=== PATIENT | male | born 1940 | race Caucasian/White ===

== ENCOUNTER 2018-07-03 16:46 | Observation (INO) | payer OTHER, BC ==
--- OUTSIDE RECORDS SUMMARY | 2018-07-03 16:50 | XMS REPORT | Clinical Summary ---
:1940 Author Organization [facility] Address [address] [place] [address] Care Team Providers Name Role Phone Luis MiguelEllis Primary Care Provider Allergies Active Allergy Reactions Severity Noted Date Comments No Known Drug Allergies 05/17/2016 Medications Medication Sig Dispensed Refills Start Date End Date Status aspirin (ECOTRIN) Take 1 tablet 0 Active 81 MG enteric every day by coated tablet oral route. FLAXSEED OIL ORAL Take 1,200 mg 0 Active by mouth. coconut oil 1,000 Take by 0 Active mg capsule mouth. cholecalciferol, Take by 0 Active vitamin D3, mouth. (VITAMIN D3) 5,000 unit tablet turmeric root Take by 0 Active extract 500 mg mouth. capsule glucosamine/chondr Take by 0 Active bird A sod (OSTEO mouth. BI-FLEX ORAL) vitamin B complex Take by mouth 0 Active (B COMPLEX 1 ORAL) daily. atorvastatin TAKE 1 TABLET 90 tablet 3 05/06/2018 Active (LIPITOR) 10 MG BY MOUTH tablet EVERY DAY amIODarone TAKE 1 TABLET 90 tablet 3 05/06/2018 Active (PACERONE) 200 MG BY MOUTH tablet EVERY DAY atorvastatin Take 1 tablet 90 tablet 3 04/27/2017 05/05/2018 Discontinued (LIPITOR) 10 MG (10 mg total) tablet by mouth daily. amIODarone Take 1 tablet 90 tablet 3 04/27/2017 05/05/2018 Discontinued (PACERONE) 200 MG (200 mg tablet total) by mouth daily. Active Problems Problem Noted Date abdominal aortic dilation (<3 cm) 10/11/2017 Abnormal electrocardiography 05/17/2016 Hyperlipidemia 05/17/2016 Hypertension 05/17/2016 Paroxysmal atrial fibrillation 05/17/2016 Encounters Date Type Specialty Care Team Description 05/14/2018 Orders Only Cardiology Sita Timothy Izzy At risk for amiodarone toxicity with superintendent terminal use (Primary Dx) 05/05/2018 Refill Cardiology Francine Estrada Med Refill MD [place] 05/03/2018 Office Visit Cardiology Francine Estrada Essential hypertension (Primary Dx); MD [place] Paroxysmal atrial fibrillation (HCC); Other hyperlipidemia; Hyperglycemia; On amiodarone therapy 10/11/2017 Office Visit Cardiovascular Robb Levy abdominal aortic dilation MD Delfino (<3 cm) (Primary Dx) 10/11/2017 Documentation Cardiovascular Sherrie Young, Reminder MA 10/08/2017 Documentation Cardiovascular Rylie Herrmann RN Follow-up on New Referral (Follow-up on New Referral) 09/26/2017 Documentation Cardiovascular Rylie Herrmann, RN New Referral for Dr. Levy from Dr. Joe Quinn (New Referral for Dr. Levy from Dr. Joe Quinn) after 07/02/2017 Immunizations Name Dates Previously Given Next Due FLUZONE HIGH-DOSE PF 04/15/2018 Family History Medical History Relation Name Comments No Known Problems Brother Hypertension Father No Known Problems Sister Relation Name Status Comments Brother Alive Father Mother Sister Alive Social History Tobacco Use Types Packs/Day Years Used Date Former Smoker 1 46 Smokeless Tobacco: Former User Tobacco Cessation: Counseling Given: Yes Alcohol Use Drinks/Week oz/Week Comments No Sex Assigned at Date Recorded Not on file Job Start Date Occupation Industry Not on file Not on file Not on file Travel History Travel Start Travel End No recent travel history available. Last Filed Vital Signs Vital Sign Reading Time Taken Blood Pressure 124/60 05/03/2018 2:35 PM CDT Pulse 66 05/03/2018 2:35 PM CDT Temperature 36.8 C (98.2 F) 10/11/2017 1:21 PM CDT Respiratory Rate 16 10/11/2017 1:21 PM CDT Oxygen Saturation - - Inhaled Oxygen Concentration - - Weight 81.6 kg (180 lb) 05/03/2018 2:35 PM CDT Height 172.7 cm (5' 8") 05/03/2018 2:35 PM CDT Body Mass Index 27.37 05/03/2018 2:35 PM CDT Plan of Treatment Health Maintenance Due Date Last Done Comments SHINGLES VACCINES (1 of 2) 1990 PNEUMOCOCCAL POLYSACCHARIDE VACCINE AGE 65 AND OVER 2005 PNEUMOCOCCAL-13 2005 INFLUENZA VACCINE Completed 04/15/2018 Procedures Procedure Name Priority Date/Time Associated Diagnosis Comments LIPID PANEL Routine 05/03/2018 3:26 Other hyperlipidemia Results for PM CDT this procedure are in the results section. THYROID PANEL WITH Routine 05/03/2018 3:26 Essential hypertension Results for TSH PM CDT Paroxysmal atrial this procedure fibrillation (HCC) are in the On amiodarone therapy results section. CBC WITH PLATELET Routine 05/03/2018 3:26 Essential hypertension Results for AND DIFFERENTIAL PM CDT Paroxysmal atrial this procedure fibrillation (HCC) are in the results section. COMPREHENSIVE Routine 05/03/2018 3:26 Essential hypertension Results for METABOLIC PANEL PM CDT Paroxysmal atrial this procedure fibrillation (HCC) are in the results section. ECG 12-LEAD Routine 05/03/2018 2:41 Essential hypertension Results for PM CDT Paroxysmal atrial this procedure fibrillation (HCC) are in the results section. ECG 12-LEAD Routine 10/11/2017 HEPATIC FUNCTION Routine 10/05/2017 9:23 Hypercholesteremia Results for PANEL AM CDT this procedure are in the results section. LIPID PANEL Routine 10/05/2017 9:23 Hypercholesteremia Results for AM CDT this procedure are in the results section. after 07/02/2017 Results Thyroid Panel With TSH (05/03/2018 3:26 PM CDT) T3 uptake 33 22 - 35 % [facility] [place] T4 9.3 4.9 - 10.5 mcg/dL [facility] [place] Free T4 index 3.1 1.4 - 3.8 [facility] [place] TSH 3.24 0.40 - 4.50 mIU/L [facility] [place] Specimen Blood Narrative Performed At FASTING:NO [facility] FASTING: NO Resulting Agency Comment Performing Organization Information: Site ID: [id number] Name: [facility] Address: [address] [place] [id number] Director: Shanda Hopson Performing Organization Address City/State/Zipcode Phone Number [employer] [address] [address] CBC with platelet and differential (05/03/2018 3:26 PM CDT) WBC 9.3 3.8 - 10.8 Thousand/uL [facility] [place] RBC 5.01 4.20 - 5.80 Million/uL [facility] [place] HGB 16.4 13.2 - 17.1 g/dL [facility] [place] HCT 47.3 38.5 - 50.0 % [facility] [place] MCV 94.4 80.0 - 100.0 fL [facility] [place] MCH 32.7 27.0 - 33.0 pg [facility] [place] MCHC 34.7 32.0 - 36.0 g/dL [facility] [place] RDW 13.4 11.0 - 15.0 % [facility] [place] Platelet count 299 140 - 400 Thousand/uL [facility] [place] MPV 9.7 7.5 - 12.5 fL [facility] [place] Neutrophils, absolute 6,305 1,500 - 7,800 cells/uL [facility] [place] Lymphocytes, absolute 1,767 850 - 3,900 cells/uL [facility] [place] Monocytes, absolute 856 200 - 950 cells/uL [facility] [place] Eosinophils, absolute 251 15 - 500 cells/uL [facility] [place] Basophils, absolute 121 0 - 200 cells/uL [facility] [place] Neutrophils 67.8 % [facility] [place] Lymphocytes 19.0 % [facility] [place] Monocytes 9.2 % [facility] [place] Eosinophils 2.7 % [facility] [place] Basophils + RC 1.3 % [facility] [place] Specimen Blood Narrative Performed At FASTING:NO [facility] FASTING: NO Resulting Agency Comment Performing Organization Information: Site ID: [id number] Name: [facility] Address: [address] [place] [id number] Director: Shanda Hopson Performing Organization Address City/State/Zipcode Phone Number [facility] [place] [phone] Lipid panel (05/03/2018 3:26 PM CDT)Only the most recent of2 resultswithin the time period is included. Cholesterol, total 137 <200 mg/dL [facility] [place] HDL cholesterol 43 >40 mg/dL [facility] [place] Triglycerides 122 <150 mg/dL [facility] [place] LDL cholesterol 74 mg/dL (calc) [facility] calculated Comment: [place] Reference range: <100 Desirable range <100 mg/dL for primary prevention; <70 mg/dL for patients with CHD or diabetic patients with > or=2 CHD risk factors. LDL-C is now calculated using the Maulik-Wise calculation, which is a validated novel method providing better accuracy than the Friedewald equation in the estimation of LDL-C. Maulik SS et al. RORO. 2013;310(19): 7489-5810 (http://education.Zeel/faq/YFZ396) Cholesterol/HDL ratio 3.2 <5.0 (calc) [facility] [place] Non-HDL cholesterol 94 <130 mg/dL [facility] Comment: (calc) [place] For patients with diabetes plus 1 major ASCVD risk factor, treating to a non-HDL-C goal of <100 mg/dL (LDL-C of <70 mg/dL) is considered a therapeutic option. Specimen Blood Narrative Performed At FASTING:NO [facility] FASTING: NO Resulting Agency Comment Performing Organization Information: Site ID: [id number] Name: [facility] Address: [address] [place] [id number] Director: Shanda Hopson Performing Organization Address City/State/Zipcode Phone Number [facility] [employer] [address] [address] Comprehensive metabolic panel (05/03/2018 3:26 PM CDT) Glucose 98 65 - 139 mg/dL [facility] Comment: [place] Non-fasting reference interval BUN, whole blood 23 7 - 25 mg/dL [facility] Creatinine 1.18 0.70 - 1.18 [facility] Comment: mg/dL [place] For patients >49 years of age, the reference limit for Creatinine is approximately 13% higher for people identified as -Bhutanese. EGFR Non-Afr. Bhutanese 59 (L) > OR=60 [facility] mL/min/1.73m2 [place] EGFR 69 > OR=60 [facility] mL/min/1.73m2 [place] BUN/creatinine ratio NOT APPLICABLE 6 - 22 (calc) [facility] Sodium 141 135 - 146 mmol/L [facility] [place] Potassium 4.5 3.5 - 5.3 mmol/L [facility] [place] Chloride 107 98 - 110 mmol/L [facility] [place] CO2 26 20 - 32 mmol/L [facility] Calcium 9.5 8.6 - 10.3 mg/dL [facility] [place] Protein 6.8 6.1 - 8.1 g/dL [facility] [place] Albumin, S 4.0 3.6 - 5.1 g/dL [facility] Globulin, total 2.8 1.9 - 3.7 g/dL [facility] (calc) [facility] Albumin/globulin ratio 1.4 1.0 - 2.5 (calc) [facility] [place] Total bilirubin 0.4 0.2 - 1.2 mg/dL [facility] [place] Alkaline phosphatase 88 40 - 115 U/L [facility] [place] AST 19 10 - 35 U/L [facility] [place] ALT 16 9 - 46 U/L [facility] [place] Specimen Blood Narrative Performed At FASTING:NO [facility] FASTING: NO Resulting Agency Comment Performing Organization Information: Site ID: [id number] Name: [facility] Address: [address] [place] [id number] Director: Shanda Hopson Performing Organization Address [facility] Phone Number [employer] [address] [address] ECG 12 lead (05/03/2018 2:41 PM CDT)Only the most recent of2 resultswithin the time period is included. Ventricular rate 64 [facility] Atrial rate 64 [facility] HI interval 196 [facility] QRSD interval 90 [facility] QT interval 430 [facility] QTC interval 443 [facility] P axis 1 68 [facility] QRS axis 1 -54 [facility] T wave axis 71 [facility] EKG impression Normal sinus rhythm-Left anterior fascicular block-T wave abnormality, consider anterolateral ischemia-Abnormal ECG-In automated comparison with ECG of 27-APR-2017 14:17,-T wave inversion less evident i [facility] n Lateral leads- Performing Organization Address [facility] Phone Number [facility] [address] [place] [address] Hepatic function panel (10/05/2017 9:23 AM CDT) Protein 6.3 6.0 - 8.5 g/dL [facility] Albumin, S 4.0 3.5 - 4.8 g/dL [facility] Total bilirubin 0.4 0.0 - 1.2 mg/dL [facility] Bilirubin direct 0.13 0.00 - 0.40 mg/dL [facility] Alkaline phosphatase 90 39 - 117 IU/L [facility] AST 13 0 - 40 IU/L [facility] ALT 9 0 - 44 IU/L [facility] Fasting status Y [facility] Specimen Blood Narrative Performed At Performed at: [facility] [address], [id number] Vacuum Truck Driver: Abdulaziz Argueta MD, Phone:[phone] Performing Organization Address City/State/Zipcode Phone Number [facility] after 07/02/2017 Insurance Payer Benefit Plan / Group Subscriber ID Type Phone Address MEDICARE MEDICARE PART A AND B xxxxxxxxxxx Medicare [place] BCBS BCBS PAR/TRAD PLAN xxxxxxxxxxxx Indemnity Advance Directives Patient has advance care planning documents on file. For more information, please contact:[facility] [place] [id number]
--- NOTE | 2018-07-03 17:20 | EKG ---
Test Date: 2018-07-03 Test Time: 17:04:22 3Rd Grade Teacher: CARIE MEASUREMENT RESULTS: Intervals: Rate: 75 [place]: 180 QRSD: 86 QT: 416 QTc: 464 [place]: P: 55 [place]: 180 QRS: -45 T: 77 INTERPRETIVE STATEMENTS: Normal sinus rhythm Left axis Septal infarct, age undetermined T wave abnormality, consider lateral ischemia Abnormal ECG Compared to ECG 07/29/2014 09:12:52 Myocardial infarct finding now present Sinus bradycardia no longer present T-wave abnormality still present Electronically Signed On 07-03-18 17:20:07 CHANCELLOR by Israel Romo
[2018-07-03] MEDS ORDERED: NA CHLORIDE 0.9% 1,000 ML ONE (17:23)
[2018-07-03 17:28] LABS: Absolute Lymphocytes (CBC) 1.2 K/uL (0.7-4.9); Absolute Monocytes 1.2 K/uL (0.1-1.3); Absolute Neutrophil 12.9 K/uL (1.8-8.0); Basophils % 0.4 % (0-1.3); Eosinophils % 0.3 % (0-4.4); Hematocrit 48.6 % (39.6-49.0); MPV 7.9 fL (7.6-11.3); Monocytes % 7.6 % (3.3-12.3); RBC Red Blood Cell Count 4.93 M/uL (4.33-5.43)
[2018-07-03 17:29] LABS: Protime INR 1.02
[2018-07-03 17:45] LABS: ALT/SGPT 21 U/L (12-78); AST/SGOT 18 U/L (15-37); Albumin 3.4 g/dL (3.4-5.0); Alkaline Phosphatase 94 U/L (45-117); BUN Blood Urea Nitrogen 15 mg/dL (7-18); Bicarbonate 25 mmol/L (21-32); Bilirubin Direct 0.2 mg/dL (0-0.2); Bilirubin Total 0.8 mg/dL (0.2-1.0); Glucose Level 119 mg/dL (74-106); Lipase 76 U/L (73-393); Magnesium 2.1 mg/dL (1.8-2.4); NT PRO-BNP 1466 pg/mL (<450); Protein, Total 7.5 g/dL (6.4-8.2); Sodium Level 140 mmol/L (136-145); Troponin (Emerg Dept Use Only) < 0.02 ng/mL (0.0-0.045)
--- NOTE | 2018-07-03 17:46 | EDPHYS ---
Physician Documentation [facility] Name: Edgar Lockwood Age: 77 yrs Sex: Male : 1940 Arrival Date: 07/03/2018 Time: 16:48 Bed 24 Private MD: None, None ED Physician Fernandez Berumen HPI: 07/03 17:36 This 77 yrs old Male presents to ER via Ambulatory with complaints of Chest rober Pain, Shoulder Pain, Shortness Of Breath. 17:36 The patient or guardian reports chest pain that is located primarily in the substernal rober area, anterior chest wall, bilaterally. Onset: 1 day(s) ago. The pain radiates to left neck, right neck, Associated signs and symptoms: Pertinent positives: dizziness, lightheadedness, shortness of breath. The chest pain is described as a heaviness, a pressure. Duration: The patient or guardian reports multiple episodes, with no pattern. Modifying factors: The symptoms are alleviated by nothing. the symptoms are aggravated by nothing. Severity of pain: At its worst the pain was mild in the emergency department the pain is unchanged. The patient has not experienced similar symptoms in the past. Historical: - Allergies: 16:57 No Known Allergies; aj - Home Meds: 16:57 atorvastatin 10 mg oral tab once daily [Active]; amiodarone 400 mg Oral tab 1 tab once aj daily [Active]; - PMHx: 16:57 Atrial Fib; Hyperlipidemia; aj - Immunization history:: Adult Immunizations up to date. - Social history:: Smoking status: Patient uses tobacco products, smokes one-half pack cigarettes per day. - Ebola Screening: : Patient negative for fever greater than or equal to 101.5 degrees Fahrenheit, and additional compatible Ebola Virus Disease symptoms Patient denies exposure to infectious person Patient denies travel to an Ebola-affected area in the 21 days before illness onset No symptoms or risks identified at this time. - Family history:: not pertinent. ROS: 17:36 Constitutional: Negative for fever, chills, and weight loss, Eyes: Negative for injury, rober pain, redness, and discharge, ENT: Negative for injury, pain, and discharge, Neck: Negative for injury, pain, and swelling, Respiratory: Negative for shortness of breath, cough, wheezing, and pleuritic chest pain, Abdomen/GI: Negative for abdominal pain, nausea, vomiting, diarrhea, and constipation, Back: Negative for injury and pain, : Negative for injury, bleeding, discharge, and swelling, MS/Extremity: Negative for injury and deformity, Skin: Negative for injury, rash, and discoloration, Neuro: Negative for headache, weakness, numbness, tingling, and seizure, Psych: Negative for depression, anxiety, suicide ideation, homicidal ideation, and hallucinations, Allergy/Immunology: Negative for hives, rash, and allergies, Endocrine: Negative for neck swelling, polydipsia, polyuria, polyphagia, and marked weight changes, Hematologic/Lymphatic: Negative for swollen nodes, abnormal bleeding, and unusual bruising. 17:36 Cardiovascular: Positive for chest pain, of the chest. Exam: 17:36 Constitutional: This is a well developed, well nourished patient who is awake, alert, rober and in no acute distress. Head/Face: Normocephalic, atraumatic. Eyes: Pupils equal round and reactive to light, extra-ocular motions intact. Lids and lashes normal. Conjunctiva and sclera are non-icteric and not injected. Cornea within normal limits. Periorbital areas with no swelling, redness, or edema. ENT: Nares patent. No nasal discharge, no septal abnormalities noted. Tympanic membranes are normal and external auditory canals are clear. Oropharynx with no redness, swelling, or masses, exudates, or evidence of obstruction, uvula midline. Mucous membranes moist. Neck: Trachea midline, no thyromegaly or masses palpated, and no cervical lymphadenopathy. Supple, full range of motion without nuchal rigidity, or vertebral point tenderness. No Meningismus. Chest/axilla: Normal chest wall appearance and motion. Nontender with no deformity. No lesions are appreciated. Cardiovascular: Regular rate and rhythm with a normal S1 and S2. No gallops, murmurs, or rubs. Normal PMI, no JVD. No pulse deficits. Respiratory: Lungs have equal breath sounds bilaterally, clear to auscultation and percussion. No rales, rhonchi or wheezes noted. No increased work of breathing, no retractions or nasal flaring. Abdomen/GI: Soft, non-tender, with normal bowel sounds. No distension or tympany. No guarding or rebound. No evidence of tenderness throughout. Back: No spinal tenderness. No costovertebral tenderness. Full range of motion. Male : Normal genitalia with no discharge or lesions. Skin: Warm, dry with normal turgor. Normal color with no rashes, no lesions, and no evidence of cellulitis. MS/ Extremity: Pulses equal, no cyanosis. Neurovascular intact. Full, normal range of motion. Neuro: Awake and alert, GCS 15, oriented to person, place, time, and situation. Cranial nerves II-XII grossly intact. Motor strength 5/5 in all extremities. Sensory grossly intact. Cerebellar exam normal. Normal gait. Psych: Awake, alert, with orientation to person, place and time. Behavior, mood, and affect are within normal limits. 17:36 Musculoskeletal/extremity: DVT Exam: No signs of deep vein thrombosis. no pain, no swelling, no tenderness, negative Homans' sign noted on exam, no appreciated bluish discoloration, no erythema, no increased warmth. Vital Signs: 16:57 BP 143 / 83; Pulse 85; Resp 20; Temp 99.2; Pulse Ox 100% on R/A; Weight 81.65 kg; aj Height 5 ft. 8 in. (172.72 cm); 19:24 BP 95 / 52; Pulse 57; Resp 17; Pulse Ox 96% on R/A; kr2 20:30 BP 110 / 76; Pulse 60; Resp 17; Pulse Ox 96% on R/A; kr2 21:44 BP 133 / 100; Pulse 64; Resp 17; Pulse Ox 95% on R/A; kr2 16:57 Body Mass Index 27.37 (81.65 kg, 172.72 cm) MDM: 17:01 Patient medically screened. [facility] 17:38 Data reviewed: vital signs, nurses notes, lab test result(s), EKG, radiologic studies, [facility] CT scan, plain films. 07/03 17:04 Order name: Basic Metabolic Panel; Complete Time: 17:48 [facility] 07/03 17:04 Order name: CBC with Diff; Complete Time: 17:35 [facility] 07/03 17:04 Order name: LFT's; Complete Time: 17:48 [facility] 07/03 17:04 Order name: Magnesium; Complete Time: 17:48 [facility] 07/03 17:04 Order name: NT PRO-BNP; Complete Time: 17:48 [facility] 07/03 17:04 Order name: PT-INR; Complete Time: 17:35 [facility] 07/03 17:04 Order name: Troponin (emerg Dept Use Only); Complete Time: 17:48 [facility] 07/03 17:04 Order name: XRAY Chest (1 view); Complete Time: 17:57 [facility] 07/03 17:04 Order name: Lipase; Complete Time: 17:48 [facility] 07/03 17:35 Order name: CT Aorta for Dissection; Complete Time: 19:23 [facility] 07/03 17:36 Order name: Blood Culture Adult (2) [facility] 07/03 18:04 Order name: CT Head Brain wo Cont; Complete Time: 19:23 [facility] 07/03 17:04 Order name: EKG; Complete Time: 17:05 [facility] 07/03 17:04 Order name: Cardiac monitoring; Complete Time: 17:10 [facility] 07/03 17:04 Order name: EKG - Nurse/Tech; Complete Time: 17:10 [facility] 07/03 17:04 Order name: IV Saline Lock; Complete Time: 17:10 [facility] 07/03 17:04 Order name: Labs collected and sent; Complete Time: 17:10 [facility] 07/03 17:04 Order name: O2 Per Protocol; Complete Time: 17:11 [facility] 07/03 17:04 Order name: O2 Sat Monitoring; Complete Time: 17:11 [facility] 07/03 17:04 Order name: Urine Dipstick-Ancillary (obtain specimen); Complete Time: 23:36 [facility] Administered Medications: 17:21 Drug: NS 0.9% 1000 ml Route: IV; Rate: 125 ml/hr; Site: right antecubital; kr2 22:10 Follow up: Response: No adverse reaction; IV Status: Infusion continued upon admission kr2 17:45 Drug: Lovenox 1 mg/kg Route: Sub-Q; Site: left lower abdomen; kr2 18:45 Follow up: Response: No adverse reaction kr2 17:45 Drug: Lopressor 25 mg Route: PO; kr2 19:00 Follow up: Response: No adverse reaction kr2 17:48 Drug: Aspirin 162 mg Route: PO; kr2 19:00 Follow up: Response: No adverse reaction kr2 17:48 Drug: Pepcid 20 mg Route: IVP; Site: right antecubital; kr2 18:15 Follow up: Response: No adverse reaction; Pain is decreased kr2 18:46 Drug: morphine 2 mg Route: IVP; Site: right antecubital; kr2 19:00 Follow up: Response: No adverse reaction; Pain is decreased kr2 18:46 Drug: Zofran 4 mg Route: IVP; Site: right antecubital; kr2 19:00 Follow up: Response: No adverse reaction kr2 20:57 Drug: Zosyn 3.375 grams Route: IVPB; Infused Over: 60 mins; Site: right antecubital; mg2 21:44 Follow up: Response: No adverse reaction; IV Status: Completed infusion kr2 22:00 Follow up: Response: No adverse reaction; IV Status: Completed infusion kr2 21:43 Not Given (Patient Refused): morphine 2 mg IVP once kr2 Disposition: 07/03/18 17:46 Hospitalization ordered by Andre Santamaria for Inpatient Admission. Preliminary diagnosis are Other chest pain, Dyspnea, Elevated white blood cell count, Essential (primary) hypertension, Abdominal tenderness - moderate rlq stranding, into ruq.etiology unclear. - Bed requested for Telemetry/MedSurg (Inpatient). - Status is Inpatient Admission. kr2 - Condition is Fair. - Problem is new. - Symptoms have improved. UTI on Admission? No Signatures: Dispatcher [employer] EDMS Kaleigh Tripp RN RN mw Myers, Amanda, RN RN aj Anderson, Corey, MD MD cha Reaves, Karey, RN RN kr2 Timothy Cortez RN RN mg2 Corrections: (The following items were deleted from the chart) 17:52 17:46 Hospitalization Ordered by Andre Santamaria MD for Observation. Preliminary diagnosis rober is Other chest pain; Dyspnea. Bed requested for Telemetry/MedSurg (observation). Status is Observation. Condition is Fair. Problem is new. Symptoms have improved. UTI on Admission? No. rober 19:41 17:52 07/03/2018 17:46 Hospitalization Ordered by Andre Santamaria MD for Observation. rober Preliminary diagnosis is Other chest pain; Dyspnea; Elevated white blood cell count; Essential (primary) hypertension. Bed requested for Telemetry/MedSurg (observation). Status is Observation. Condition is Fair. Problem is new. Symptoms have improved. UTI on Admission? No. rober 20:02 19:41 07/03/2018 17:46 Hospitalization Ordered by Andre Santamaria MD for Inpatient mw Admission. Preliminary diagnosis is Other chest pain; Dyspnea; Elevated white blood cell count; Essential (primary) hypertension; Abdominal tenderness - moderate rlq stranding, into ruq.etiology unclear. Bed requested for Telemetry/MedSurg (Inpatient). Status is Inpatient Admission. Condition is Fair. Problem is new. Symptoms have improved. UTI on Admission? No. [facility] 22:21 20:02 07/03/2018 17:46 Hospitalization Ordered by Andre Santamaria MD for Inpatient kr2 Admission. Preliminary diagnosis is Other chest pain; Dyspnea; Elevated white blood cell count; Essential (primary) hypertension; Abdominal tenderness - moderate rlq stranding, into ruq.etiology unclear. Bed requested for Telemetry/MedSurg (Inpatient). Status is Inpatient Admission. Condition is Fair. Problem is new. Symptoms have improved. UTI on Admission? No. mw
--- NOTE | 2018-07-03 17:46 | ER ---
Nurse's Notes [facility] Name: dEgar Lockwood Age: 77 yrs Sex: Male : 1940 Arrival Date: 07/03/2018 Time: 16:48 Bed 24 Private MD: None, None Diagnosis: Other chest pain;Dyspnea;Elevated white blood cell count;Essential (primary) hypertension;Abdominal tenderness-moderate rlq stranding, into ruq.etiology unclear Presentation: 07/03 16:56 Presenting complaint: Patient states: Sternal chest pain and SOB that radiates to aj bilateral shoulders that started this AM. Transition of care: patient was not received from another setting of care. Onset of symptoms was July 03, 2018. Risk Assessment: Do you want to hurt yourself or someone else? Patient reports no desire to harm self or others. Initial Sepsis Screen: Does the patient meet any 2 criteria? No. Patient's initial sepsis screen is negative. Does the patient have a suspected source of infection? No. Patient's initial sepsis screen is negative. Care prior to arrival: None. 16:56 Method Of Arrival: Ambulatory 16:56 Acuity: CLINT 3 Triage Assessment: 16:57 General: Appears in no apparent distress. uncomfortable, Behavior is calm, cooperative, aj appropriate for age. Pain: Complains of pain in chest. Neuro: Level of Consciousness is awake, alert, obeys commands, Oriented to person, place, time, situation, Appropriate for age. Cardiovascular: Reports chest pain, shortness of breath, Capillary refill < 3 seconds in bilateral fingers Patient's skin is warm and dry. Respiratory: Airway is patent Trachea midline Respiratory effort is even, unlabored, Respiratory pattern is regular, symmetrical. Derm: Skin is intact, is healthy with good turgor, Skin is pink, warm \T\ dry. normal. Historical: - Allergies: 16:57 No Known Allergies; aj - Home Meds: 16:57 atorvastatin 10 mg oral tab once daily [Active]; amiodarone 400 mg Oral tab 1 tab once aj daily [Active]; - PMHx: 16:57 Atrial Fib; Hyperlipidemia; aj - Immunization history:: Adult Immunizations up to date. - Social history:: Smoking status: Patient uses tobacco products, smokes one-half pack cigarettes per day. - Ebola Screening: : Patient negative for fever greater than or equal to 101.5 degrees Fahrenheit, and additional compatible Ebola Virus Disease symptoms Patient denies exposure to infectious person Patient denies travel to an Ebola-affected area in the 21 days before illness onset No symptoms or risks identified at this time. - Family history:: not pertinent. Screenin:05 Abuse screen: Denies threats or abuse. Denies injuries from another. Nutritional kr2 screening: No deficits noted. Tuberculosis screening: No symptoms or risk factors identified. Fall Risk None identified. Assessment: 17:05 General: Appears in no apparent distress. uncomfortable, well groomed, well developed, kr2 well nourished, Behavior is calm, cooperative, appropriate for age. Pain: Complains of pain in xyphoid area, mid-sternal area, right lateral anterior chest and right lateral posterior chest Pain radiates to right scapular area Pain currently is 6 out of 10 on a pain scale. Quality of pain is described as sharp, shooting, squeezing, Pain began gradually, Is continuous. Neuro: Level of Consciousness is awake, alert, obeys commands, Oriented to person, place, time, situation, Appropriate for age. Cardiovascular: Patient's skin is warm and dry. Rhythm is regular. Respiratory: Airway is patent Respiratory effort is even, unlabored, Respiratory pattern is regular, symmetrical, Breath sounds are clear bilaterally. GI: Abdomen is flat, non-distended, Bowel sounds present X 4 quads. Abd is soft and non tender X 4 quads. Patient currently denies diarrhea, nausea, vomiting. : Denies burning with urination, inability to void. EENT: Oral mucosa is moist. Derm: Skin is intact, with poor turgor Skin is pink, warm \T\ dry. Musculoskeletal: Circulation, motion, and sensation intact. 17:45 Reassessment: Patient appears in no apparent distress at this time. Patient and/or kr2 family updated on plan of care and expected duration. Pain level reassessed. Patient is alert, oriented x 3, equal unlabored respirations, skin warm/dry/pink. Patient states feeling better. 18:15 Reassessment: Patient appears in no apparent distress at this time. Patient and/or kr2 family updated on plan of care and expected duration. Pain level reassessed. Patient is alert, oriented x 3, equal unlabored respirations, skin warm/dry/pink. Patient states feeling better. 18:45 Reassessment: Patient complaining of headache, reported to Dr. Berumen, orders for CT kr2 of head and Morphine, see MAR. 19:25 Reassessment: Patient appears in no apparent distress at this time. Patient and/or kr2 family updated on plan of care and expected duration. Pain level reassessed. Patient is alert, oriented x 3, equal unlabored respirations, skin warm/dry/pink. Patient denies pain at this time. Patient states feeling better. 20:30 Reassessment: Patient appears in no apparent distress at this time. Patient and/or kr2 family updated on plan of care and expected duration. Pain level reassessed. Patient is alert, oriented x 3, equal unlabored respirations, skin warm/dry/pink. Patient denies pain at this time. Patient states feeling better. 21:30 Reassessment: Patient appears in no apparent distress at this time. Patient and/or kr2 family updated on plan of care and expected duration. Pain level reassessed. Patient is alert, oriented x 3, equal unlabored respirations, skin warm/dry/pink. Patient denies pain at this time. Patient states feeling better. 22:10 Reassessment: Patient appears in no apparent distress at this time. Patient and/or kr2 family updated on plan of care and expected duration. Pain level reassessed. Patient is alert, oriented x 3, equal unlabored respirations, skin warm/dry/pink. Patient denies pain at this time. Patient states feeling better. Vital Signs: 16:57 BP 143 / 83; Pulse 85; Resp 20; Temp 99.2; Pulse Ox 100% on R/A; Weight 81.65 kg; aj Height 5 ft. 8 in. (172.72 cm); 19:24 BP 95 / 52; Pulse 57; Resp 17; Pulse Ox 96% on R/A; kr2 20:30 BP 110 / 76; Pulse 60; Resp 17; Pulse Ox 96% on R/A; kr2 21:44 BP 133 / 100; Pulse 64; Resp 17; Pulse Ox 95% on R/A; kr2 16:57 Body Mass Index 27.37 (81.65 kg, 172.72 cm) ED Course: 16:48 Patient arrived in ED. sb2 16:48 None, None is Private Physician. sb2 16:57 Triage completed. aj 16:57 Arm band placed on left wrist. Patient placed in an exam room. aj 17:00 Fernandez Berumen MD is Attending Physician. rober 17:05 Patient has correct armband on for positive identification. Placed in gown. Bed in low kr2 position. Call light in reach. Side rails up X 1. Adult w/ patient. monitoring engineer on. Pulse ox on. NIBP on. Door closed. Head of bed elevated. 17:05 Patient maintains SpO2 saturation greater than 95% on room air. kr2 17:10 Inserted saline lock: 22 gauge in right antecubital area, using aseptic technique. kr2 ,using aseptic technique. by DINA Everett Blood collected. 17:16 EKG done, by radio technician. reviewed by Fernandez Berumen MD. sm3 17:30 Kalyani Samuels, DAVE is Primary Nurse. kr2 17:39 Andre Santamaria MD is Hospitalizing Provider. rober 17:48 XRAY Chest (1 view) In Process Unspecified. EDMS 18:[address] nj 18:21 CT completed. Patient tolerated procedure well. Patient moved back from CT. vm2 18:21 CT Head Brain wo Cont In Process Unspecified. EDMS 18:31 CT Aorta for Dissection In Process Unspecified. EDMS 22:10 Patient admitted, IV remains in place. kr2 22:10 No provider procedures requiring assistance completed. kr2 Administered Medications: 17:21 Drug: NS 0.9% 1000 ml Route: IV; Rate: 125 ml/hr; Site: right antecubital; kr2 22:10 Follow up: Response: No adverse reaction; IV Status: Infusion continued upon admission kr2 17:45 Drug: Lovenox 1 mg/kg Route: Sub-Q; Site: left lower abdomen; kr2 18:45 Follow up: Response: No adverse reaction kr2 17:45 Drug: Lopressor 25 mg Route: PO; kr2 19:00 Follow up: Response: No adverse reaction kr2 17:48 Drug: Aspirin 162 mg Route: PO; kr2 19:00 Follow up: Response: No adverse reaction kr2 17:48 Drug: Pepcid 20 mg Route: IVP; Site: right antecubital; kr2 18:15 Follow up: Response: No adverse reaction; Pain is decreased kr2 18:46 Drug: morphine 2 mg Route: IVP; Site: right antecubital; kr2 19:00 Follow up: Response: No adverse reaction; Pain is decreased kr2 18:46 Drug: Zofran 4 mg Route: IVP; Site: right antecubital; kr2 19:00 Follow up: Response: No adverse reaction kr2 20:57 Drug: Zosyn 3.375 grams Route: IVPB; Infused Over: 60 mins; Site: right antecubital; mg2 21:44 Follow up: Response: No adverse reaction; IV Status: Completed infusion kr2 22:00 Follow up: Response: No adverse reaction; IV Status: Completed infusion kr2 21:43 Not Given (Patient Refused): morphine 2 mg IVP once kr2 Outcome: 17:46 Decision to Hospitalize by Provider. rober 22:10 Admitted to Tele accompanied by tech, via wheelchair, room 205, with chart, Report kr2 called to DAVE Frausto 22:10 Condition: stable 22:10 Instructed on the need for admit, Demonstrated understanding of instructions. 22:21 Patient left the ED. kr2 Signatures: Dispatcher [employer] EDBisi Trujillo RN RN aj Anderson, Corey, MD MD cha Jordan, Nathan nj McGuire, Victoria vm2 Kalyani Samuels RN RN kr2 Jessie Spangler2 Timothy Cortez RN RN mg2 Hannah Roy 3
[2018-07-03] MEDS ORDERED: ASPIRIN 81 MG CHEWABLE TABLET ONE (17:47)
[2018-07-03] MEDS ORDERED: METOPROLOL TAR 25 MG TAB ONE (17:47)
[2018-07-03] MEDS ORDERED: FAMOTIDINE 20 MG/2 ML VIAL IV ONE (17:48)
[2018-07-03] MEDS ORDERED: ENOXAPARIN 80 MG/0.8 ML SQ ONE (17:48)
--- NOTE | 2018-07-03 17:55 | RAD REPORT ---
EXAM DESCRIPTION: RAD - Chest Single View - 07/03/2018 5:47 pm CLINICAL HISTORY: CHEST PAIN Chest pain. COMPARISON: CHEST SINGLE VIEW dated 05/20/2013; CHEST PA AND LAT 2 VIEW dated 10/27/2011; ABDOMEN 1 V IEW KUB dated 10/21/2011; CHEST SINGLE VIEW dated 10/21/2011 FINDINGS: Portable technique limits examination quality. The lungs are grossly clear. The heart is normal in size. No displaced fractures.Cervical spine hardw are plate noted. IMPRESSION: No acute intrathoracic process suspected.
--- NOTE | 2018-07-03 18:29 | RAD REPORT ---
EXAM DESCRIPTION: CT - Head Brain Wo Cont - 07/03/2018 6:22 pm CLINICAL HISTORY: HEADACHE Drowsiness COMPARISON: HEAD BRAIN W O CONTRAST dated 12/06/2008 TECHNIQUE: All CT scans are performed using dose optimization technique as appropriate and may inclu de automated exposure control or mA/KV adjustment according to patient size. FINDINGS: No intracranial hemorrhage, hydrocephalus or extra-axial fluid collection.Mild generalized brain atrophy.No areas of brain edema or evidence of midline shift. The paranasal sinuses and mastoids are clear. The calvarium is intact. IMPRESSION: No acute intracranial abnormality.
[2018-07-03] MEDS ORDERED: MORPHINE 4 MG/ML SYR ONE (18:30)
[2018-07-03] MEDS ORDERED: ONDANSETRON 4 MG/2 ML VIAL ONE (18:30)
--- NOTE | 2018-07-03 18:49 | RAD REPORT ---
EXAM DESCRIPTION: CT - Angio Aorta For Dissection - 07/03/2018 6:30 pm CLINICAL HISTORY: Chest pain radiating to the back. COUGH COMPARISON: No comparisons TECHNIQUE: CT angiography of the aorta was performed with MIPs. All CT scans are performed using dose optimization technique as appropriate and may include automated exposure control or mA/KV adjustment according to patient size. FINDINGS: A left aortic arch is present with bovine branching pattern of the great vessels.No acute aortic finding is seen such as aneurysm, penetrating ulcer or dissection. Areas of ectasia of the tho racic and abdominal aorta is identified with areas of noncalcified plaquing. The celiac axis, SMA, IM A and renal arteries demonstrates ostial atherosclerotic plaquing. No vessel occlusion identified. No evidence of pulmonary embolism. Diffuse COPD is identified. No focal lung infiltrate. The liver contains several small cysts. No aggressive liver lesion or biliary dilatation.The spleen, pancreas, left adrenal gland appear normal.The right adrenal gland contains a 10 mm adenoma. The righ t kidney demonstrates multiple cortical cysts. The left kidney contains a 18 mm stone in the left belem al pelvis without significant hydronephrosis. Multiple left renal cysts also present. Inflammation is seen in the right lower quadrant fat extending superiorly into the right upper quadra nt.A normal appendix is not seen.Sigmoid diverticulosis coli is present without diverticulitis.Small fat containing umbilical hernia. Moderate prostatomegaly is seen projecting into the bladder base. Small bilateral fat containing ingu inal hernias. Moderate degenerative change involves the upper lumbar spine. IMPRESSION: Moderate inflammatory changes are seen in the fat within the right lower quadrant extend ing to the right upper quadrant.The etiology of this finding is uncertain, however could be related t o a chronic appendicitis. Advise clinical physical exam correlation in this region for further assess ment. 18 mm stone in the left renal pelvis without hydronephrosis. No aortic dissection or other acute aortic finding demonstrated. COPD. Moderate prostatomegaly projecting into the bladder base.
[2018-07-03] MEDS ORDERED: PIPER/TAZO/NS 3.375gm 3.375 GM/100 ML BAG ONE (21:00)
[2018-07-03] MEDS ORDERED: ACETAMINOPHEN 500 MG TAB PO PRN (21:40)
[2018-07-03 22:48] VITALS: BMI 28.2
--- NOTE | 2018-07-04 00:09 | P.HP ---
Certification for Inpatient Patient admitted to: Observation With expected LOS: <2 Midnights Practitioner: I am a practitioner with admitting privileges, knowledge of patient current condition, hospital course, and medical plan of care. Services: Services provided to patient in accordance with Admission requirements found in Title 42 Section 412.3 of the Code of Federal Regulations Patient History Date of Service: 07/03/18 Reason for admission: chest pain History of Present Illness: Mr Lockwood is a 77 years old male with history of dyslipidemia and paroxysmal a.fib, who start this morning with substernal chest pain. He describe a pressure like pain, radiated to both shoulders and neck, associated with some nausea and SOB. Intensity is 4/10, constant, not worsening with chest movements. He denied diaphoresis episodes. He has never had this pain before. Initial trop I is negative. EKG shows sinus rhythm at 75 bpm with T wave inversion on anteroseptal leads. CT dissection done in ER shows no PE or dissection but incidentally found signs of fat stranding on the right lower quadrant extended to the upper quadrant, concerning for chronic appendicitis. The patient denied abdominal pain. Allergies No Known Allergies Allergy (Verified 07/29/14 09:17) - Past Medical/Surgical History Has patient received pneumonia vaccine in the past: Yes Diabetic: No -: Hyperlipedemia -: Paroxistic A.fib -: Rotator cuff sx rt -: Lumbar 2&3 fusion -: Back Sx - Family History Father History Unknown: Yes Mother -: Cancer Notes: metastatic - Social History Smoking Status: Current every day smoker Counseled patient to stop smoking for: less than 10 minutes Alcohol use: No CD- Drugs: No Caffeine use: Yes Place of Residence: Home Review of Systems 10-point ROS is otherwise unremarkable Physical Examination - Vital Signs Temperature: 97.3 F Blood Pressure: 100/57 Pulse: 59 Respirations: 17 Pulse Ox (%): 95 - Physical Exam General: Alert, In no apparent distress HEENT: Atraumatic, PERRLA, Mucous membr. moist/pink, EOMI, Sclerae nonicteric Neck: Supple, 2+ carotid pulse no bruit, No LAD, Without JVD or thyroid abnormality Respiratory: Clear to auscultation bilaterally, Normal air movement Cardiovascular: Regular rate/rhythm, Normal S1 S2 Gastrointestinal: Normal bowel sounds, No tenderness, No rebound, No guarding Musculoskeletal: No tenderness Integumentary: No rashes Neurological: Normal gait, Normal speech, Normal strength at 5/5 x4 extr, Normal tone, Normal affect Lymphatics: No axilla or inguinal lymphadenopathy - Studies Laboratory Data (last 24 hrs) 07/03/18 17:16: PT 12.0, INR 1.02 07/03/18 17:16: WBC 15.5 H, Hgb 16.6, Hct 48.6, Plt Count 268 07/03/18 17:16: Sodium 140, Potassium 4.0, BUN 15, Creatinine 1.25, Glucose 119 H, Magnesium 2.1, Total Bilirubin 0.8, AST 18, ALT 21, Alkaline Phosphatase 94, Lipase 76 Assessment and Plan - Problems (Diagnosis) (1) Chest pain Current Visit: Yes Status: Acute Qualifiers: Chest pain type: precordial pain Qualified Code(s): R07.2 - Precordial pain (2) Dyslipidemia Current Visit: Yes Status: Acute (3) Paroxysmal A-fib Current Visit: Yes Status: Acute (4) Chronic appendicitis Current Visit: Yes Status: Acute - Plan The patient will be admitted to the hospital due to chest pain in order to R/O ACS. So far trop I is negative. EKG with T wave inversion on anteroseptal leads. Will order serial cardiac enzymes and ekg. Consult cardiology team. Order an echo. Consult Surgery due to signs of chronic appendicitis. - Advance Directives Does patient have a Living Will: No Does patient have a Durable POA for Healthcare: Yes - Code Status/Comfort Care Code Status Assessed: Yes Code Status: Full Code
[2018-07-04 06:51] LABS: Absolute Lymphocytes (CBC) 1.4 K/uL (0.7-4.9); Absolute Monocytes 1.2 K/uL (0.1-1.3); Absolute Neutrophil 5.8 K/uL (1.8-8.0); Basophils % 0.8 % (0-1.3); Eosinophils % 3.3 % (0-4.4); Hematocrit 42.4 % (39.6-49.0); Lymphocytes % 15.6 % (15.3-44.8); MPV 8.1 fL (7.6-11.3); Monocytes % 14.1 % (3.3-12.3); RBC Red Blood Cell Count 4.24 M/uL (4.33-5.43)
[2018-07-04 07:04] LABS: Albumin 2.8 g/dL (3.4-5.0); Bilirubin Total 0.9 mg/dL (0.2-1.0); Phosphorus 3.5 mg/dL (2.5-4.9); Potassium 4.4 mmol/L (3.5-5.1); Protein, Total 6.2 g/dL (6.4-8.2)
[2018-07-04] MEDS ORDERED: ASPIRIN 81 MG CHEWABLE TABLET PO SCH (09:00)
[2018-07-04] MEDS ORDERED: REGADENOSON 0.4 MG/5 ML SYR IV ONE (09:11)
[2018-07-04 09:35] VITALS: TEMP 97.3
--- NOTE | 2018-07-04 09:59 | P.HP ---
Date of Service: 07/04/18 PC: I was asked to see this 77-year-old male in regards to a possible chronic appendicitis. HPC: Yesterday patient was experiencing some pain in the upper portion of his chest. Describes almost up in his throat. Severe sharp type of the pain that felt like he was cutting is air out. He came to the emergency room for evaluation and treatment. PMH: Atrial fibrillation, hyperlipidemia SOC: No known allergy his medicines were reviewed SYS REVIEW: Otherwise healthy male, smokes about a pack a day, works as a box truck driver. Has been in otherwise good health. No change in diet, no dysphagia, no weight loss or change in bowel habit. Denies any urinary complaints O/E awake alert walking around the room today in good spirits vital signs are stable HEENT: Not jaundice Chest: Chest movement equal bilaterally ABD: Abdomen is soft, no tenderness guarding or rebound LOCO: Intact DATA: White cell count down to normal today. CT scan shows some inflammation in the retroperitoneum on the right side, patient is of pain symptoms or cause for the etiology of this IMPRESSION: Nonsurgical abdomen PLAN: Patient being worked up from a cardiac standpoint. I do not feel he has any acute abdominal issues at this time. Will follow with you.
[2018-07-04 10:18] VITALS: O2SAT 95
--- NOTE | 2018-07-04 11:46 | RAD REPORT ---
EXAM DESCRIPTION: NM - Rest Stress Cardiac Imaging - 07/04/2018 11:03 am CLINICAL HISTORY: Chest pain. COMPARISON: None. TECHNIQUE: The patient was administered approximately 10mCi of Tc 99m Sestamibi prior to resting SPE CT imaging of the heart. The patient was then administered approximately 30 mCi of Tc 99m Sestamibi f ollowing exercise or pharmacologic stress. Multiplanar SPECT images were reviewed. FINDINGS: There is uniformity of radiotracer uptake involving the entire left ventricular myocardiu m on stress and rest images. Left ventricular ejection fraction equals 64% IMPRESSION: No evidence of stress-induced ischemia
[2018-07-04 12:54] VITALS: BP 124/59
--- NOTE | 2018-07-04 18:32 | P.SSS ---
Patient History Date of Service: 07/04/18 Primary Care Provider: None Reason for admission: chest pain History of Present Illness: Mr Lockwood is a 77 years old male with history of dyslipidemia and paroxysmal a.fib, who start this morning with substernal chest pain. He describe a pressure like pain, radiated to both shoulders and neck, associated with some nausea and SOB. Intensity is 4/10, constant, not worsening with chest movements. He denied diaphoresis episodes. He has never had this pain before. Initial trop I is negative. EKG shows sinus rhythm at 75 bpm with T wave inversion on anteroseptal leads. CT dissection done in ER shows no PE or dissection but incidentally found signs of fat stranding on the right lower quadrant extended to the upper quadrant, concerning for chronic appendicitis. The patient denied abdominal pain. Allergies No Known Allergies Allergy (Verified 07/29/14 09:17) Home Medications: Amiodarone HCl [Cordarone*] 200 mg PO DAILY 07/04/18 Atorvastatin Calcium 10 mg PO BEDTIME 07/04/18 - Past Medical/Surgical History Has patient received pneumonia vaccine in the past: Yes Diabetic: No -: Hyperlipedemia -: Paroxistic A.fib -: Rotator cuff sx rt -: Lumbar 2&3 fusion -: Back Sx - Family History Father History Unknown: Yes Mother -: Cancer Notes: metastatic - Social History Smoking Status: Current every day smoker Alcohol use: No CD- Drugs: No Caffeine use: Yes Place of Residence: Home Review of Systems 10-point ROS is otherwise unremarkable Physical Examination - Vital Signs Temperature: 97.3 F Blood Pressure: 124/59 Pulse: 50 Respirations: 18 Pulse Ox (%): 95 - Physical Exam General: Alert, In no apparent distress, Oriented x3 HEENT: Atraumatic, PERRLA, Mucous membr. moist/pink, EOMI, Sclerae nonicteric Neck: Supple, 2+ carotid pulse no bruit, No LAD, Without JVD or thyroid abnormality Respiratory: Clear to auscultation bilaterally, Normal air movement Cardiovascular: Regular rate/rhythm, Normal S1 S2 Gastrointestinal: Normal bowel sounds, No tenderness Musculoskeletal: No tenderness Integumentary: No rashes Neurological: Normal gait, Normal speech, Normal strength at 5/5 x4 extr, Normal tone, Normal affect Lymphatics: No axilla or inguinal lymphadenopathy Treatment Summary: Patient was admitted in a hospital for chest pain. CT scan of chest was negative for aortic dissection, pulmonary embolism. ACS was ruled out with a negative stress test and echo normal echocardiogram. Troponins remained negative throughout the stay, EKG with nonspecific changes. Cardiology was consulted, she he was cleared for discharge by cardiology. CT scan of the abdomen did show some fat stranding on the right lower quadrant of the abdomen, suspected chronic appendicitis. General surgery was consulted, no surgical intervention planned. Patient denied any abdominal pain or symptoms throughout the stay and his abdominal exam remained unimpressive throughout the stay. Patient was discharged in a stable manner. All questions were answered and patient verbalized understanding. was at bedside as well. Did speak to his son over the phone and explained symptoms/test results, etc. - Disposition Disposition: ROUTINE DISCHARGE Condition: GOOD Consultations: Cardiology Patient Discharge Instructions: Please follow up with your primary care physician in 1 week. Diet: AHA Activity: Ad adelaida Physician Review: Patient Assessed, Agree with Above Assessment and Plan Time Spent Managing Pts Care (In Minutes): 55
[2018-07-04] MEDS ORDERED: ATORVASTATIN 10 MG TAB PO SCH (21:00)
--- NOTE | 2018-07-05 01:17 | CON ---
Date of Consultation: 07/04/[address] Santamaria's service on 07/03/2018. I saw the patient on 07/04/2018. Reason For Consultation: Chest pain. History Of Present Illness: Mr. Lockwood is a patient with history of atrial fibrillation, coronary ar lizett disease, status post stent in the past, and dyslipidemia. [facility]. He came in with initially shoulder pain on the right side. This moved to the l eft side. He also had a right-sided headache, sharp chest pain, stabbing. No nausea, vomiting, diap horesis, PND, orthopnea, pedal edema, palpitations, or syncope. He stated that when he took a deep b reath, his chest pain was worse. His troponin was negative. His BNP was 1466. Creatinine is 1.25. He had a white count of 15,000. Past Medical History: As stated above. Allergies: NONE. Review of Systems: Negative. Social History: Negative. Family History: Noncontributory. Medications At Home: Include amiodarone and Lipitor. Physical Examination: Vital Signs: Stable, afebrile. HEENT: Negative. Neck: Supple with no bruit. Chest: Clear to auscultation and percussion. Cardiac: Exam revealed a regular rhythm and rate without any murmurs, gallops, or rubs. Abdomen: Benign. Extremities: Revealed no clubbing, cyanosis, or edema. Diagnostic Data: Include a white count of 15,000, creatinine of 1.25, and negative troponin. He had an 18 mm kidney stones by CT of the abdomen as well as chronic appendicitis type of picture with enl arged prostate. Impression And Plan: 1.Atypical chest pain in a patient with history of coronary artery disease, status post PCI. He als o has dyslipidemia. An echocardiogram is pending and a Lexiscan is pending. 2.Possible chronic appendicitis, an 18 mm kidney stone. Surgical consult is pending. 3.Elevated white count. No clinical significance at this point. 4.Elevated BNP. No clinical significance. 5.COPD by CT angiogram. 6.Atrial fibrillation in sinus rhythm, on amiodarone and aspirin. 7.Dyslipidemia. I would not be surprised if his symptoms are secondary to cervical spondylosis. We will see what the above testing show prior to making final decisions. JAMI/INÉS Voice ID: [id number] Report ID: [id number]
--- NOTE | 2018-07-05 07:30 | TREADPHA ---
DX: CHEST PAIN Date of Study: 07/04/2018 Ht: 5 8 Wt: 185 lb 12.8 oz Consulting Physician: LEN MEDICATIONS: TYLENOL, CORDARONE, ASPIRIN, LIPITOR HISTORY: 77 YEAR OLD MALE WITH COMPLAINTS OF CHEST PAIN AND HYPERTENSION. HISTORY OF ATRIAL FIBRILLATION AND HYPERLIPIDEMIA. PATIENT SMOKES TWO PACKS PER WEEK, NON DRINKER. PHYSICIAL EXAMINATION: RESTING B.P.: 96/49 RESTING H.R.: 50 RESTING EKG: SINUS BRADYCARDIA, PROLONGED QT, NON-SPECIFIC T WAVE ABNORMALITY. PROTOCOL: LEXISCAN EXERCISE TIME: 3:30 B.P. AT PEAK STRESS: 111/61 IMPRESSION: LEXISCAN INJECTED, FOLLOWED BY CARDIOLITE PER PROTOCOL. SEE NUCLEAR MEDICINE REPORT. NO SUPRAVENTRICULAR TACHYCARDIA. NO VENTRICULAR TACHYCARDIA. ONE PREMATURE ATRIAL COMPLEX. NO PREMATURE VENTRICULAR COMPLEXES. PATIENT REPORTED NO CHEST PAIN OR TENDERNESS THROUGHOUT PROCEDURE.
--- NOTE | 2018-07-05 08:08 | ECHO ---
HEIGHT: 5 ft 8 in WEIGHT: 185 lb 12.8 oz DATE OF STUDY: 07/04/[address]: Kishor Alvarado MD 2-DIMENSIONAL: YES M.MODE: YES DOPPLER: YES COLOR FLOW: YES TDS: YES PORTABLE: NO DEFINITY: NO BUBBLE STUDY: NO DIAGNOSIS: CHEST PAIN CARDIAC HISTORY: CATHERIZATION: NO SURGERY: NO PROSTHETIC VALVE: NO PACEMAKER: NO MEASUREMENTS (cm) DIASTOLIC (NORMALS) SYSTOLIC (NORMALS) IVSd 1.1 (0.6-1.2) LA Diam 3.6 (1.9-4.0) LVEF 79% LVIDd 5.6 (3.5-5.7) LVIDs 2.9 (2.0-3.5) %FS 48% LVPWd 1.2 (0.6-1.2) Ao Diam 3.5 (2.0-3.7) 2 DIMENSIONAL ASSESSMENT: RIGHT ATRIUM: NORMAL LEFT ATRIUM: NORMAL RIGHT VENTRICLE: NORMAL LEFT VENTRICLE: NORMAL TRICUSPID VALVE: NORMAL MITRAL VALVE: NORMAL PULMONIC VALVE: NORMAL AORTIC VALVE: NORMAL PERICARDIAL EFFUSION: NONE AORTIC ROOT: NORMAL LEFT VENTRICULAR WALL MOTION: NORMAL DOPPLER/COLOR FLOW: NORMAL COMMENTS: NORMAL 2D ECHOCARDIOGRAM WITH DOPPLER. NO WALL MOTION ABNORMALITY. NO EFFUSION. TECHNOLOGIST: Nai KERN
[2018-07-05] MEDS ORDERED: AMIODARONE HCL 200 MG TAB PO SCH (09:00)
== END 2018-07-04 14:56 | disposition home or self-care (01) ==
LOC: ER 16:46 → ERHOLD 18:35 → 2ND 21:33
PROVIDERS: ADMIT Family Medicine; ATTEND Internal Medicine
DX: R07.9 Chest pain, unspecified (principal); E78.5 Hyperlipidemia, unspecified; I48.0 Paroxysmal atrial fibrillation; F17.210 Nicotine dependence, cigarettes, uncomplicated
CPT/HCPCS: 36415; 70450; 71045; 71275; 74175; 78452; 80048; 80053; 80076; 83690; 83735; 83880; 84100; 84484; 85025; 85610; 87040; 93005; 93017; 93306; 96361; 96365; 96372; 96375; 99285; A9500; G0378; J1650; J2405; J2543; J2785; J7030; Q9967

== ENCOUNTER 2018-08-04 01:52 | Emergency (ER) | payer OTHER, BC ==
--- OUTSIDE RECORDS SUMMARY | 2018-08-04 01:55 | XMS REPORT | Clinical Summary ---
:1940 Author Organization [facility] Address [address] [place] [address] Care Team Providers Name Role Phone Luis Miguel [facility] Primary Care Provider Allergies Active Allergy Reactions [...] Izzy At risk for amiodarone toxicity with residential use (Primary Dx) 05/05/2018 Refill Cardiology Francine [...] Dr. Levy from Dr. Joe Quinn) after 08/03/2017 Immunizations Name Dates Previously Given Next Due [...] procedure are in the results section. after 08/03/2017 Results Thyroid Panel With TSH (05/03/2018 3:26 PM CDT) T3 uptake 33 22 - 35 % [facility] [place] T4 9.3 4.9 - 10.5 mcg/dL [facility] [place] Free T4 index 3.1 1.4 - 3.8 [facility] [place] TSH 3.24 0.40 - 4.50 mIU/L [facility] [place] Specimen Blood Narrative Performed At FASTING:NO [facility] FASTING: NO Resulting Agency Comment Performing Organization Information: Site ID: [id number] Name: [facility] Address: [address] [place] [id number] Director: Shanda Hopson Performing Organization Address City/State/Zipcode Phone Number [facility] [address] [address] CBC with platelet and differential (05/03/2018 3:26 PM CDT) WBC 9.3 3.8 - 10.8 Thousand/uL [facility] [place] RBC 5.01 4.20 - 5.80 Million/uL [facility] [place] HGB 16.4 13.2 - 17.1 g/dL [facility] [place] HCT 47.3 38.5 - 50.0 % [facility] [place] MCV 94.4 80.0 - 100.0 fL [facility] [place] MCH 32.7 27.0 - 33.0 pg [facility] [place] MCHC 34.7 32.0 - 36.0 g/dL [facility] [place] RDW 13.4 11.0 - 15.0 % [facility] [place] Platelet count 299 140 - 400 Thousand/uL [facility] [place] MPV 9.7 7.5 - 12.5 fL [facility] [place] Neutrophils, absolute 6,305 1,500 - 7,800 cells/uL [facility] [place] Lymphocytes, absolute 1,767 850 - 3,900 cells/uL [facility] [place] Monocytes, absolute 856 200 - 950 cells/uL [facility] [place] Eosinophils, absolute 251 15 - 500 cells/uL [facility] [place] Basophils, absolute 121 0 - 200 cells/uL [facility] [place] Neutrophils 67.8 % [facility] [place] Lymphocytes 19.0 % [facility] [place] Monocytes 9.2 % [facility] [place] Eosinophils 2.7 % [facility] [place] Basophils + RC 1.3 % [facility] [place] Specimen Blood Narrative Performed At FASTING:NO [facility] FASTING: NO Resulting Agency Comment Performing Organization Information: Site ID: [id number] Name: [facility] Address: [address] [place] [id number] Director: Shanda Hopson Performing Organization Address City/State/Zipcode Phone Number [facility] [place] [phone] Lipid panel (05/03/2018 3:26 PM CDT)Only the most recent of2 resultswithin the time period is included. Cholesterol, total 137 <200 mg/dL [facility] [place] HDL cholesterol 43 >40 mg/dL [facility] [place] Triglycerides 122 <150 mg/dL [facility] [place] LDL cholesterol 74 mg/dL (calc) [facility] calculated Comment: [place] Reference range: <100 Desirable range <100 mg/dL for primary prevention; <70 mg/dL for patients with CHD or diabetic patients with > or=2 CHD risk factors. LDL-C is now calculated using the Maulik-Wise calculation, which is a validated novel method providing better accuracy than the Friedewald equation in the estimation of LDL-C. Maulik SS et al. RORO. 2013;310(19): 4950-6306 (http://education.Cartavi/faq/XXI720) Cholesterol/HDL ratio 3.2 <5.0 (calc) [facility] [place] Non-HDL cholesterol 94 <130 mg/dL [facility] Comment: (calc) [place] For patients with diabetes plus 1 major ASCVD risk factor, treating to a non-HDL-C goal of <100 mg/dL (LDL-C of <70 mg/dL) is considered a therapeutic option. Specimen Blood Narrative Performed At FASTING:NO [facility] FASTING: NO Resulting Agency Comment Performing Organization Information: Site ID: [id number] Name: [facility] Address: [address] [place] [phone] Director: Shanda Hopson Performing Organization Address City/State/Zipcode Phone Number [facility] [address] [address] Comprehensive metabolic panel (05/03/2018 3:26 PM CDT) Glucose 98 65 - 139 mg/dL [facility] Comment: [place] Non-fasting reference interval BUN, whole blood 23 7 - 25 mg/dL [facility] Creatinine 1.18 0.70 - 1.18 [facility] Comment: mg/dL [place] For patients >49 years of age, the reference limit for Creatinine is approximately 13% higher for people identified as -Panamanian. EGFR Non-Afr. [place]ian 59 (L) > OR=60 [facility] mL/min/1.73m2 [place] EGFR 69 > OR=60 [facility] mL/min/1.73m2 [place] BUN/creatinine ratio NOT APPLICABLE 6 - 22 (calc) [facility] Sodium 141 135 - 146 mmol/L [facility] [place] Potassium 4.5 3.5 - 5.3 mmol/L [facility] [place] Chloride 107 98 - 110 mmol/L [facility] [place] CO2 26 20 - 32 mmol/L [facility] [place] Calcium 9.5 8.6 - 10.3 mg/dL [facility] [place] Protein 6.8 6.1 - 8.1 g/dL [facility] [place] Albumin, S 4.0 3.6 - 5.1 g/dL [facility] [place] Globulin, total 2.8 1.9 - 3.7 g/dL [facility] (calc) [place] Albumin/globulin ratio 1.4 1.0 - 2.5 (calc) [facility] [place] Total bilirubin 0.4 0.2 - 1.2 mg/dL [facility] [place] Alkaline phosphatase 88 40 - 115 U/L [facility] [place] AST 19 10 - 35 U/L [facility] [place] ALT 16 9 - 46 U/L [facility] [place] Specimen Blood Narrative Performed At FASTING:NO [facility] FASTING: NO Resulting Agency Comment Performing Organization Information: Site ID: [id number] Name: [facility] Address: [address] [place] [phone] Director: Shanda Hopson Performing Organization Address [facility] Phone Number [facility] [address] [address] ECG 12 lead (05/03/2018 2:41 PM CDT)Only the most recent of2 resultswithin the time period is included. Ventricular rate 64 [facility] Atrial rate 64 [facility] DC interval 196 [facility] QRSD interval 90 [...] MUSE n Lateral leads- Performing Organization Address [facility] Phone Number [facility] [address] [place] [address] Hepatic function panel (10/05/2017 9:23 AM CDT) [...] Specimen Blood Narrative Performed At Performed at: - [facility] [address], [id number] Display Decorator: Abdulaziz Argueta MD, Phone:[phone] Performing Organization Address City/State/Zipcode Phone Number [facility] after 08/03/2017 Insurance Payer Benefit Plan / Group Subscriber ID Type Phone Address MEDICARE MEDICARE PART A AND B xxxxxxxxxxx Medicare [place], [place] BCBS BCBS PAR/TRAD PLAN xxxxxxxxxxxx Indemnity Advance Directives Patient has advance care planning documents on file. For more information, please contact:Zacarias King[address] [place] [phone]
--- NOTE | 2018-08-04 03:53 | EDPHYS ---
Physician Documentation [facility] Name: Edgar Lockwood II Age: 77 yrs Sex: Male : 1940 Arrival Date: 08/04/2018 Time: 01:53 Bed 20 Private MD: ED Physician Alfie Myers HPI: 08/04 03:30 This 77 yrs old Male presents to ER via Ambulatory with complaints of gs Shoulder Pain. 03:30 The patient or guardian complains of an injury, pain. right shoulder. Context: The gs problem was sustained at home, resulted from a fall, rung of ladder. Onset: The symptoms/episode began/occurred acutely, 2 day(s) ago. Modifying factors: The symptoms are aggravated by movement. Associated signs and symptoms: Pertinent negatives: Numbness in right arm and right shoulder. Severity of symptoms: At their worst the symptoms were moderate, in the emergency department the symptoms are unchanged. The patient has not experienced similar symptoms in the past. The patient has not recently seen a physician. Historical: - Allergies: 02:08 NKDA; bb - Home Meds: 02:08 amiodarone 400 mg Oral tab 1 tab once daily [Active]; atorvastatin 10 mg Oral tab once bb daily [Active]; aspirin 81 mg Oral chew 1 tab once daily [Active]; - PMHx: 02:08 Atrial Fib; Hyperlipidemia; bb - PSHx: 02:08 right rotator cuff; multiple spinal surgeries; hand surgery; bb - Immunization history:: Adult Immunizations up to date, Flu vaccine is up to date. - Social history:: Smoking status: Patient/guardian denies using tobacco, Patient/guardian denies using alcohol. - Ebola Screening: : Patient negative for fever greater than or equal to 101.5 degrees Fahrenheit, and additional compatible Ebola Virus Disease symptoms Patient denies exposure to infectious person Patient denies travel to an Ebola-affected area in the 21 days before illness onset. ROS: 03:30 All other systems are negative. gs Exam: 03:30 Head/Face: Normocephalic, atraumatic. Eyes: Pupils equal round and reactive to light, gs extra-ocular motions intact. Lids and lashes normal. Conjunctiva and sclera are non-icteric and not injected. Cornea within normal limits. Periorbital areas with no swelling, redness, or edema. ENT: Nares patent. No nasal discharge, no septal abnormalities noted. Tympanic membranes are normal and external auditory canals are clear. Oropharynx with no redness, swelling, or masses, exudates, or evidence of obstruction, uvula midline. Mucous membranes moist. Neck: Trachea midline, no thyromegaly or masses palpated, and no cervical lymphadenopathy. Supple, full range of motion without nuchal rigidity, or vertebral point tenderness. No Meningismus. Chest/axilla: Normal chest wall appearance and motion. Nontender with no deformity. No lesions are appreciated. Cardiovascular: Regular rate and rhythm with a normal S1 and S2. No gallops, murmurs, or rubs. Normal PMI, no JVD. No pulse deficits. Respiratory: Lungs have equal breath sounds bilaterally, clear to auscultation and percussion. No rales, rhonchi or wheezes noted. No increased work of breathing, no retractions or nasal flaring. Abdomen/GI: Soft, non-tender, with normal bowel sounds. No distension or tympany. No guarding or rebound. No evidence of tenderness throughout. Back: No spinal tenderness. No costovertebral tenderness. Full range of motion. Skin: Warm, dry with normal turgor. Normal color with no rashes, no lesions, and no evidence of cellulitis. Neuro: Awake and alert, GCS 15, oriented to person, place, time, and situation. Cranial nerves II-XII grossly intact. Motor strength 5/5 in all extremities. Sensory grossly intact. Cerebellar exam normal. Normal gait. 03:30 Constitutional: The patient appears alert, awake. 03:30 Musculoskeletal/extremity: ROM: limited active range of motion, limited passive range of motion, limited active range of motion due to pain, limited passive range of motion due to pain, Pulses: are normal with no appreciated deficits, Sensation intact. Joints: the right shoulder displays pain at rest, painful range of motion, swelling, tenderness. Vital Signs: 02:08 BP 136 / 61; Pulse 59; Resp 16 S; Temp 98.2(O); Pulse Ox 95% on R/A; Weight 81.65 kg bb (R); Height 5 ft. 8 in. (172.72 cm) (R); Pain 10/10; 03:00 BP 131 / 62; Pulse 63; Resp 17; Pulse Ox 98% ; rr5 04:00 BP 131 / 65; Pulse 60; Resp 17; Pulse Ox 99% ; rr5 02:08 Body Mass Index 27.37 (81.65 kg, 172.72 cm) bb MDM: 02:51 Patient medically screened. 03:30 Differential diagnosis: humeral head fracture, glenoid fracture, DJD, tendonitis. Data gs reviewed: vital signs, nurses notes, radiologic studies. Counseling: I had a detailed discussion with the patient and/or guardian regarding: the historical points, exam findings, and any diagnostic results supporting the discharge/admit diagnosis, radiology results, the need for outpatient follow up. Response to treatment: the patient's symptoms have mildly improved after treatment, and as a result, I will discharge patient. 08/04 02:49 Order name: Shoulder Right (2 View) XRAY Administered Medications: No medications were administered Disposition: 08/04/18 03:52 Discharged to Home. Impression: Other specific joint derangements of right shoulder, not elsewhere classified. - Condition is Stable. - Discharge Instructions: Shoulder Pain. - Prescriptions for Tylenol- Codeine #4 300-60 mg Oral Tablet - take 1 tablet by ORAL route every 6 hours As needed; 10 tablet. - Medication Reconciliation Form, Thank You Letter, Antibiotic Education, Prescription Opioid Use form. - Follow up: Private Physician; When: 2 - 3 days; Reason: Re-evaluation by your physician. Follow up: Marcos Mccallum MD; When: 2 - 3 days; Reason: Re-evaluation by your physician. Signatures: Dispatcher [employer] EDNE Chloe Meza RN RN bb Starr, Gregory, MD MD Rd Constantino RN RN rr5 Corrections: (The following items were deleted from the chart) 04:19 03:52 08/04/2018 03:52 Discharged to Home. Impression: Other specific joint rr5 derangements of right shoulder, not elsewhere classified. Condition is Stable. Forms are Medication Reconciliation Form, Thank You Letter, Antibiotic Education, Prescription Opioid Use. Follow up: Private Physician; When: 2 - 3 days; Reason: Re-evaluation by your physician. Follow up: Marcos Mccallum; When: 2 - 3 days; Reason: Re-evaluation by your physician.
--- NOTE | 2018-08-04 03:53 | ER ---
Nurse's Notes [facility] Name: Edgar Lockwood II Age: 77 yrs Sex: Male : 1940 Arrival Date: 08/04/2018 Time: 01:53 Bed 20 Private MD: Diagnosis: Other specific joint derangements of right shoulder, not elsewhere classified Presentation: 08/04 02:04 Presenting complaint: Patient states: he fell from second rung of a ladder on Sunday bb injuring his right shoulder pain has just gotten worse since then denies LOC. Transition of care: patient was not received from another setting of care. Onset of symptoms was August 03, 2018. Risk Assessment: Do you want to hurt yourself or someone else? Patient reports no desire to harm self or others. Initial Sepsis Screen: Does the patient meet any 2 criteria? No. Patient's initial sepsis screen is negative. Does the patient have a suspected source of infection? No. Patient's initial sepsis screen is negative. Care prior to arrival: None. 02:04 Method Of Arrival: Ambulatory bb 02:04 Acuity: CLINT 4 bb Historical: - Allergies: 02:08 NKDA; bb - Home Meds: 02:08 amiodarone 400 mg Oral tab 1 tab once daily [Active]; atorvastatin 10 mg Oral tab once bb daily [Active]; aspirin 81 mg Oral chew 1 tab once daily [Active]; - PMHx: 02:08 Atrial Fib; Hyperlipidemia; bb - PSHx: 02:08 right rotator cuff; multiple spinal surgeries; hand surgery; bb - Immunization history:: Adult Immunizations up to date, Flu vaccine is up to date. - Social history:: Smoking status: Patient/guardian denies using tobacco, Patient/guardian denies using alcohol. - Ebola Screening: : Patient negative for fever greater than or equal to 101.5 degrees Fahrenheit, and additional compatible Ebola Virus Disease symptoms Patient denies exposure to infectious person Patient denies travel to an Ebola-affected area in the 21 days before illness onset. Screenin:08 Abuse screen: Denies threats or abuse. Denies injuries from another. Nutritional rr5 screening: No deficits noted. Tuberculosis screening: No symptoms or risk factors identified. Fall Risk Fall in past 12 months (25 points). Total Li Fall Scale indicates Low Risk Score (25-44 pts). Fall prevention measures have been instituted. Side Rails Up X 2 Placed close to Nursing Station Frequent Obs/Assesments occuring Family Present and informed to notify staff if they need to leave bedside As available Patient and Family Educated on Fall Prevention Program and strategies. Assessment: 02:05 General: Appears in no apparent distress. uncomfortable, Behavior is calm, cooperative, rr5 appropriate for age. Pain: Complains of pain in right shoulder Pain radiates to forearm Pain currently is 10 out of 10 on a pain scale. Quality of pain is described as throbbing, Pain began suddenly, Is intermittent, Aggravated by increased activity. Neuro: Level of Consciousness is awake, alert, obeys commands, Oriented to person, place, time, situation, Appropriate for age. Cardiovascular: Capillary refill < 3 seconds Patient's skin is warm and dry. Respiratory: Airway is patent Respiratory effort is even, unlabored, Respiratory pattern is regular, symmetrical. GI: : EENT: has hearing aid. Derm: Skin is intact, Skin temperature is warm. Musculoskeletal: Capillary refill < 3 seconds, Range of motion: limited in right shoulder and right elbow. 03:30 Reassessment: Patient appears in no apparent distress at this time. No changes from rr5 previously documented assessment. Patient is alert, oriented x 3, equal unlabored respirations, skin warm/dry/pink. awaiting for report. 04:15 Reassessment: Patient appears in no apparent distress at this time. Patient is alert, rr5 oriented x 3, equal unlabored respirations, skin warm/dry/pink. arm sling applied.discharge instruction given and explained without complaints made. Patient states feeling better. Vital Signs: 02:08 BP 136 / 61; Pulse 59; Resp 16 S; Temp 98.2(O); Pulse Ox 95% on R/A; Weight 81.65 kg bb (R); Height 5 ft. 8 in. (172.72 cm) (R); Pain 10/10; 03:00 BP 131 / 62; Pulse 63; Resp 17; Pulse Ox 98% ; rr5 04:00 BP 131 / 65; Pulse 60; Resp 17; Pulse Ox 99% ; rr5 02:08 Body Mass Index 27.37 (81.65 kg, 172.72 cm) ED Course: 01:53 Patient arrived in ED. am2 02:05 Rd Constantino, RN is Primary Nurse. rr5 02:05 Triage completed. bb 02:06 Alfie Myers MD is Attending Physician. gs 02:08 Arm band placed on Patient placed in an exam room, on a stretcher. bb 02:10 Patient has correct armband on for positive identification. Placed in gown. Bed in low rr5 position. Call light in reach. Side rails up X2. Adult w/ patient. 02:10 Pulse ox on. NIBP on. Elevated right arm. rr5 03:09 X-ray completed. Portable x-ray completed in exam room. Patient tolerated procedure sg4 well. 03:10 Shoulder Right (2 View) XRAY In Process Unspecified. EDMS 03:52 Marcos Mccallum MD is Referral Physician. gs 04:10 Clavicle/Shoulder strap applied on right clavicle/shoulder. rr5 04:16 No provider procedures requiring assistance completed. Patient did not have IV access rr5 during this emergency room visit. Administered Medications: No medications were administered Outcome: 03:52 Discharge ordered by . gs 04:16 Discharged to home ambulatory, with family. rr5 04:16 Condition: stable 04:16 Discharge instructions given to patient, family, Instructed on discharge instructions, follow up and referral plans. medication usage, Demonstrated understanding of instructions, follow-up care, medications, Prescriptions given X 1. 04:19 Patient left the ED. rr5 Signatures: Dispatcher [employer] EDAL Chloe Meza RN RN bb Moreno, Amanda am2 Alfie Myers MD MD gs Garcia, Susana sg4 Rd Constantino, RN RN rr5
[2018-08-04 04:25] VITALS: TEMP 98.2
[2018-08-04 04:27] VITALS: BP 131/65; O2SAT 99
--- NOTE | 2018-08-04 11:02 | RAD REPORT ---
EXAM DESCRIPTION: RAD - Shoulder Right 2 View - 08/04/2018 3:09 am CLINICAL HISTORY: PAIN History of trauma/fall COMPARISON: Chest Single View dated 07/03/2018 FINDINGS: Glenohumeral and AC joint degenerative changes are present. Mild widening of the AC joint is seen, chronic in appearance. No acute fracture or dislocation evident. No aggressive bone lesion.
== END 2018-08-04 04:19 | disposition home or self-care (01) ==
LOC: ER 01:52
DX: M24.811 Other specific joint derangements of right shoulder, not elsewhere classified (principal); E78.5 Hyperlipidemia, unspecified; I48.91 Unspecified atrial fibrillation; Z79.82 Long term (current) use of aspirin; Z79.899 Other long term (current) drug therapy
CPT/HCPCS: 99284

== ENCOUNTER 2019-10-30 17:03 | Inpatient (IN) | payer BC, OTHER ==
--- OUTSIDE RECORDS SUMMARY | 2019-10-30 17:05 | XMS REPORT ---
:[address] [facility] t Address [address] [place] [address] Care Team Providers Name Role Phone Unavailable Unavailable Unavailable Payers Payer Name Policy Type Policy Number Effective Date Expiration D ate Problems This patient has no known problems. Allergies, Adverse Reactions, Alerts Allergy Allergy Status Severity Reaction(s) Onset Inactive Treating C omments Name Type Date Date Clinician No Known DA Active U 2017-10 Allergies 17 00:00:0 0 Medications This patient has no known medications. Results Test Description Test Time Test Comments Text Results Atomic Results Result Comments - XR FLUOROSCOPY 0-60 MIN 2019-04-11 12:24:00 Name: DONNA ZAPATA [facility] : 1940 Age/S: 78 / M [id number] Unit #: [id number] L oc: [place] [address] Phys: Joe Quinn MD Acct: [id number] Dis Date: Status: REG [facility] PHONE #: [phone] Ex am Date: 04/11/2019 0900 FAX #: Reason: LASER LITHOTRIPSY EXAMS : CPT: [id number] XR FLUOROSCOPY 0-60 MIN 42058 Fluoro Time: 29 SEC DAP (Gy m2): Air Kerma (mGy): Examination: Operative fluo roscopy Location code: S17 Comparison: None Discussion: Clinical history is remarkab le for laser lithotripsy. 29.1 seco nds fluoroscopic time is utili zed. There is retrograde injectio n of the left ureter and collecting system with subse quent placement of a ureteri c stent. Mild left hydronephro sis is present. Impression: Please r efer to the operative report. Electronically Laurel d by Sammie Winter on 04/11/2019 at 1224 Reported and signed by: Abhilash Winter M.D. CC: Carlos Zavaleta Jr, MD; Joe Quinn MD PAGE 1 Signed Report Name: DONNA RACHEL II [facility] : Age/S: 78 / M [address] Unit #: [id number] Loc: [place] [address] Phys: Joe Quinn MD Acct: [id number] Dis Da te: Status: REG [facility] PHONE #: [phone] Exam Date: 04/11/2019 0900 FAX #: [place] son: LASER LITHOTRIPSY EXAMS: CPT: [id number] XR FLUOROSCOPY 0-60 MIN [id number] Fluoro Time: 29 SEC DAP (Gy m2): Air Kerma (mGy): <Continued> Technologist: Macario Weston, RT(R) Trnscb Date/Time: 04/11/2019 (1224) [email or web address] Orig Print D/ T: S: 04/11/2019 (9464) [place] 2 Signed R eport - XR FLUOROSCOPY 0-60 MIN 2019-03-21 16:33:00 Name: DNONA ZAPATA [facility] : 1940 Age/S: 78 / M [address] Unit #: [id number] L oc: [place] [address] Phys: Joe Quinn MD Acct: [id number] Dis Date: Status: REG [facility] PHONE #: [phone] Ex am Date: 03/21/2019 1515 FAX #: Reason: CYSTOSCOPY RETRO EDUARDA LOGRAM LASER LITHOTRIPSY EXAM S: CPT: [id number] XR FLUOROSCOPY 0-60 MIN 20820 Fluoro Time: 43 SEC DAP (Gy m2): Air Kerma (mGy): Location: C3 Study: Intraoperative fluoroscopic images. Comparison: No ne FINDINGS/ IMPRESSION: Intraoperative fluoroscopic images of retrograde pyelogram was performed. Filling defects are seen within the right proxim al ureter and right belem al pelvis. Please note that I was not present for this pro cedure. Please refer to the operati ve notes for further details. Fluoroscopy time: 43.3 secon ds. Total cumulative dose: 9.89 mGy. Electronically Sign ed by Sammie Goins on 03/21/20 19 at 1633 Reported and signed by: Leon Goins M.D. CC: Carlos Zavaleta Jr, MD ; Joe Quinn MD PAGE 1 Signed Report Name: DONNA RACHEL [facility] : 1 Age/S: 78 / M [address] Unit #: [id number] Loc: [place] [address] Phys: Joe Quinn MD Acct: [id number] Dis Da te: Status: REG [facility] PHONE #: [phone] Exam Date: 03/21/2019 3772 FAX #: [place] son: CYSTOSCOPY RETRO PYELOGRAM L ASER LITHOTRIPSY EXAMS: CPT: [id number] XR FLUOROSCOPY 0-60 MIN 37803 Fluoro Time: 43 SEC DAP (Gy m2): Air Kerma (mGy): <Continued> Technologist: Macario Weston RT(R) Trnscb Date/Time: 03/21/2019 (1633) [email or web address] Orig Print D/ T: S: 03/21/2019 (6936) BELLA [place] 2 Signed R eport
--- NOTE | 2019-10-30 18:09 | RAD REPORT ---
EXAM DESCRIPTION: RAD - Hand Left 2 View - 10/30/2019 6:03 pm CLINICAL HISTORY: SWELLING COMPARISON: No comparisons FINDINGS: Diffuse osteopenia is seen. Mild degenerative changes present involving the radiocarpal ana luisa int. Moderate DIP and PIP joint arthritic changes. No acute fracture or dislocation.
--- NOTE | 2019-10-30 18:10 | RAD REPORT ---
EXAM DESCRIPTION: RAD - Chest Single View - 10/30/2019 6:03 pm CLINICAL HISTORY: ABDOMINAL DISTENTION Chest pain. COMPARISON: Chest Pa And Lat (2 Views) dated 01/09/2019; Chest Single View dated 07/03/2018; CHEST SING LE VIEW dated 05/20/2013; CHEST PA AND LAT 2 VIEW dated 10/27/2011 FINDINGS: Portable technique limits examination quality. The lungs are grossly clear. The heart is normal in size. Tortuous thoracic aorta. IMPRESSION: No acute intrathoracic process suspected.
[2019-10-30] MEDS ORDERED: TETANUS & DIPHTHERIA TOX,ADULT 0.5 ML VIAL ONE (18:27)
[2019-10-30] MEDS ORDERED: SIMETHICONE 80 MG TAB ONE (18:27)
[2019-10-30] MEDS ORDERED: GABAPENTIN 300 MG CAP ONE (18:30)
[2019-10-30 18:31] LABS: Protime INR 1.02
[2019-10-30 18:33] LABS: Absolute Lymphocytes (CBC) 0.8 K/uL (0.7-4.9); Basophils % 0.7 % (0-1.3); Hematocrit 44.1 % (39.6-49.0); Lymphocytes % 6.8 % (15.3-44.8); MPV 8.1 fL (7.6-11.3); RBC Red Blood Cell Count 4.41 M/uL (4.33-5.43)
[2019-10-30 18:51] LABS: ALT/SGPT 21 U/L (12-78); AST/SGOT 19 U/L (15-37); Albumin 3.3 g/dL (3.4-5.0); Alkaline Phosphatase 95 U/L (45-117); BUN Blood Urea Nitrogen 15 mg/dL (7-18); Bicarbonate 25 mmol/L (21-32); Bilirubin Direct 0.1 mg/dL (0-0.2); Bilirubin Total 0.5 mg/dL (0.2-1.0); Glucose Level 115 mg/dL (74-106); Magnesium 1.9 mg/dL (1.8-2.4); NT PRO-BNP 446 pg/mL (<450); Potassium 3.8 mmol/L (3.5-5.1); Protein, Total 7.3 g/dL (6.4-8.2); Sodium Level 140 mmol/L (136-145); Troponin (Emerg Dept Use Only) < 0.02 ng/mL (0.0-0.045)
--- NOTE | 2019-10-30 19:53 | RAD REPORT ---
EXAM DESCRIPTION: CT - Abdomen W Contrast CLINICAL HISTORY: ABD PAIN Abdominal pain COMPARISON: No comparisons TECHNIQUE All CT scans are performed using dose optimization technique as appropriate and may includ e automated exposure control or mA/KV adjustment according to patient size. FINDINGS: The lung bases are mildly emphysematous. The liver contains several benign cysts. No aggressive liver lesion or biliary dilatation. The spleen , pancreas, adrenal glands are normal. Kidneys demonstrate no hydronephrosis. Small benign renal cyst s are present. Punctate caliceal stones also present bilaterally. The gallbladder is distended. No free fluid, bowel obstruction or free air. Moderate stool is retained in the colon. No significant adenopathy in the abdomen. Aortic atherosclerosis. Prominent degenerative changes lower lumbar spine. IMPRESSION: Punctate bilateral nephrolithiasis without hydronephrosis. Gallbladder distension.
[2019-10-30] MEDS ORDERED: PIPER/TAZO/NS 3.375gm 3.375 GM/100 ML BAG ONE (20:20)
[2019-10-30 22:35] LABS: Blood Morphology Comment NOT SEEN (NOT SEEN); Platelet Estimate ADEQ; Urine White Blood Cell Casts OK
--- NOTE | 2019-10-30 22:38 | P.HP ---
Certification for Inpatient Patient admitted to: Observation With expected LOS: <2 Midnights Practitioner: I am a practitioner with admitting privileges, knowledge of patient current condition, hospital course, and medical plan of care. Services: Services provided to patient in accordance with Admission requirements found in Title 42 Section 412.3 of the Code of Federal Regulations Patient History Date of Service: 10/30/19 Reason for admission: Abdominal pain History of Present Illness: 78-year-old gentleman with a history of paroxysmal atrial fibrillation, history of intermittent abdominal pain present to the ED with a complaint of abdominal pain of onset 3 days ago. Patient described epigastric pain, maximum intensity 8/10, nonradiating, no known relieving or aggravating factors, associated nausea and dry heaving, no diarrhea or constipation. Patient also denied fever. Workup in the ED including CT abdomen and pelvis reported distended gallbladder. Noted patient was hospitalized in July 2018, for complaint of abdominal pain and chest pain, he gave a diagnosis of chronic appendicitis, was evaluated by Surgery and patient determined not to have acute abdomen and no need for surgery. He has mild leukocytosis. Ultrasound is not available tonight to confirm cholecystitis. Patient is placed under observation for further management. Allergies No Known Allergies Allergy (Verified 07/29/14 09:17) Home Medications: Amiodarone HCl [Cordarone*] 100 mg PO DAILY 07/04/18 - Past Medical/Surgical History Diabetic: No -: Hyperlipedemia -: Paroxistic A.fib -: Rotator cuff sx rt -: Lumbar 2&3 fusion -: Back Sx - Family History Mother -: Cancer Notes: metastatic Father Notes: none - Social History Alcohol use: No CD- Drugs: No Caffeine use: Yes Review of Systems Other: Except as documented, all other systems reviewed and negative. Physical Examination - Physical Exam General: Alert, In no apparent distress, Oriented x3 HEENT: Atraumatic, Normocephalic, PERRLA, Sclerae nonicteric Neck: Supple, JVD not distended Respiratory: Clear to auscultation bilaterally, Normal air movement Cardiovascular: No edema, Regular rate/rhythm, Normal S1 S2 Capillary refill: <2 Seconds Gastrointestinal: Normal bowel sounds, Non-distended, Tenderness (Mild epigastric tenderness) Musculoskeletal: No swelling, No erythema Integumentary: No rashes Neurological: Normal speech, Normal strength at 5/5 x4 extr, Cranial nerves 3-12 intact - Studies Laboratory Data (last 24 hrs) 10/30/19 17:54: PT 12.0, INR 1.02 10/30/19 17:54: WBC 11.8 H, Hgb 14.8, Hct 44.1, Plt Count 321 10/30/19 17:54: Sodium 140, Potassium 3.8, BUN 15, Creatinine 0.98, Glucose 115 H, Magnesium 1.9, Total Bilirubin 0.5, AST 19, ALT 21, Alkaline Phosphatase 95 Assessment and Plan - Problems (Diagnosis) (1) Abdominal pain Current Visit: Yes Status: Acute (2) Paroxysmal A-fib Current Visit: No Status: Acute - Plan Place under observation. Supportive measures with IV fluids, IV opioids for pain, antiemetics as needed. IV protonix. Right upper quadrant sonogram Consult general surgery. Continue home dose Amiodarone. No anticoagulation for now. - Advance Directives Does patient have a Living Will: No Does patient have a Durable POA for Healthcare: Yes
[2019-10-31 00:43] VITALS: BMI 24.6
--- NOTE | 2019-10-31 00:43 | ER ---
Nurse's Notes [facility] Name: Edgar Lockwood II Age: 78 yrs Sex: Male : 1940 Arrival Date: 10/30/2019 Time: 17:08 Bed 15 Private MD: Diagnosis: Cholecystitis, unspecified;Upper abdominal pain, unspecified Presentation: 10/29 17:22 Chief complaint: Patient states: Epigastric abdominal pain with N/V began at 1100 ll1 today. No fever. Coronavirus screen: Proceed with normal triage. Patient denies a cough. Patient denies shortness of breath or difficulty breathing. Patient denies measured and/or subjective temperature greater than 100.4F prior to today's visit. Patient denies travel on a cruise ship or to a country the [facility] currently lists as an affected area. Patient denies contact with known and/or suspected case of COVID-19. Ebola Screen: Patient denies travel to an Ebola-affected area in the 21 days before illness onset. Initial Sepsis Screen: Does the patient meet any 2 criteria? No. Patient's initial sepsis screen is negative. Does the patient have a suspected source of infection? No. Patient's initial sepsis screen is negative. Risk Assessment: Do you want to hurt yourself or someone else? Patient reports no desire to harm self or others. Onset of symptoms was October 30, 2019. 17:22 Method Of Arrival: Ambulatory ll1 17:22 Acuity: CLINT 3 ll1 Triage Assessment: 17:15 General: Appears in no apparent distress. uncomfortable, Behavior is calm, cooperative, vc appropriate for age. Pain: Complains of pain in epigastric area. GI: Reports nausea, vomiting. Historical: - Allergies: 17:24 NKDA; ll1 - PMHx: 17:24 Hyperlipidemia; Atrial Fib; ll1 - PSHx: 17:24 multiple spinal surgeries; hand surgery; ll1 - Immunization history:: Adult Immunizations up to date. - Social history:: Smoking status: Patient reports the use of cigarette tobacco products, denies chronic smoking, but will smoke occasionally, Patient/guardian denies using alcohol, street drugs. Screenin:30 Abuse screen: Denies threats or abuse. Nutritional screening: No deficits noted. vc Tuberculosis screening: No symptoms or risk factors identified. Fall Risk None identified. Assessment: 17:30 GI: Bowel sounds present X 4 quads. Abd is soft and non tender X 4 quads. vc 17:30 General: Appears in no apparent distress. uncomfortable, ill, Behavior is calm, vc cooperative, appropriate for age. Pain: Complains of pain in epigastric area. Neuro: Level of Consciousness is awake, alert, obeys commands, Oriented to person, place, time, situation. Cardiovascular: Capillary refill < 3 seconds Patient's skin is warm and dry. Respiratory: Airway is patent Respiratory effort is even, unlabored, Respiratory pattern is regular, symmetrical. : No deficits noted. Derm: No signs and/or symptoms reported regarding the dermatologic system. 18:30 Reassessment: Patient appears in no apparent distress at this time. Patient and/or vc family updated on plan of care and expected duration. Pain level reassessed. Patient is alert, oriented x 3, equal unlabored respirations, skin warm/dry/pink. 19:52 Reassessment: pt stated she would like an update on results, updated awaiting CT sg scan at this time, call back requested at [phone]. pt requesting a nguyễn test be performed on her spouse the pt, informed that there is specific screening done in order to test for COVID 19, pt stated understanding, requesting that the ERP call her son who is an ER physician in the [facility] with results at [phone]. 20:30 Reassessment: Patient appears in no apparent distress at this time. Patient and/or vc family updated on plan of care and expected duration. Pain level reassessed. Patient is alert, oriented x 3, equal unlabored respirations, skin warm/dry/pink. Patient states symptoms have not improved. 21:02 Reassessment: Patient appears in no apparent distress at this time. pt has called sg for an update, updated on new results, pt stated " he told me his gall bladder is distended, what does that mean.?". 21:30 Reassessment: Patient appears in no apparent distress at this time. Patient and/or vc family updated on plan of care and expected duration. Pain level reassessed. Patient is alert, oriented x 3, equal unlabored respirations, skin warm/dry/pink. Patient states symptoms have improved. 23:30 Reassessment: Patient appears in no apparent distress at this time. Patient and/or vc family updated on plan of care and expected duration. Pain level reassessed. Patient is alert, oriented x 3, equal unlabored respirations, skin warm/dry/pink. Patient states feeling better. 05 00:30 Reassessment: Patient appears in no apparent distress at this time. Patient and/or vc family updated on plan of care and expected duration. Pain level reassessed. Patient is alert, oriented x 3, equal unlabored respirations, skin warm/dry/pink. Patient states feeling better. Patient states symptoms have improved. Vital Signs: 10/29 17:22 BP 154 / 68; Pulse 60; Resp 17; Temp 98.4; Pulse Ox 96% ; Pain 8/10; ll1 18:00 BP 133 / 62; Pulse 50; Resp 17; Pulse Ox 97% on R/A; vc 19:00 BP 142 / 61; Pulse 50; Resp 14; Pulse Ox 96% on R/A; vc 20:00 BP 134 / 63; Pulse 49; Resp 14; Pulse Ox 96% on R/A; vc ED Course: 17:08 Patient arrived in ED. mr 17:13 Paloma Toney FNP-C is [facility]. snw 17:13 Fernandez Berumen MD is Attending Physician. snw 17:24 Triage completed. ll1 17:25 Arm band placed on Patient placed in an exam room, on a stretcher. ll1 17:37 Laurie Barnes, RN is Primary Nurse. vc 17:58 Placed in gown. Bed in low position. Call light in reach. Side rails up X 1. Side rails jp3 up X2. Warm blanket given. Verbal reassurance given. Pulse ox on. NIBP on. 17:58 Initial lab(s) drawn, by me, sent to lab. X-ray(s) taken. Inserted saline lock: 20 jp3 gauge in right forearm, using aseptic technique. Blood collected. Patient maintains SpO2 saturation greater than 95% on room air. 17:59 survey methodologist on. jp3 17:59 EKG done, by ED staff, reviewed by Paloma NAVAS. jp3 18:04 XRAY Chest (1 view) In Process Unspecified. EDMS 18:04 Hand Left 2 View XRAY In Process Unspecified. EDMS 19:43 CT Abdomen - IV Contrast Only In Process Unspecified. EDMS 21:02 Delfino Landeros is Hospitalizing Provider. [facility] 10/30 00:40 No provider procedures requiring assistance completed. Patient admitted, IV remains in vc place. Administered Medications: 10/29 18:30 Drug: Tetanus-Diphtheria Toxoid Adult 0.5 ml {Consulting Nurse: Pure Klimaschutz. Exp: 08/15/2021. Lot #: [id number]. } Route: IM; Site: right deltoid; 21:27 Follow up: Response: No adverse reaction vc 18:31 Drug: Simethicone 240 mg Route: PO; hb 21:27 Follow up: Response: No adverse reaction vc 18:31 Drug: Gabapentin 300 mg Route: PO; hb 21:28 Follow up: Response: No adverse reaction vc 20:40 Drug: Zosyn 3.375 grams Route: IVPB; Infused Over: 60 mins; Site: right antecubital; vc 21:39 Follow up: IV Status: Completed infusion; IV Intake: 100ml vc Intake: 21:39 IV: 100ml; Total: 100ml. vc Outcome: 21:03 Decision to Hospitalize by Provider. critical access hospital 10/30 00:40 Admitted to Med/surg accompanied by nurse, via wheelchair, room 215, with chart, Report vc called to DAVE Petersen Condition: good 00:40 Instructed on the need for admit. vc 00:41 Patient left the ED. sg Signatures: Dispatcher [employer] EDMS Marcos Bishop RN RN sg Paloma Toney, LOADING MACHINE OPERATOR-C LOADING MACHINE OPERATOR-Csnw Angie Richardson mr Kathy Hi RN RN Nicolas Garcia jp3 Laurie Barnes RN RN Victor M Osborn RN RN ll1 Corrections: (The following items were deleted from the chart) 10/29 17:25 17:22 Chief complaint: Patient states: Epigastric abdominal pain with N/V began at 1100 ll1 today. No fever. ll1
--- NOTE | 2019-10-31 00:44 | EDPHYS ---
Physician Documentation [facility] Name: Edgar Lockwood II Age: 78 yrs Sex: Male : 1940 Arrival Date: 10/30/2019 Time: 17:08 Bed 15 Private MD: ED Physician Fernandez Berumen HPI: 10/29 18:23 This 78 yrs old Male presents to ER via Ambulatory with complaints of snw Abdominal Pain, Vomiting. 18:23 The patient presents with abdominal pain in the epigastric area. Onset: The snw symptoms/episode began/occurred yesterday. The symptoms radiate to both arms. Associated signs and symptoms: none. The symptoms are described as burning. Severity of pain: At its worst the pain was moderate. The patient has experienced similar episodes in the past, usually relieved by Tums. The patient has not recently seen a physician. Takes Amiodarone. Historical: - Allergies: 17:24 NKDA; ll1 - PMHx: 17:24 Hyperlipidemia; Atrial Fib; ll1 - PSHx: 17:24 multiple spinal surgeries; hand surgery; ll1 - Immunization history:: Adult Immunizations up to date. - Social history:: Smoking status: Patient reports the use of cigarette tobacco products, denies chronic smoking, but will smoke occasionally, Patient/guardian denies using alcohol, street drugs. ROS: 18:21 Constitutional: Negative for fever, chills, and weight loss, Eyes: Negative for injury, snw pain, redness, and discharge, ENT: Negative for injury, pain, and discharge, Neck: Negative for injury, pain, and swelling, Cardiovascular: Negative for chest pain, palpitations, and edema, Respiratory: Negative for shortness of breath, cough, wheezing, and pleuritic chest pain. 18:21 Back: Negative for injury and pain, : Negative for injury, bleeding, discharge, and swelling, Skin: Negative for injury, rash, and discoloration, Neuro: Negative for headache, weakness, numbness, tingling, and seizure, Psych: Negative for depression, anxiety, suicide ideation, homicidal ideation, and hallucinations. 18:21 Abdomen/GI: Positive for abdominal pain, of the epigastric area. 18:21 MS/extremity: Positive for heavy, burning type pain bilateral arms. Pt states he stabbed his left thumb with a knife a few days ago and it has been sore and a bit swollen since that time. Exam: 18:21 Constitutional: This is a well developed, well nourished patient who is awake, alert, snw and in no acute distress. Head/Face: Normocephalic, atraumatic. Eyes: Pupils equal round and reactive to light, extra-ocular motions intact. Lids and lashes normal. Conjunctiva and sclera are non-icteric and not injected. Cornea within normal limits. Periorbital areas with no swelling, redness, or edema. ENT: Nares patent. No nasal discharge, no septal abnormalities noted. Tympanic membranes are normal and external auditory canals are clear. Oropharynx with no redness, swelling, or masses, exudates, or evidence of obstruction, uvula midline. Mucous membranes moist. Neck: Trachea midline, no thyromegaly or masses palpated, and no cervical lymphadenopathy. Supple, full range of motion without nuchal rigidity, or vertebral point tenderness. No Meningismus. Chest/axilla: Normal chest wall appearance and motion. Nontender with no deformity. No lesions are appreciated. Cardiovascular: Regular rate and rhythm with a normal S1 and S2. No gallops, murmurs, or rubs. Normal PMI, no JVD. No pulse deficits. Respiratory: Lungs have equal breath sounds bilaterally, clear to auscultation and percussion. No rales, rhonchi or wheezes noted. No increased work of breathing, no retractions or nasal flaring. Back: No spinal tenderness. No costovertebral tenderness. Full range of motion. Skin: Warm, dry with normal turgor. Normal color with no rashes, no lesions, and no evidence of cellulitis. MS/ Extremity: Pulses equal, no cyanosis. Neurovascular intact. Full, normal range of motion. left thumb and wrist tender and mildly edematous Neuro: Awake and alert, GCS 15, oriented to person, place, time, and situation. Cranial nerves II-XII grossly intact. Motor strength 5/5 in all extremities. Sensory grossly intact. Cerebellar exam normal. Normal gait. Psych: Awake, alert, with orientation to person, place and time. Behavior, mood, and affect are within normal limits. 18:21 Abdomen/GI: Inspection: abdomen appears normal, Bowel sounds: normal, in all quadrants, Palpation: moderate abdominal tenderness, in the epigastric area. Vital Signs: 17:22 BP 154 / 68; Pulse 60; Resp 17; Temp 98.4; Pulse Ox 96% ; Pain 8/10; ll1 18:00 BP 133 / 62; Pulse 50; Resp 17; Pulse Ox 97% on R/A; vc 19:00 BP 142 / 61; Pulse 50; Resp 14; Pulse Ox 96% on R/A; vc 20:00 BP 134 / 63; Pulse 49; Resp 14; Pulse Ox 96% on R/A; vc MDM: 17:14 Patient medically screened. rober 20:59 Data reviewed: vital signs, nurses notes. Data interpreted: Pulse oximetry: on room air snw is 96 %. Interpretation: acceptable. Counseling: I had a detailed discussion with the patient and/or guardian regarding: the historical points, exam findings, and any diagnostic results supporting the discharge/admit diagnosis, the presence of at least one elevated blood pressure reading (>120/80) during this emergency department visit, lab results, radiology results, the need for further work-up and treatment in the hospital. Physician consultation: Delfino Landeros was called at 20:59, regarding admission, to the telemetry unit. and will see patient in ED. ED course: Spoke with Dr. Lockwood, pt's Son. Plan of care discussed.. 10/29 17:37 Order name: Basic Metabolic Panel; Complete Time: 18:56 snw 10/29 17:37 Order name: CBC with Diff; Complete Time: 22:37 snw 10/29 17:37 Order name: LFT's; Complete Time: 18:56 snw 10/29 17:37 Order name: Magnesium; Complete Time: 18:56 snw 10/29 17:37 Order name: NT PRO-BNP; Complete Time: 18:56 snw 10/29 17:37 Order name: PT-INR; Complete Time: 18:49 snw 10/29 17:37 Order name: Troponin (emerg Dept Use Only); Complete Time: 18:56 snw 10/29 17:37 Order name: XRAY Chest (1 view); Complete Time: 18:14 snw 10/29 17:38 Order name: Hand Left 2 View XRAY; Complete Time: 18:14 snw 10/29 18:57 Order name: CT Abdomen - IV Contrast Only; Complete Time: 19:58 snw 10/29 22:36 Order name: CBC Smear Scan; Complete Time: 22:37 EDMS 10/29 17:37 Order name: EKG; Complete Time: 17:38 snw 10/29 17:37 Order name: Cardiac monitoring; Complete Time: 17:59 snw 10/29 17:37 Order name: EKG - Nurse/Tech; Complete Time: 17:59 snw 10/29 17:37 Order name: IV Saline Lock; Complete Time: 17:59 snw 10/29 17:37 Order name: Labs collected and sent; Complete Time: 17:59 snw 10/29 17:37 Order name: O2 Per Protocol; Complete Time: 17:59 snw 10/29 17:37 Order name: O2 Sat Monitoring; Complete Time: 17:59 snw 10/29 20:58 Order name: Diet Clear Liquid; Complete Time: 20:59 snw Administered Medications: 18:30 Drug: Tetanus-Diphtheria Toxoid Adult 0.5 ml {Admitting Representative: Seawind. Exp: 08/15/2021. Lot #: [id number]. } Route: IM; Site: right deltoid; 21:27 Follow up: Response: No adverse reaction vc 18:31 Drug: Simethicone 240 mg Route: PO; hb 21:27 Follow up: Response: No adverse reaction vc 18:31 Drug: Gabapentin 300 mg Route: PO; hb 21:28 Follow up: Response: No adverse reaction vc 20:40 Drug: Zosyn 3.375 grams Route: IVPB; Infused Over: 60 mins; Site: right antecubital; vc 21:39 Follow up: IV Status: Completed infusion; IV Intake: 100ml vc Disposition: 10/30 11:25 Co-signature as Attending Physician, Fernandez Berumen MD I agree with the assessment and rober plan of care. Disposition: 10/30/19 21:03 Hospitalization ordered by Delfino Landeros for Inpatient Admission. Preliminary diagnosis are Cholecystitis, unspecified, Upper abdominal pain, unspecified. - Bed requested for Telemetry/MedSurg (Inpatient). - Status is Inpatient Admission. sg - Condition is Stable. - Problem is new. - Symptoms are unchanged. Signatures: Dispatcher [employer] Marcos Mata RN RN sg Anderson, Corey, MD MD rober Feng, Paloma, INSURANCE RISK ANALYST-C INSURANCE RISK ANALYST-Csnw Delia Maurer, RN RN cg Kathy Hi, Laurie Cooper RN, RN RN vc Lewis, Lynsay, RN RN ll1 Corrections: (The following items were deleted from the chart) 10/29 21:01 18:21 Constitutional: This is a well developed, well nourished patient who is awake, snw alert, and in no acute distress. Head/Face: Normocephalic, atraumatic. Eyes: Pupils equal round and reactive to light, extra-ocular motions intact. Lids and lashes normal. Conjunctiva and sclera are non-icteric and not injected. Cornea within normal limits. Periorbital areas with no swelling, redness, or edema. ENT: Nares patent. No nasal discharge, no septal abnormalities noted. Tympanic membranes are normal and external auditory canals are clear. Oropharynx with no redness, swelling, or masses, exudates, or evidence of obstruction, uvula midline. Mucous membranes moist. Neck: Trachea midline, no thyromegaly or masses palpated, and no cervical lymphadenopathy. Supple, full range of motion without nuchal rigidity, or vertebral point tenderness. No Meningismus. Chest/axilla: Normal chest wall appearance and motion. Nontender with no deformity. No lesions are appreciated. Cardiovascular: Regular rate and rhythm with a normal S1 and S2. No gallops, murmurs, or rubs. Normal PMI, no JVD. No pulse deficits. Respiratory: Lungs have equal breath sounds bilaterally, clear to auscultation and percussion. No rales, rhonchi or wheezes noted. No increased work of breathing, no retractions or nasal flaring. Back: No spinal tenderness. No costovertebral tenderness. Full range of motion. Skin: Warm, dry with normal turgor. Normal color with no rashes, no lesions, and no evidence of cellulitis. MS/ Extremity: Pulses equal, no cyanosis. Neurovascular intact. Full, normal range of motion. Neuro: Awake and alert, GCS 15, oriented to person, place, time, and situation. Cranial nerves II-XII grossly intact. Motor strength 5/5 in all extremities. Sensory grossly intact. Cerebellar exam normal. Normal gait. Psych: Awake, alert, with orientation to person, place and time. Behavior, mood, and affect are within normal limits. snw 21:02 18:21 MS/extremity: Positive for heavy, burning type pain bilateral arms, snw snw 23:10 21:03 Hospitalization Ordered by Delfino Landeros for Inpatient Admission. Preliminary cg diagnosis is Cholecystitis, unspecified; Upper abdominal pain, unspecified. Bed requested for Telemetry/MedSurg (Inpatient). Status is Inpatient Admission. Condition is Stable. Problem is new. Symptoms are unchanged. snw 10/30 00:41 10/29 23:10 10/30/2019 21:03 Hospitalization Ordered by Delfino Landeros for Inpatient sg Admission. Preliminary diagnosis is Cholecystitis, unspecified; Upper abdominal pain, unspecified. Bed requested for Telemetry/MedSurg (Inpatient). Status is Inpatient Admission. Condition is Stable. Problem is new. Symptoms are unchanged. cg
[2019-10-31] MEDS ORDERED: ONDANSETRON 4 MG/2 ML VIAL IV PRN (01:05)
[2019-10-31] MEDS ORDERED: MORPHINE 2 MG/ML SYR IV PRN (01:05)
[2019-10-31] MEDS ORDERED: SODIUM CHLORIDE 0.9% 10ML INJ IV PRN (01:05)
[2019-10-31] MEDS: NA CHLORIDE 0.9% 1,000 ML IV SCH ×3 (01:38→21:05)
[2019-10-31 05:17] LABS: Absolute Lymphocytes (CBC) 1.2 K/uL (0.7-4.9); Basophils % 0.9 % (0-1.3); Hematocrit 41.9 % (39.6-49.0); Lymphocytes % 10.5 % (15.3-44.8); MPV 7.7 fL (7.6-11.3); RBC Red Blood Cell Count 4.22 M/uL (4.33-5.43)
[2019-10-31 05:19] LABS: Protime INR 1.03
[2019-10-31 05:39] LABS: Albumin 2.7 g/dL (3.4-5.0); Bilirubin Total 0.5 mg/dL (0.2-1.0); Magnesium 1.8 mg/dL (1.8-2.4); Phosphorus 3.4 mg/dL (2.5-4.9); Potassium 3.8 mmol/L (3.5-5.1); Protein, Total 6.4 g/dL (6.4-8.2)
[2019-10-31 06:49] LABS: Urine Appearance CLEAR; Urine Bilirubin NEGATIVE (NEG); Urine Blood NEGATIVE (NEG); Urine Color YELLOW; Urine Glucose NEGATIVE (NEG); Urine Protein NEGATIVE (NEG); Urine Specific Gravity >=1.030 (1.005-1.030); Urine Urobilinogen 0.2 mg/dL (0.2-1.0)
[2019-10-31 06:54] LABS: Urine Microscopic Reflex NO UMIC
[2019-10-31] MEDS ORDERED: MAGNESIUM SULFATE 1 gm IVPB 1 GM/100 ML BAG IV ONE (08:00)
[2019-10-31] MEDS ORDERED: POTASSIUM CL SA 10 MEQ TAB PO ONE (09:00)
--- NOTE | 2019-10-31 09:49 | EKG ---
Test Date: 2019-10-30 Test Time: 18:07:30 Optical Lathe Operator: KAYLA MEASUREMENT RESULTS: Intervals: Rate: 50 NM: 192 QRSD: 92 QT: 510 QTc: 464 [place]: P: 67 NM: 192 QRS: 1 T: 63 INTERPRETIVE STATEMENTS: Sinus bradycardia Septal infarct, age undetermined Abnormal ECG Compared to ECG 07/03/2018 17:04:22 Sinus rhythm no longer present T-wave abnormality no longer present Possible ischemia no longer present Myocardial infarct finding still present Electronically Signed On 10-31-19 09:48:37 CDT by Anoop Guerrero
[2019-10-31] MEDS: PANTOPRAZOLE 40 MG INJ IVP SCH (10:48)
[2019-10-31] MEDS: AMIODARONE HCL 200 MG TAB PO SCH (10:48)
--- NOTE | 2019-10-31 15:26 | RAD REPORT ---
EXAM DESCRIPTION: US - Abdomen Exam Limited - 10/31/2019 3:18 pm CLINICAL HISTORY: Distended gall bladder COMPARISON: Abdomen W Contrast dated 10/30/2019 FINDINGS: The gallbladder demonstrates distention. Gallbladder wall appears mildly thickened with mi ld pericholecystic fluid seen. No gallstones are evident. The common bile duct is normal measuring 4 mm. The liver demonstrates fatty infiltration. IMPRESSION: The gallbladder appears distended with mild wall thickening and pericholecystic fluid, h owever without evidence of gallstones. HIDA scan followup may be useful for further evaluation.
[2019-10-31] MEDS: PIPER/TAZO/NS 3.375gm 3.375 GM/100 ML BAG IVPB SCH (17:38)
--- NOTE | 2019-10-31 21:15 | PN ---
Date of Progress Note: 10/31/2019 Subjective: Patient seen and examined. Chart reviewed and case discussed with RN and patient's son, Dr. Lockwood, as well as Dr. Abraham and Dr. Smith, the delivery truck driver heavy. From Cardiology standpoint, marly malhotra is cleared for surgery. He is [id number] risk. Patient denies any abdominal pain. Medications: Reviewed. Code Status: Full. Physical Examination: Vital Signs: Temperature 98, heart rate 108, blood pressure 110/58, respirations 17, O2 of 93% on ro om air. General: Awake, alert, and oriented x3. Elderly male, does not appear to be in any acute distress. CV: S1, S2. Peripheral pulses present. Respiratory: Moving air well bilaterally. No wheezing or stridor. Gastrointestinal: Abdomen is soft, nontender, nondistended. Positive bowel sounds. Extremities: No clubbing, cyanosis, or edema. Neurologic: Nonfocal. Laboratory Data: Sodium 142, potassium 3.8, chloride 111, CO2 of 25, BUN 18, creatinine 0.97, calciu m 8.2, phosphorus 3.4, magnesium 1.8, AST 15, ALT 17, alkaline phosphatase 77. WBC 11.5, H and H 14 and 41.9, platelets 288, neutrophils 81%. Abdominal ultrasound shows gallbladder appears distended w ith mild wall thickening and pericholecystic fluid, however, without evidence of gallstones. HIDA sc an follow up may be useful for further evaluation. Assessment And Plan: 1.Epigastric abdominal pain, likely related to acute cholecystitis. Continue with pain control. We will start on clear liquids as patient unable to have HIDA scan till tomorrow. Abdominal ultrasound does show some wall thickening and pericholecystic fluid indicating inflammation. We will start on Zosyn. 2.Acute cholecystitis. Continue with IV antibiotics. N.p.o. after midnight. HIDA scan in the [facility] ing. Appreciate Dr. Abraham's input. Dr. Solano is covering for him over the weekend should patien t needs surgery if HIDA scan is abnormal. 3.Paroxysmal atrial fibrillation, seen by Cardiology. Patient not on any blood thinners. Patient i s on amiodarone. 4.Mixed hyperlipidemia. Plan: We will continue IV fluids, IV morphine, antiemetics as well as IV Protonix. Follow up with H BRIAN scan in a.m., possible surgery depending on results. Unable to discharge patient home due to sym ptoms as well as requiring IV antibiotics and ultrasound showing acute cholecystitis. /INÉS Voice ID: [id number] Report ID: [id number]
[2019-10-31] MEDS ORDERED: TRAZODONE 50 MG TABLET PO ONE (22:10)
[2019-11-01] MEDS: PIPER/TAZO/NS 3.375gm 3.375 GM/100 ML BAG IVPB SCH ×2 (00:08→08:50)
[2019-11-01 06:43] LABS: Potassium 3.9 mmol/L (3.5-5.1)
[2019-11-01] MEDS: NA CHLORIDE 0.9% 1,000 ML IV SCH (06:46)
[2019-11-01 08:33] LABS: Absolute Lymphocytes (CBC) 1.2 K/uL (0.7-4.9); Basophils % 1.2 % (0-1.3); Hematocrit 40.3 % (39.6-49.0); Lymphocytes % 12.6 % (15.3-44.8); MPV 7.7 fL (7.6-11.3); RBC Red Blood Cell Count 4.09 M/uL (4.33-5.43)
[2019-11-01 08:45] LABS: Albumin 2.5 g/dL (3.4-5.0); Bilirubin Total 0.9 mg/dL (0.2-1.0); Potassium 3.8 mmol/L (3.5-5.1)
[2019-11-01] MEDS: PANTOPRAZOLE 40 MG INJ IVP SCH (08:45)
[2019-11-01] MEDS: AMIODARONE HCL 200 MG TAB PO SCH (08:45)
--- NOTE | 2019-11-01 10:12 | RAD REPORT ---
EXAM DESCRIPTION: NM - Hepatobiliary System W/ Ph - 11/01/2019 6:26 am CLINICAL HISTORY: ICD K21.9, R10.13, R14.0, R14.2 TECHNIQUE: The patient was administered 6.3 millicuries technetium Choletec intravenous and images of the abdomen obtained for 30 minutes. Patient was given 1.4 micrograms Kinevac intravenously and im ages of the gallbladder obtained for 30 minutes FINDINGS: Liver demonstrates prompt radiotracer uptake. Activity is seen within the gallbladder by 20 minutes. Uptake is seen within small bowel. After the administration of cck gallbladder ejection fraction equals 17% (normal values greater than 35% Patient was asymptomatic prior and during the administration of CCK IMPRESSION: No evidence of acute cholecystitis Gallbladder ejection fraction equals 17% which is diminished and may indicate biliary dyskinesis
[2019-11-01 13:14] VITALS: BP 138/65; TEMP 98
[2019-11-01 13:15] VITALS: O2SAT 95
--- NOTE | 2019-11-02 00:16 | DS ---
Date of Discharge: 11/01/2019 Consultants: Dr. Abraham of General Surgery. Dr. Smith with Cardiology. Procedures: None. Admitting Diagnoses: 1.Acute right upper quadrant abdominal pain. 2.Paroxysmal atrial fibrillation. Discharge Diagnoses: 1.Acute cholecystitis. 2.Right upper quadrant and epigastric abdominal pain. 3.Paroxysmal atrial fibrillation. 4.Mixed hyperlipidemia. Hospital Course: Patient is a 78-year-old male with past medical history of hyperlipidemia, paroxysm al atrial fibrillation, comes in with right upper quadrant abdominal pain, epigastric pain. CT scan showed distended gallbladder. Ultrasound was done, which showed distended gallbladder with mild wall thickening and pericholecystic fluid without evidence of gallstones. HIDA scan was then obtained an d showed 17% ejection fraction indicating biliary dyskinesia. Did not show any acute cholecystitis. Patient was kept on Zosyn. His white blood cell count improved. He did not have any signs of sepsi s. His pain improved as well. He was unable to tolerate a low-fat diet. He was seen by Dr. Abraham , general surgeon and Dr. Smith with Cardiology, who cleared him from cardiac standpoint. Dr. Michela cody felt that the patient could have surgery as an outpatient. The patient himself was not eager to h ave surgery during this hospital stay, wanting to leave on multiple occasions. The patient spoke wit h patient's son, Dr. Lockwood, and updated the son on the patient's condition. Patient was then doing well. Pain had essentially resolved. He understands that he has biliary dyskinesia. Can have anoth er gallbladder attack. He needs to follow up with Dr. Abraham within 1-2 weeks to have elective chol ecystectomy scheduled. Follow up with primary care physician in 2-3 days. Return to ER for worsenin g condition. Patient will finish off course of antibiotics. Diet: Heart healthy, low-fat diet. Activity: As tolerated. Medications: As per medication reconciliation list. Physical Examination: General: Awake, alert, and oriented, no acute distress, elderly male. CV: S1, S2. Respiratory: Moving air well bilaterally. Abdomen: Soft. Minimal tenderness to palpation in the right upper quadrant. No rebound or guarding . Bowel sounds are positive. Extremities: No clubbing, cyanosis, or edema. Neurologic: Nonfocal. Total time spent discharging patient was 38 minutes. PADDY Voice ID: [id number] Report ID: [id number]
== END 2019-11-01 13:05 | disposition home or self-care (01) | DRG 446 ==
LOC: ER 17:03 → INTOOBSV 22:39 → ERHOLD 22:39 → OBSVTOIN 22:39 → 2ND 23:58 → OBSVTOIN 10-31 12:59
PROVIDERS: ADMIT Internal Medicine; ATTEND Family Medicine
DX: K82.8 Other specified diseases of gallbladder (principal); I48.0 Paroxysmal atrial fibrillation; E78.2 Mixed hyperlipidemia; F17.210 Nicotine dependence, cigarettes, uncomplicated; Z98.1 Arthrodesis status
CPT/HCPCS: 36415; 71045; 74160; 76705; 78227; 80048; 80053; 80076; 81003; 83735; 83880; 84100; 84484; 85025; 85610; 90471; 90714; 93005; 94760; 96365; 99285; A9537; C9113; J2543; J2805; J3475; J7030; Q9967

== ENCOUNTER 2020-12-28 21:23 | Observation (INO) | payer OTHER ==
--- OUTSIDE RECORDS SUMMARY | 2020-12-28 21:28 | XMS REPORT | Continuity of Care Document ---
:1940 Author Organization [facility] t Address [address] Ibanez. [address] [place] [id number] Care Team Providers Name Role Phone Prezas DO Primary Care Physician Anamika Montes De Oca MD Attending Clinician ANAMIKA MONTES DE OCA Attending Clinician Unavailable LANEY Attending Clinician Unavailable DC GASTON Attending Clinician Unavailable Monty LITTLE Attending Clinician Lane BLANCO Attending Clinician MANISH GASTON Attending Clinician Unavailable Manish Gaston MD Attending Clinician Roseline Rai MD Attending Clinician Katie Pereira MD Attending Clinician Josep LITTLE Attending Clinician Servando BELL Attending Clinician Unavailable Izzy Buckner Attending Clinician Unavailable ROSELINE RAI Admitting Clinician Unavailable Payers Payer Name Policy Type Policy Effective Expiration Source Number Date Date [employer]OTAL[employer] SNP MEDICARE [id number] HMO-CIGNA CIGNA O - RNPO PCP - [id number] RENAISSANCE IPA MEDICARE PART A \\T\\ B [id number] - MEDICARE CIGNA [id number] 2020 [facility] HEALTHSPRINGCIGNA 00:00:00 - Medic [facility] [id number] 2020-Pr esentMaps Contracted CIGNA [id number] 2019 [facility] [id number] 2019-Pr esentHMO Problems Condition Condition Condition Status Onset Resolution Last Treating Co mments Source Name Details Category Date Date Treatment Clinician Date Late onset Late onset Disease Active [facility] Alzheimer' Alzheimer' 4-17 Ebonie kes - s disease s disease 00:00: Medi cierra without without 00 Center behavioral behavioral disturbanc disturbanc e e 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 4-17 Luke s - cord with cord with 00:00: Medi cierra unknown unknown 00 Center primary primary site site Chronic Chronic Disease Active [facility] atrial atrial 4-15 [facility] - fibrillati fibrillati 00:00: Me dical on on 00 Center Chronic Chronic Disease Active [facility] midline midline 4-15 [facility] - low back low back 00:00: Medica l pain with pain with 00 Cent er right-side right-side d sciatica d sciatica Acute Acute Disease Active [facility] midline midline 4-15 [facility] - low back low back 00:00: Medica l pain with pain with 00 Cent er bilateral bilateral sciatica sciatica Cough Cough Disease Active [facility] 12-21 [facility]i 00:00: st 00 Mass Mass Disease Active [facility] 12[facility]21 [facility] 00:00: st 00 Blood in Blood in Disease Active [place] [facility] urine urine 30 Methodi 00:00: st 00 Benign Benign Disease Active [facility] prostatic prostatic 02-07 Meth reymundo hyperplasi hyperplasi 00:00: st a with a with 00 urinary urinary obstructio obstructio n n Urinary Urinary Disease Active [facility] tract tract 02-07 Methodi infectious infectious 00:00: st disease disease 00 abdominal abdominal Disease Active Vania wilkerson aortic aortic 4-12 Methodi dilation dilation 00:00: st (<3 cm) (<3 cm) 00 Abnormal Abnormal Disease Active 2015-07 [place] [facility] electrocar electrocar 16 Ok thodi diography diography 00:00: st 00 Hyperlipid Hyperlipid Disease Active 2015-07 [place] emia emia 1-16 Methodi 00:00: st Hypertensi Hypertensi Disease Active 2015-07 [place] on on 16 Methodi 00:00: st Paroxysmal Paroxysmal Disease Active 2015-07 [facility] atrial atrial 16 Methodi fibrillati fibrillati 00:00: st on on 00 Raised Raised Disease Active [facility] prostate prostate 6-20 Method i specific specific 00:00: st antigen antigen 00 Ureteric Ureteric Disease Active [place] [facility] stone stone 9-16 Methodi 00:00: st 00 Low back Low back Disease Active [place] [facility] pain pain 8-11 Methodi 00:00: st 00 Allergies, Adverse Reactions, Alerts Allergy Allergy Status Severity Reaction(s) Onset Inactive Treating Comm ents Source Name Type Date Date Clinician No Known DA Active [facility] All[facility]ie 5-17 [facility] 00[facility] d [facility] Family History Family Member Diagnosis Comments Start Date Stop Date Source Natural brother No Known Problems Damian rojas [facility] Natural father Hypertension [facility] Natural sister No Known Problems Vania King Social History Social Habit Start Date Stop Date Quantity Comments Source Sex Assigned At [facility] Cigarettes smoked 2019-04-05 2019-04-05 Zacarias King current (pack per 00:00:00 00:00:00 day) - Reported Cigarette 2019-04-05 2019-04-05 Adames Octavio ist pack-years 00:00:00 00:00:00 Tobacco use and 2019-04-05 2019-04-05 Former user Zacarias King exposure 00:00:00 00:00:00 Alcohol intake 2019-04-05 2019-04-05 Current [facility] thodist 00:00:00 00:00:00 non-drinker of alcohol (finding) Smoking Status Start Date Stop Date Source Former smoker 2019-04-05 00:00:00 2019-04-05 00:00:00 [facility] Medications Ordered Filled Start Stop Current Ordering Indication Dosage Frequency Signature Comments Components Source Medication Medication Date Date Medication? Clinician (SIG) Name Name lidocaine 2021- Yes 1{patch Q24H Place [address] (LIDODERM) 4-18 -18 } patch onto kes - 5 % patch 00:00: 23:59 the skin Med ical 00 :00 daily Center Remove & Discard patch within 12 hours or as directed by . polyethylen 2020- No 17g QD Take [address] e glycol 4-18 05-18 by mouth [facility] - (GLYCOLAX) 00:00: 23:59 daily for M edical 17 gram 00 :00 30 days. Center packet amiodarone Yes 200mg QD Take [address] (PACERONE) 4-17 mg by [facility] - 200 MG 17:14: mouth Medical tablet 02 daily. Center cyclobenzap Yes 10mg Take [address] [address] rine 4-17 by mouth 3 [facility] - (FLEXERIL) 17:14: (three) Medi cierra 10 MG 02 times Center tablet daily as needed for Muscle spasms. aspirin 81 Yes 81mg QD Take [address] MG EC 4-17 by mouth [facility] - tablet 17:14: daily. Medical 02 Center HYDROcodone 2020- No 1{tbl} Take [address] -acetaminop 4-17 -17 tablet by Ebonie ramirez (NORCO 14:59: 00:00 mouth Medic al 7.5-325) 23 :00 every 6 Center 7.5-325 mg (six) per tablet hours as needed for Pain. gabapentin 2021- Yes 100mg [id number] Take [address] (NEURONTIN) 4-17 04-17 [id number] capsule [facility] - 100 MG 00:00: 23:59 3D (100 mg Medical capsule 00 :00 total) by Center mouth 3 (three) times daily. senna 2021- Yes 8.6mg QD Take [address] (SENOKOT) 4-17 -17 tablet [facility] - 8.6 mg 00:00: 23:59 (8.6 mg Medical tablet 00 :00 total) by Center mouth nightly. acetaminoph 2021- Yes 650mg Take [address] en 10-16-12 tablets [facility] - (TYLENOL) 00:00: 23:59 (650 mg Medi cierra 325 MG 00 :00 total) by Center tablet mouth every 4 (four) hours as needed for up to 360 days. docusate 2020- No 100mg Q.5D Take 1 [facility] t sodium 10-16 capsule [facility] - (COLACE) 00:00: 23:59 (100 mg Medic al 100 MG 00 :00 total) by Center capsule mouth 2 (two) times daily for 30 days. HYDROcodone 2020- No 1{tbl} Take [address] -acetaminop 10-16 tablet by Ebonie ramirez (NORCO 00:00: 23:59 mouth Medic al 10-325) 00 :00 every 6 Center 10-325 mg (six) per tablet hours as needed for up to 15 days. Max Daily Amount: 4 tablets morphine 2020- No 15mg Take [address] [facility] (MS CONTIN) 10-16 tablet (15 L ukes - 15 MG 12 hr 00:00: 23:59 mg total) Medical tablet 00 :00 by mouth Center every 12 (twelve) hours for 15 days. Max Daily Amount: 30 mg ondansetron 2020- No 4mg Take [address] [facility] (ZOFRAN-ODT 10-1627 tablet (4 Ebonie kes - ) 4 MG 00:00: 23:59 mg total) Medic al disintegrat 00 :00 by mouth Cent er ing tablet every 8 (eight) hours as needed for up to 10 days. morphine No 15mg Take [address] [facility] (MS CONTIN) 10-1617 tablet (15 L ukes - 15 MG 12 hr 00:00: 00:00 mg total) Medical tablet 00 :00 by mouth Center every 12 (twelve) hours for 15 days. Max Daily Amount: 30 mg amIODarone 2018-07 Yes TAKE 1 [place] (PACERONE) 2-30 TABLET BY Meth reymundo 200 MG 00:00: MOUTH st tablet 00 EVERY DAY coconut oil 2018-07 Yes coconut Vania ston 1,000 mg 0-04 oil Methodi capsule 14:08: st 36 atorvastati 2017-07 Yes TAKE 1 [place] (LIPITOR) 1-05 TABLET BY hodi 10 MG 00:00: MOUTH st tablet 00 EVERY DAY vitamin B 2017-07 Yes Take by Juan on complex (B 1-02 mouth Methodi COMPLEX 1 14:35: daily. st ORAL) 53 aspirin 2017-07 Yes Take 1 Adames (ECOTRIN) 1-02 tablet Methodi 81 MG 14:34: every day st enteric 49 by oral coated route. tablet FLAXSEED 2017-07 Yes 1200mg Take 1,200 [place] OIL ORAL 1-02 mg by Methodi 14:34: mouth. st 49 cholecalcif 2017-07 Yes Take by Vania wilkerson tory, 1-02 mouth. Methodi vitamin D3, 14:34: st (VITAMIN 49 D3) 5,000 unit tablet turmeric 2017-07 Yes Take by Amber n root 1-02 mouth. Methodi extract 500 14:34: st mg capsule 49 glucosamine 2017-07 Yes Take by Vania wilkerson /chondr bird 1-02 mouth. Methodi A sod 14:34: st (OSTEO 49 BI-FLEX ORAL) Immunizations Ordered Immunization Filled Immunization Date Status Commen ts Source Name Name FLUZONE HIGH-DOSE PF 2018-04-15 Completed [place] 00:[facility]:00 [facility] Vital Signs Vital Name Observation Time Observation Value Comments Source Systolic blood 2020-10-16 08:33:00 118 mm[Hg] [facility] Diastolic blood 2020-10-16 08:33:00 57 mm[Hg] [facility] S t [facility] Heart rate 2020-10-16 08:33:00 62 /min [facility] Body temperature 2020-10-16 08:33:00 35.94 Mana [facility] Respiratory rate 2020-10-16 08:33:00 18 /min [facility] Oxygen saturation in 2020-10-16 08:33:00 95 /min [facility] Arterial blood by Medical Ce nter Pulse oximetry Body height 2020-10-14 02:41:00 172.7 cm [facility] Body weight 2020-10-14 02:41:00 79.379 kg [facility] BMI 2020-10-14 02:41:00 26.61 kg/m2 [facility] Procedures Procedure Date / Time Performing Clinician Source Performed MR BRAIN WITH & WITHOUT 2020-10-16 15:08:00 Rachel Raimal [facility] - IV CONTRAST [facility] CBC W/PLT COUNT & AUTO 2020-10-16 04:49:00 TJ Aguero [facility] - DIFFERENTIAL [facility] BASIC METABOLIC PANEL 2020-10-16 04:49:00 Laci [facility] - (7) [facility] RPR 2020-10-16 04:49:00 Chantelle Rai [facility] CBC W/PLT COUNT & AUTO 2020-10-15 04:08:00 TJ Aguero S [facility] - DIFFERENTIAL [facility] BASIC METABOLIC PANEL 2020-10-15 04:08:00 Laci [facility] - (7) [facility] TISSUE EXAM 2020-10-14 17:04:00 Chantelle Rai [facility] CT 2020-10-14 16:44:00 Chantelle Rai [facility] - BIOPSY/ASPIRATION/INJECT [facility] ION ECG 12-LEAD 2020-10-14 14:26:29 Unknown, Hl7 Doctor [facility] ECG 12-LEAD 2020-10-14 14:24:14 Unknown, Hl7 Doctor [facility] CBC W/PLT COUNT & AUTO 2020-10-14 04:17:00 TJ Aguero S [facility] - DIFFERENTIAL [facility] BASIC METABOLIC PANEL 2020-10-14 04:17:00 Laci [facility] - (7[facility] TSH/FREE T4 IF INDICATED 2020-10-14 04:17:00 Laci [facility] VITAMIN B12 AND FOLATE 2020-10-14 04:17:[address] [facility] t [facility] URINALYSIS W/ REFLEX 2020-10-14 01:48:00 Kasi Gaston [facility] - URINE CULTURE [facility] CT LUMBAR SPINE WITH & 2020-10-13 23:38:00 Michael Wilson JT Busby - WITHOUT IV CONTRAST Medical Cent er CT BRAIN WITHOUT IV 2020-10-13 23:38:00 Kasi Gaston [facility] - CONTRAST [facility] SARS-COV2/RT-PCR ([facility] & 2020-10-13 21:38:00 [facility] ABORH, MANUAL 2020-10-13 21:31:00 Mary Roche [facility] CBC W/PLT COUNT & AUTO 2020-10-13 17:31:00 Kasi Gaston CHI t [place] - DIFFERENTIAL [facility] COMPREHENSIVE METABOLIC 2020-10-13 17:31:00 Kasi Gaston [facility]I - PANEL [facility] PT/APTT 2020-10-13 17:31:00 Kasi Gaston [facility] TYPE AND SCREEN, 2020-10-13 17:31:00 Kasi Gaston [facility] - AUTOMATED [facility] CT CHEST W CONTRAST 2020-10-11 00:00:00 Provider, Historical Vania King CT HEAD W WO CONTRAST 2020-10-11 00:00:00 Provider, Historical Chapito King MRI CERVICAL SPINE WO 2020-10-06 00:00:00 Provider, Historical Chapito King CONTRAST CT ABDOMEN PELVIS W 2020-10-06 00:00:00 Provider, Historical Vania King CONTRAST MRI LUMBAR SPINE WO 2020-10-06 00:00:00 Provider, Historical Vania King CONTRAST XR LUMBAR SPINE 2 OR 3 2020-09-16 00:00:00 Provider, Historical Zacarias King VW Plan of Care Planned Activity Planned Date Details Comments Source Future Scheduled 2021-03-[address] [facility] - Test 00:00:00 (Season Ended) [code = [facility] INFLUENZA VACCINE (Season Ended)] Future Scheduled 2021-01-30 INFLUENZA VACCINE [place] [facility] 00:00:00 [code = INFLUENZA VACCINE] Future Scheduled 2020-07-[address] [facility] - Test 00:00:00 (12+) [code = Medical Center DEPRESSION SCREENING (12+)] Future Scheduled 2020-07-02 Medicare IPPE (WELCOME [facility] - Test 00:00:00 TO MEDICARE) [code = Medical Center Medicare IPPE (WELCOME TO MEDICARE)] Future Scheduled 2005 65+ PNEUMOCOCCAL [facility] Test 00:00:00 VACCINE (2 of 2 - PPSV23) [code = 65+ PNEUMOCOCCAL VACCINE (2 of 2 - PPSV23)] Future Scheduled 1990 SHINGLES VACCINES (#1) [place] [facility] Test 00:00:00 [code = SHINGLES VACCINES (#1)] Future Scheduled 1990 SHINGLES VACCINES ([address] [facility] - Test 00:00:00 of 2) [code = SHINGLES Medic al Center VACCINES (1 of 2)] Future Scheduled 1959-11-16 DTAP/TDAP/TD VACCINES [facility] - Test 00:00:00 (1 - Tdap) [code = Medical C enter DTAP/TDAP/TD VACCINES (1 - Tdap)] Future Scheduled 1952 COVID-19 VACCINE (1) [facility] st[facility] Test 00:00:00 [code = COVID-19 VACCINE (1)] Future Scheduled 1952 COVID-19 VACCINE (1) [facility] - Test 00:00:00 [code = COVID-[address] VACCINE (1)] Encounters Start End Encounter Admission Attending Care Care Encounter Source Date/Time Date/Time Type Type Clinicians Facility Department ID 2020-12-21 2020-12-21 Office THANG Montes De OcaRajiv [id number] 11:33:03 15:02:03 Visit Martín Ryan [id number] 2020-12-21 2020-12-21 Outpatient DOMENIC MONTES DE OCA [facility] [id number] [facility] 11:33:03 15:02:03 MARTÍN leal of Medicin e 2020-12-21 2020-12-21 Outpatient DOMENIC DAVISON [facility] [id number] [facility] 11:28:26 13:06:22 ARINA [facility] 2020-12-21 2020-12-21 Outpatient [facility] [id number] [facility] 00:00:00 00:00:00 [facility] 2020-11-30 2020-11-30 Outpatient LANEY, [facility] [id number] [facility] 12:56:50 13:54:30 ARINA [facility] 2020-11-19 2020-11-19 Outpatient MARILIN, [facility] [id number] [facility] 11:01:03 13:01:02 BRITTNEY [facility] 2020-11-18 2020-11-18 Outpatient LANEY, [facility] [id number] [facility] 08:29:34 10:01:36 ARINA [facility] 2020-11-09 2020-11-09 [facility] [id number] 14:52:43 15:30:13 Visit Martín Ryan [id number] 2020-11-09 2020-11-09 Outpatient TAVON [facility] [id number] [facility] 14:52:43 15:30:13 MARTÍN [facility] 2020-10-22 2020-10-22 Office Tavon [facility] [id number] 12:29:26 14:14:31 Visit Martín Ryan [id number] 2020-10-13 2020-10-13 Office BENITO Pereira [id number] 13:50:58 15:41:36 Visit Rajesh AMBULATOR [id number] Katie Wisdom [id number] Results Test Description Test Time Test Comments Results Result Comments Source Tissue Exam 2020-11-03 14:25:00 Test Item Value Reference Range Interpretation Comme nts Case Report (test code = 104) Surgical Pathology Report Case: [id number] Authorizing Provider: Chantelle Rai MD Collected: 10/14/2020 05:04 PM Ordering Location: [address] Received: 10/15/2020 08:57 AM Service Pathologist: Jonathon Brice MD Specimen: Spine, Lumbar ADDENDUM 2 (test code = 3382) y2blmLRbGBXonBI8XdEhTQRnn1dsi5OjgKXsv GFy LPkshEVpgaFpiy62kRV5vU11DX2fZYGsNeR1HZJx ebN6Ywc4FGPqMNFyxZVuS651x6mqy7pnqrWglJJ8 jNnkPWLuXFBjLRraPAJuOdViDtONZ63KRVYPPfRB ZRDQBnXYKClyUK3qVaWHR4JNVKSGDLcMVQ0LARho NM4XMA2KH5GFCQ0UIHJyvoatHYLrWzHFKNoBQbep GMSpTJ6RVI0YT6HMHE0aSj7NTFUmYSTrTM4FQWUF F94FRLHBG3nCIYuXVuXZMJaMEJcLRKmoAEBxhFUl DVARKYKCW4DAOnS9ZAA0YObsUHGjvd6= ADDENDUM (test code = 3381) p1wpwZLoARXhjDO1BqEsMJVwf0oci3TghBUwyNF y KNoeaKWonnQqzd02xVU3wL30AZ6vMRHyHmS8AXHn tpI1Owu3FLZeYBLcbAUbL443d1wcc7zezkYnnUK0 fVxwYXJkXHBsYWluXGZzMjAgVGhpcyBhZGRlbmR1 lJInpaMnBPelIvFfx7I3LNOmzZ7ypfKxh8S9GJWm n6OuqANhh1CcRLAGOIFkcK6teB3mi7SymQ7ffWWq Nr5nhONpSIA8YT4eh8kuej8jfYYgKAjxJz0oSETn cgwedz5njAUdPUDjlcUIXDROPVH7ZCIJMT8hPEtn FlHnKVImy32mUZotXKuHOgHVU1VVTDziJxPfloCz vbMgvXftRXFvksXCAW6BVaIKTf2QH5IQDV1ESOYX J3AGSaV9VWMenQCdGFXzgsUGkOQjk5Cij5RrPYC9 mNEwpTXrACFrMD3sNHWdraUfj8B2SBTsrpPgtEF0 aGVyIGRldGFpbHMuXHBhcn0= DIAGNOSIS (test code = 3220) w9axcBChOGLim4rhBXEedDYtRyDeNuVkOcMuBp pc dWMxIHtccnRmMVxlcGljOTIwMlxhbnNpXHNwbHRw K6CzuakmCVthRY9zIO3svNnipUEsuYHeDHHgNxDk b2reu141tUPrv4flPZPQzbpzqFt7qArqA88jh8Q7 GtkiY65qtBZfDGuwzMMppkkpmjCkJPGoZGcJAROU ThQGZKyYQHevO3PbF4EODRHKEGEQL8ZXKZbylJWv JGImECDVE97VQERRADKVWCpKRYOQAnEFIh0WLYdv EbWOB8VmILMLAy3QIDJMSD5JBYWwXlVGJLPrN88i DD2RRDrYNZ3XONSuU2HDAYYNXI5QWcQcPAIfou28 IYU3ZrKsl7D4RJS4WIMpWHCld1reJRGsqBUqFgEd HmCoQwXgEdesmGYhXICkGpAqo6nsx297hJTno9uk MABfIlB3wOUkRYNmdEIcI179TSUmBWkvn5xug1Gp MFCjgPXxs5O1AWBQaqppeXo1nYvcB58eu3V2Qack L2gvQKDgZESfU9ZbCM0vSJPmDwt3UBK8QZI2MIGd CVUcB0FiAI8zVRGhmJToHXb1v4lczEogNRLjMIE2 v7utGStkveGfES2kwn8ipYb0g5dqrhXiCPRiLUWs aGMSFMUkA0CpkBljNc8deZr5mXwzBiwdFKW0Jzd7 RE4jqg60lwk4lQmvGZUzsuyzEuD7PUfnRSNiakkj CWh4BTyaDEFxaDH3ZKDthKUtU5PjIWBmFJ8vzpf6 NHH8MFhjRYHsYxA3GYQvrXLaOQNesIziVMvrh231 YDT7MiIlVF7rH5Lnn8P3pM0vjMZoSNRcqYDaIiSg RWAdtv4dkDUsVMbdq3ZnCOV3fwW7rOYnpTYlJDUb FnO8WQkfWE7wxh20TTEcXAR0py3xwMApsVpexnTq sLKsPRzjV2FuDAQea962EUUaL3FbMZAon7B3haAv ZgPaKDOwrIP3ppO1NWKxMV8jlcjxe5vkOOrjRDjl XELpgrH3okW7PGGxxJPwX3UeiS0gILLvON4wnzqa z3rdRWJ6MPelQJMoZKT0TyXsDSIna2Wshgc3WmSt q2JoaUUyEZdrG77sy990OTYxtsMjT2ywmAWkelwb jTWyicjaNTqistF7OHXwNRkhfemyLRPnAGseZ5hf EpJtLCWnoCbeDSqrn4AzFASrMDWpNhQmaRYuEDYm Klx4KOOmxMXrCPRzPsQgK7cxalpiSsKOJTFhg2sg O0mtiZKAuYAqW7DgVHrbfmExCQxlMAxyASGsYGS4 WG4mOQQjHBBwax76 COMMENT (test code = 3359) y3micGRcNUOgzDR9CbYgJUGyt3gbw0AhdQVsgYQz AEzblSUtekKspt99uAZ6gP43BP0aLTUoQbJ8ITWd fyF2Xhc8GQUmAVZksICnK862n4pjx5tuihJhiUE6 bBnlFHTxEWUzAEouKBMxYnUfDYgcyB2ua3reP7Kq oLxdTEHfNHO9gC5fxkHxkfZkIKElQVb9FSVdl9It nOCncPCkUALjjcDwDXUePBKdxoDeq4idx2Ptz57f iAYnyJntwJ1cw9s8RLM7yWlfQYFny1AulBTrisGr rsVsnL57ESfgJP9uKFMlic5pbMmigr8vLT7hnK1b nCuvxL6tpBBmwKHdlDb1MGH9jGXgiWUsz5NxaUDz nF3unQIovvJvFo2cLFLYHNCnBeOwA05rNlqmhJsc LuQguRv0jNZneUEiWR2bfDwguwvclP20RIYnjhNH ISXfEGoeCzQox6fpOFMsSMA5KVIfhwEaDMVPRZlp ZZOgUK3yH3C7dZQqHfCUwUzodFwpLSTlBKQeJE1n rTEbmBXbv6OsIZ2cgHbaCRqnBKWgSLUhMUHrU4Yb O2ibkESfdAxqyaK6kOlzjYLtGzInL3RyCMusoMXl w4SwKGO7vSAtzLlsVF99ZNHtbVzkCDNeh5PsEH3b TTZnNVBwcPtooEQgsFRynDQ9nHHoCUZtMKGmy8Tx vK5et2o3GNJqeL6ufT2gtdPertVcM41esQE4zGWl CKZ3xFRaIKRcOT5lF6VtN6ccf43jMiQZuDwwrQMm eAVzonZluoAdaS7eo7quNaWtk4PrDUmpjOnexgRs xyVvDZZplT5jhfTqSHO4nqNzHLPugx9eyrQmyOvn MHFkzI2dhtziv2h2BZ5apSSvmB== CPT Code(s) (test code = 3357) y1nmtFHqIKPgnEK9XhYwVBKyk4kmy1PwbQSk cGFy NTrsvLEqkoUeqt32lFG1zX99VU3dATAlHdS0USVa haG4Okw3UZBlTYCttTMzD153n1cgw6dpfoJfgBV2 fVxwYXJkXHBsYWluXGZzMjAgODgzMDdccGFyIDg4 FmEbAVFcxlL4EIU0RLpbFTQisy4= CLINICAL HISTORY (test code = 3356) m1quwWPwTIJxdKP9VnLvHRSwk7gls4W sdHBncGFy ZDdabTHstmMbud53jZN0xU18FZ1iOPCjEwW6EZQz erL2Wnz8QFLiHZWsxAOaH905c7isf5drduOczNH2 lMbnMVSpRUIgVZsxLOIiDkLjH1zdx53hWuJgcRVw aJ1wWOqwwzFbTMXpCWTyrZ0ts8l2iDLqlXuesZ0s lMBpVAThR6nmgGizWBcbPES9 SPECIMEN SOURCE (test code = 3377) m2xsgMHqGFCztWK8JaSuYPVrq7vnv6Qi dHBncGFy UTlyySEbtbKexb77eTL6fF03TP0cHBNzNqG4GANo shA8Dyw0KMJlHMAdiJSzF229a3jeo7pdvxNwiVQ0 gGgcHZDuBMJtRUulIDJpOeAtY9FkodQvWZk1oSJv clxwYXJ9 GROSS DESCRIPTION (test code = 3366) d8cmmAPbXUKerGVzCkTwVGGbNAUys6 lcZGVmbGFu [file] UClccGFyfQ== MICROSCOPIC DESCRIPTION (test code = s2grhXUeUMEnzLZ1UbAiJDGbh5mfs2 BsdHBncGFy 3371) FYktiDUvpqYbfz75nUJ5tB67FI4jJORsLyE7HNDd fjS5Kag9ZECeDXRnkIAhZ869x3gnk3giagVebXQ1 eWazJJHaRINzEBzdZYRvMkKwLMHrTn3kaHYmXhhv YXJccGFyZFxwYXJ9 SPECIAL STUDIES (test code = 3376) w8ohkJOcKJWjg2xfXZPucLGlTpRtBcEg ZnRuYmpc rXYlUZuehwToAAsxp3ZlM8FkGtUtMLxuoqMiQELi HivpomaaEKMfBRI9ucRyKXGhSLdgUURzMWsaVr8g eXCzmKkeInElNELjk6hjodNBvwyqpNw5r7zaRAMh SvF7qIVdMYxlJ4hzbqYawBYfY9FjxXDopOl8k3on WxBnXrY8dJPbAYzjM3licjTzmNIlIPNsAOc2dU57 NNLgjB5nwCLsVHiabyPeUuH1ORfeCIAmIqT0AABv bVJwTATvE0dwUDHaKVpuDVUnFKzlmZGoUII6rEmz i9L2qXUgiZMwmBkpLjTmUtLuPkMLp9NkZCv6gQwr F3RaAPChMfR2aVUiYBBiUKowXBLqAZXsjdA0cFto tlYxh34kmUPnZBIoZRVaLsAqaRcrHFCoFYSGi5Ma hDadIFV4mPm6pEgePtctFBX8Gqz9NX8sxf18dnm6 lVlxRLCwpxawWyU6PWmsSHNdcnnkJTk0HLqpRVQp xLS5QYZgzTLyT8CrJEEaMK8zgqh9VVK1VOhcOALy EgT5RLCrcHXsYLZwnYwuCFaoa360OYF5EhPuPN0w W0Lfo9J0dB6fyOJlFXZmaTCfRhBcNSIvin1glOBr HDqbq9CxXKN8ejX4gSEbhPJiPTKeOR50Fnlga2Eu Wjnbk2FuD83ntRH8OMfqe8cxER0xGmL1ceBmHJar f9ipnS1zDtT2QPifUF4xGT2jXKUlcI5pvcrlDHJe RgFjemovQYTqwOzcxpMuTg3rtXarGYB9CCioD9zr pT6cLhU6NIftQ2qpcD5nWBn1WBgqtEI0GYZubX0k FO9fwduek6xcTNqiSNwnGECuajT1jdK0IPUhjDSy R3CylG0oAVRfRK8jcqywb0kdTPC1DVvxSVQkIQZ9 GfLeBIUnh3Hxpzs3AkQtf6PhcQEtBVdhY34zr108 YGVsquSlM0kccDRfkzkhmGFatljtFAbgaqY7NIRw XHBsYWluXGYxXGZzMjJcbGFuZzEwMzNcaGljaFxm DQgiEmZlTSNhHNczU3wlSoRkU7GqRBPiJhUzOTil LMpsnFChnZMwnXR9oS8hZM4aDZJwfZAiM1VxTPIc yiMwhGMgVAQ5uKHnwZPcHI8dZXoveAWur9hen8Db L5fjnRaslQS1CN5hOXQuMZLbXGhsw3ZfnR9sNjng aWWgzbpxLXehmzVuKWsihhqlMPNiYMfyR5zuRcXi MOZkkDmiMZkhk2KfJJIpBHVhOedtwwCcZLf4pfOc CKKuvfxsJLWjdNqkuR1sYnCqUuXnCcguOS2cXSFd F3ftbTAsFXEeEXYtP7drKaQeiV9weYybNSfeYeTm QbYvCySAx912xx3dASApyQJmbaONqIVijX8hGTrz NRceXUkytYPpBUkku3ioYFGmn6z4wVCiROFamrEw u3ehQPsyqrXoXGVjkKWcnGUfLOPzn53tTWdoiUrk vZuaXJDwt4MnvCfyy6McKmJbHBagv5RoZ87lvSDq wVLnbPdsXKSbjzEdEMXoz52bm6seDSEjXzG9fYJr zIF0pLMofIWtd1MlcBdwUURbn1teXCIsdg9xapna nXMtu0EgqX0onvzgNTnvrBMwvdSzDZUgw6k3aSHm DMVfSYBwURouoOd6NACxz784vi0pxkN3bUVoLVF5 YWlsYWJsZSBhcmUgZXZhbHVhdGVkXHBsYWluXGYx XGZzMjJcbGFuZzEwMzNcaGljaFxmMVxkYmNoXGYx FQydZ8mvGmEbU2SbDZTsLoBtwEWeQ3qkpAKoGTTa YWluXGYxXGZzMjJcbGFuZzEwMzNcaGljaFxmMVxk FnEgKCZeXLqdP8jyLpIjX2OgJQTqGmWfCZhjvIVm krgxTHbaswXwRCkgbadcKSJrZMlzN9qpVrKcCPLh gBmtSGbvy4UaVYQgQMKhHwospcLdXDs2ozHdLYNg ewyjhFBmrvmsDMbxkiFbQSbgeoduONOpOPxeT9vh [file] CbmsYFI6hB== [facility] [id number] 14:25:00Surgical Pathology Report Case: [id number] Authorizing Provider: Chantelle Rai MD Collected: 10/14/2020 05:04 PM Ordering Location: [address] Received: 10/15/2020 08:57 AM Service Pathologist: Jonathon Brice MD Specimen: Sp ine, Lumbar REASON FOR ADDENDUM: TO REPORT ADDITIONAL IMMUNOSTAINSRESULT: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 LUMBAR SPINE, CT GUIDED BIOPSY: - NONSMALL CELL CARCINOMA, FAVOR ADENOCARCINOMA BASED ON MORPHOLOGY (SEE COMMENT) Signing Pathologist Direct Phone Line: [phone] signed by Jonathon Brice MD on 10/20/2020 at 7:19 AMPreliminary result electronically signed by Jonathon Brice MD on 10/16/2020 at 11:17 AMHistologically, the tumor is largely poorly differentiated and shows solid histology, while focal areas show gland formation. Immunohistochemically, the tumor is positive for CAM5.2 confirming epithelial origin; however TTF-1, Napsin-A, p40 and PAX-8 arenegative. Likely, the sample is sub-optimal due to decalcification which affects immunoreactivity. Overall, based on the clinical picture and morphology, findings are compatible with adenocarcinoma. Clinical and radiologic correlation is recommended to determine the primary site.[id number] midline low back pain with right-sided sciaticaSpine, lumbarReceived in formalin labeled the patient's name, accession number and "right L1 vertebra" are multiple cagle-white, trabeculated bone cores measuring up to 1.5 cm in greatest length by 0.1 cm in diameter, which are filtered and submitted in toto in A1 following decalcification.BELLA Lopez, HT (ASCP)Performed.The interpretation of this case included the use of immunohistochemistry or special stains.Control Slides Examined: In-houseknown positive controls were evaluated along with the test tissue. These control slides run alongside of the patients sample show appropriate staining. Internal positive and negative controls when available are evaluated Immunohistochemistry technical testing was performed at [facility]ology Laboratory where it was developed and its performance characteristics were determined. It has not been cleared or approved by the U.S. Food and Drug Administration. The FDA has determined that such clearance or approval is not necessary. The test is used for clinical purposes. It should not be regarded as investigational or for research. This laboratory is certified under the Clinical Laboratory Improvement Amendments of 1988 (CLIA-88) as qualified to perform high complexity clinical laboratory testing.ECG 12 lead 2020-10-18 15:30:59Interface, External Ris In - 10/18/2020 3:31 PM CDTVentricular Rate 47 BPMAtrial Rate 47 BPMP-R Interval 138 msQRS Duration 100 msQ-T Interval 532 msQTC Calculation(Bazett) 470 msP [place] 29 degreesR [place] -35 degreesT [place] -42 degreesSinus bradycardiaLeft axis deviationST & T wave abnormality, consider anterolateral ischemiaProlonged QTAbnormal ECGWhen compared with ECG of 25 MAY 1998T wave inversion now seen in the precordial leadsQT has lengthenedConfirmed by MD OZZIE, JACKIE ([id number]) on 10/18/2020 3:30:57 [facility] 13:23[facility]00 Test Item Value Reference Range Interpretation Comments RPR (test code = 99050-5) Nonreactive Nonreactive Lab Interpretation (test code = Normal 55225-7) [facility] 13:23[facility]00 Test Item Value Reference Range Interpretation Comments RPR SCREEN (BEAKER) (test code = Nonreactive Nonreactive 420) MR, BRAIN, [id number] 15:32:00Unlisted Reason for Exam - Click Yes and Enter Reason Below->YesUnlisted Reason for Exam->suspected metastatic cancer. memory impairment.Deos the patient have an implanted electronic device?->No [facility] 1940 Sex: MFINAL REPORT MRI Brain with and without contrast Clinical History: Unlisted Reason for Examsuspected metastatic cancer. memory impairment. Technique: MRI of the brain utilizing axial T1, T2, FLAIR, GRE, DWI, sagittal T1; and postgadolinium axial, sagittal, and coronal T1-weighted images. Comparisons: CT 10/13/2020 Findings: There is no abnormal intracranial enhancement or mass. There is no evidence of acute infarct or hemorrhage. There is mild periventricular and subcortical white matter T2 hyperintensity, which is nonspecific but compatible with chronic microvascular ischemic change. There is generalized parenchymal volume loss without hydrocephalus, midline shift, or felice arent mass effect. There are no extra-axial fluid collections. The craniocervical junction is preserved. The major intracranial flow-voids appear patent. There is bilateral cataract surgery. IMPRESSION: No evidence of acute infarct, hemorrhage, hydrocephalus, or mass. Specifically, no evidence for intr acranial metastatic disease. Signed: Mane Campbell MDReport Verified Date/Time: 10/16/2020 15:32:21Reading Location: [address] Neuro Reading Room MR brain without & with IV [id number] 15:32:00Interface, External Ris In - 10/16/2020 3:34 PM CDTFINAL REPORT MRI Brain with and without contrast Clinical History: Unlisted Reason for Examsuspected metastatic cancer. memoryimpairment. Technique: MRI of the brain utilizing axial T1, T2, FLAIR, GRE, DWI, sagittal T1; and postgadolinium axial, sagittal, and coronal T1-weighted images. Comparisons: CT 10/13/2020 Findings: There is no abnormal intracranial enhancement or mass. There is no evidence of acute infarct or hemorrhage. There is mild periventricular and subcortical white matter T2 hyperintensity, which is nonspecific but compatible with chronic microvascular ischemic change. There is generalized parenchymal volume loss without hydrocephalus, midline shift, or apparent mass effect. There are no extra-axial fluid collections. The craniocervical junction is preserved. The major intracranial flow-voids appear patent.There is bilateral cataract surgery. IMPRESSION: No evidence of acute infarct, hemorrhage, hydrocephalus, or mass. Specifically, no evidence for intracranial metastatic disease. Signed: Mane Campbell MDReport Verified Date/Time: 10/16/2020 15:32:21 Reading Location: [facility] C013V Neuro Reading Room [facility] Metabolic [id number] 05:51:00 Test Item Value Reference Range Interpretation Comments Sodium (test code = 142 meq/L 288-205 2041-2) Potassium (test code 4.8 meq/L 3.5-5.1 Specime n slightly = 2823-3) hemolyzed Chloride (test code = 105 meq/L 98-107 2075-0) CO2 (test code = 29 meq/L 22-29 2028-9) BUN (test code = 22 mg/dL 7-21 H 3094-0) Creatinine (test code 0.97 mg/dL 0.57-1.25 Specim en slightly = 2160-0) hemolyzed Glucose (test code = 107 mg/dL 70-105 H 2345-7) Calcium (test code = 8.6 mg/dL 8.4-10.2 22615-0) EGFR (test code = [place] [address]-9) CLINICAL DATA T O CALCULATE ESTIMATED GFR. JONATHAN (test code = JONATHAN) Grain Wafer Machine Operator ID - EDASI Lab Interpretation Abnormal (test code = 28762-1) [facility] METABOLIC [id number] 05:51:00 Test Item Value Reference Range Interpretation Comments SODIUM (BEAKER) (test 142 meq/L 136-145 code = 381) POTASSIUM (BEAKER) 4.8 meq/L 3.5-5.1 Specimen slightly (test code = 379) hemolyzed CHLORIDE (BEAKER) 105 meq/L 98-107 (test code = 382) CO2 (BEAKER) (test 29 meq/L 22-29 code = 355) BLOOD UREA NITROGEN 22 mg/dL 7-21 H (BEAKER) (test code = 354) CREATININE (BEAKER) 0.97 mg/dL 0.57-1.25 Specimen slightly (test code = 358) hemolyzed GLUCOSE RANDOM 107 mg/dL 70-105 H (BEAKER) (test code = 652) CALCIUM (BEAKER) 8.6 mg/dL 8.4-10.2 (test code = 697) EGFR (BEAKER) (test INSUFFIC IENT CLINICAL code = 1092) DATA TO CALCULA TE ESTIMATED GFR. Grain Wafer Machine Operator ID - EDASICBC with platelet count + automated [id number] 05:26:00 Test Item Value Reference Range Interpretation Comments WBC (test code = 6690-2) 11.1 See_Comment H [A utomated message] The system [employer] generated this result transmitted ref erence range: 3.5 - 10 .5 K/L. The refe rence range was not u sed to interpret this result as normal/abnor mal. RBC (test code = 789-8) 4.76 See_Comment [Au tomated message] The system [employer] generated this result transmitted ref erence range: 4.63 - 6 .08 M/L. The refe rence range was not u sed to interpret this result as normal/abnor mal. MCHC (test code = 786-4) 32.8 See_Comment [A utomated message] The system [employer] generated this result transmitted ref erence range: 32.3 - 3 6.5 GM/DL. The refe rence range was not u sed to interpret this result as normal/abnor mal. Hematocrit (test code = 46.0 % 40.1-51 4544-3) MCV (test code = 787-2) 96.6 fL 79-92.2 H MCH (test code = 785-6) 31.7 pg 25.7-32.2 RDW (test code = 788-0) 13.6 % 11.6-14.4 Platelets (test code = 333 See_Comment [Aut omated message] 497-3) The system [employer] generated this result transmitted ref erence range: 150 - 45 0 K/CU MM. The referen ce range was not u sed to interpret this result as normal/abnor mal. MPV (test code = 9.0 fL 9.4-12.4 L 36279-1) nRBC (test code = 413) 0 See_Comment [Aut omated message] The system [employer] generated this result transmitted ref erence range: 0 - 0 /1 00 WBC. The refere nce range was not u sed to interpret this result as normal/abnor mal. % Neutros (test code = 60 % 429) % Lymphs (test code = 24 % 430) % Monos (test code = 9 % 431) % Eos (test code = 432) 6 % % Baso (test code = 437) 0 % # Neutros (test code = 6.68 See_Comment H [Aut omated message] 670) The system [employer] generated this result transmitted ref erence range: 1.78 - 5 .38 K/L. The refe rence range was not u sed to interpret this result as normal/abnor mal. # Lymphs (test code = 2.62 See_Comment [Auto mated message] 414) The system [employer] generated this result transmitted ref erence range: 1.32 - 3 .57 K/L. The refe rence range was not u sed to interpret this result as normal/abnor mal. # Monos (test code = 1.03 See_Comment H [Autom ated message] 415) The system [employer] generated this result transmitted ref erence range: 0.30 - 0 .82 K/L. The refe rence range was not u sed to interpret this result as normal/abnor mal. # Eos (test code = 416) 0.65 See_Comment H [Au tomated message] The system [employer] generated this result transmitted ref erence range: 0.04 - 0 .54 K/L. The refe rence range was not u sed to interpret this result as normal/abnor mal. # Baso (test code = 417) 0.04 See_Comment [A utomated message] The system [employer] generated this result transmitted ref erence range: 0.01 - 0 .08 K/L. The refe rence range was not u sed to interpret this result as normal/abnor mal. Immature 1 % 0-1 Granulocytes-Relative (test code = 2801) Lab Interpretation (test Abnormal code = 86782-8) [facility] W/PLT COUNT & AUTO [id number] 05:26:00 Test Item Value Reference Range Interpretation Comments WHITE BLOOD CELL COUNT (BEAKER) 11.1 K/ L 3.5-10.5 H (test code = 775) RED BLOOD CELL COUNT (BEAKER) 4.76 M/ L 4.63-6.08 (test code = 761) HEMOGLOBIN (BEAKER) (test code = 15.1 GM/DL 13.7-17.5 410) HEMATOCRIT (BEAKER) (test code = 46.0 % 40.1-51.0 411) MEAN CORPUSCULAR VOLUME (BEAKER) 96.6 fL 79.0-92.2 H (test code = 753) MEAN CORPUSCULAR HEMOGLOBIN 31.7 pg 25.7-32.2 (BEAKER) (test code = 751) MEAN CORPUSCULAR HEMOGLOBIN CONC 32.8 GM/DL 32.3-36.5 (BEAKER) (test code = 752) RED CELL DISTRIBUTION WIDTH 13.6 % 11.6-14.4 (BEAKER) (test code = 412) PLATELET COUNT (BEAKER) (test 333 K/CU MM 150-450 code = 756) MEAN PLATELET VOLUME (BEAKER) 9.0 fL 9.4-12.4 L (test code = 754) NUCLEATED RED BLOOD CELLS 0 /100 WBC 0-0 (BEAKER) (test code = 413) NEUTROPHILS RELATIVE PERCENT 60 % (BEAKER) (test code = 429) LYMPHOCYTES RELATIVE PERCENT 24 % (BEAKER) (test code = 430) MONOCYTES RELATIVE PERCENT 9 % (BEAKER) (test code = 431) EOSINOPHILS RELATIVE PERCENT 6 % (BEAKER) (test code = 432) BASOPHILS RELATIVE PERCENT 0 % (BEAKER) (test code = 437) NEUTROPHILS ABSOLUTE COUNT 6.68 K/ L 1.78-5.38 H (BEAKER) (test code = 670) LYMPHOCYTES ABSOLUTE COUNT 2.62 K/ L 1.32-3.57 (BEAKER) (test code = 414) MONOCYTES ABSOLUTE COUNT (BEAKER) 1.03 K/ L 0.30-0.82 H (test code = 415) EOSINOPHILS ABSOLUTE COUNT 0.65 K/ L 0.04-0.54 H (BEAKER) (test code = 416) BASOPHILS ABSOLUTE COUNT (BEAKER) 0.04 K/ L 0.01-0.08 (test code = 417) IMMATURE GRANULOCYTES-RELATIVE 1 % 0-1 PERCENT (BEAKER) (test code = 2801) BASIC METABOLIC [id number] 04:54:00 Test Item Value Reference Range Interpretation Comments SODIUM (BEAKER) (test 140 meq/L 136-145 code = 381) POTASSIUM (BEAKER) 4.0 meq/L 3.5-5.1 Specimen slightly (test code = 379) hemolyzed CHLORIDE (BEAKER) 104 meq/L 98-107 (test code = 382) CO2 (BEAKER) (test 27 meq/L 22-29 code = 355) BLOOD UREA NITROGEN 22 mg/dL 7-21 H (BEAKER) (test code = 354) CREATININE (BEAKER) 0.89 mg/dL 0.57-1.25 Specimen slightly (test code = 358) hemolyzed GLUCOSE RANDOM 94 mg/dL 70-105 (BEAKER) (test code = 652) CALCIUM (BEAKER) 8.2 mg/dL 8.4-10.2 L (test code = 697) EGFR (BEAKER) (test INSUFFIC IENT CLINICAL code = 1092) DATA TO CALCULA TE ESTIMATED GFR. Grain Wafer Machine Operator ID - EDASICBC W/PLT COUNT & AUTO [id number] 04:27:00 Test Item Value Reference Range Interpretation Comments WHITE BLOOD CELL COUNT (BEAKER) 9.0 K/ L 3.5-10.5 (test code = 775) RED BLOOD CELL COUNT (BEAKER) 4.55 M/ L 4.63-6.08 L (test code = 761) HEMOGLOBIN (BEAKER) (test code = 14.5 GM/DL 13.7-17.5 410) HEMATOCRIT (BEAKER) (test code = 43.2 % 40.1-51.0 411) MEAN CORPUSCULAR VOLUME (BEAKER) 94.9 fL 79.0-92.2 H (test code = 753) MEAN CORPUSCULAR HEMOGLOBIN 31.9 pg 25.7-32.2 (BEAKER) (test code = 751) MEAN CORPUSCULAR HEMOGLOBIN CONC 33.6 GM/DL 32.3-36.5 (BEAKER) (test code = 752) RED CELL DISTRIBUTION WIDTH 13.6 % 11.6-14.4 (BEAKER) (test code = 412) PLATELET COUNT (BEAKER) (test 314 K/CU MM 150-450 code = 756) MEAN PLATELET VOLUME (BEAKER) 8.8 fL 9.4-12.4 L (test code = 754) NUCLEATED RED BLOOD CELLS 0 /100 WBC 0-0 (BEAKER) (test code = 413) NEUTROPHILS RELATIVE PERCENT 60 % (BEAKER) (test code = 429) LYMPHOCYTES RELATIVE PERCENT 24 % (BEAKER) (test code = 430) MONOCYTES RELATIVE PERCENT 10 % (BEAKER) (test code = 431) EOSINOPHILS RELATIVE PERCENT 4 % (BEAKER) (test code = 432) BASOPHILS RELATIVE PERCENT 0 % (BEAKER) (test code = 437) NEUTROPHILS ABSOLUTE COUNT 5.40 K/ L 1.78-5.38 H (BEAKER) (test code = 670) LYMPHOCYTES ABSOLUTE COUNT 2.16 K/ L 1.32-3.57 (BEAKER) (test code = 414) MONOCYTES ABSOLUTE COUNT (BEAKER) 0.92 K/ L 0.30-0.82 H (test code = 415) EOSINOPHILS ABSOLUTE COUNT 0.38 K/ L 0.04-0.54 (BEAKER) (test code = 416) BASOPHILS ABSOLUTE COUNT (BEAKER) 0.04 K/ L 0.01-0.08 (test code = 417) IMMATURE GRANULOCYTES-RELATIVE 1 % 0-1 PERCENT (BEAKER) (test code = 2801) CT, BIOPSY, [id number] 17:10:00Reason for exam:->Right L1 vertebra, transverse process. spoke to Dr Salmon already this morning, [facility] 1940 Sex: MFINAL REPORT CT guided right L1 transverse process biopsy History: RightL1 vertebra, transverse process. Modality: CT, CT fluoroscopy Anesthesia: 1% lidocaine local Approach: Posterior percutaneous Consent: The risks, benefits, and alternatives to the procedure were discussed with the patient. The patient expressed understanding and informed written consent was obtained.Time out: A pre-procedure time out was performed in order to confirm the appropriate site of the procedure. Anesthesia: 50 mcg of fentanyl IV. Continuous monitoring was performed by the operating physician and radiology nursing throughout the procedure. Technique: This exam was performed according to our departmental dose optimization program which includes automated exposure control, adjustment ofthe mA and/or kV according to patient's size and/or use of iterative reconstructive technique. The patient was placed prone in the CT scanner. The lytic lesion in the right L1 transverse process was localized using CT and CT fluoroscopy. After the usual sterile preparation and application of local an esthesia, a 17-gauge introducer needle was advanced into the lytic lesion using CT guidance. Using i19-wekso Temno needle, four passes are made, yielding several cores. Disposition: The patient tolerated the procedure well, without immediate complications. The patient left CT in stable condition. Impression: 1. Technically successful CT guided core biopsy of right L1 transverse process. Signed: Michelle Salmon Verified Date/Time: 10/14/2020 17:10:31 Reading Location: [address] Consult Reading Room CT Biopsy/Aspiration/Injection 2020-10-14 17:10:00Interface, External Ris In - 10/14/2020 5:[address] guided right L1 transverse process biopsy History: Right L1 vertebra, transverse process. Modality: CT, CT fluoroscopy Anesthesia: 1% lidocaine local Approach: Posterior percutaneous Consent: The risks, benefits, and alternatives to the procedure were discussed with the patient. The patient expressed understanding and informed written consent was obtained. Time out: A pre-procedure time out was performed in order to confirm the appropriate site of the procedure. Anesthesia: 50 mcg of fentanyl IV. Continuous monitoring was performed by the operating physician and radiology nursing throughout the procedure. Technique: This exam was performed according to our departmental dose optimization program which includes automated exposure control, adjustment of the mA and/or kV according to patient's size and/or use of iterative reconstructive technique. The patient was placed prone in the CT scanner. The lytic lesion in the right L1 transverse process was localized using CT and CT fluoroscopy. After the usual sterile preparation and application of local anesthesia, a 17-gauge introducer needle was advanced into the lytic lesion using CT guidance. Using a 20-gauge Temno needle, four passes are made, yielding several cores. Disposition: The patient tolerated the procedure well, without immediate complications. The patient left CT in stable condition. Impression: 1. Technically successful CT guided core biopsy of right L1 transverse process. Signed: Michelle Salmon Verified Date/Time: 10/14/2020 17:10:31 Reading Location: [address] Ortho [facility]Asymptomatic ONLY)2020-10-14 09:59:00 Test Item Value Reference Range Interpretation Comments SARS-COV2/RT-PCR Negative Not Detected, (test code = Negative, See 75816-9) external report for linked test SARS-COV-2 [facility] PERFORMING LAB (test code = 25923-1) JONATHAN (test code = Negative results do not JONATHAN) preclude SARS-CoV-2 infection and should not be used as the sole basis for patient management decisions. Negative results must be combined with clinical observations, patient history, and epidemiological information. A false negative result may occur if a specimen is improperly collected, transported or handled. The limit of detection for this assay is 250 copies/mL. This SARS CoV-2 test is a rapid, real-time RT-PCR test intended for the qualitative detection of nucleic acid from SARS-CoV-2 in a nasopharyngeal swab specimen collected from individuals suspected of COVID-19 by their healthcare provider. This test has not been Food and Drug Administration (FDA) cleared or approved and has been authorized by FDA under an Emergency Use Authorization (EUA). This EUA will be effective until the declaration that circumstances exist justifying the authorization of the emergency use of in vitro diagnostic tests for detection and/or diagnosis of COVID-19 is terminated under Section 564(b)(2) of the Act or the EUA is revoked under Section 564(g) of the Act. Fact Sheet for Healthcare Providers:https://www.[employer]/Documents/Xper t%20Xpress%20SARS%20CoV- 2/Fact%20Sheets/302-3802 %46CTEG-TCD-9%20HEALTHCA RE%20PROVIDERS%20FACT%20 SHEET.pdf Fact Sheet for Healthcare Patients:https://www.[employer]/Documents/Xpert %20Xpress%20SARS%20CoV-2 /Fact%20Sheets/302-3801% 04YCPT-WWH-2%20PATIENT%2 0FACT%20SHEET.pdf Performing Laboratory:[facility] [place] [address] [facility])2020-10-14 09:59:00 Test Item Value Reference Range Interpretation Comments SARS-COV2/RT-PCR (test code Negative Not Detected, Negative, = 9089217) See external report for linked test SARS-COV-2 PERFORMING LAB [facility] (test code = 9252493) Negative results do not preclude SARS-CoV-2 infection and should not be used as the sole basis for patient management decisions. Negative results must be combined with clinical observations, patient history, and epidemiological information. A false negative result may occur if a specimen is improperly collected, transported or handled.The limit of detection for this assay is 250 copies/mL.This SARS CoV-2 test is a rapid, real-time RT-PCR test intended for the qualitative detection of nucleic acid from SARS-CoV-2 in a nasopharyngeal swab specimen collected from individuals suspected of COVID-19 by their healthcare provider.This test has not been Food and Drug Administration (FDA) cleared or approved and has been authorized by FDA under an Emergency Use Authorization (EUA). This EUA will be effective until the declaration that circumstances exist justifying the authorization of the emergency use of in vitro diagnostic tests for detection and/or diagnosis of COVID-19 is terminated under Section 564(b)(2) of the Act or the EUA is revoked under Section 564(g) of the Act.Fact Sheet for Healthcare Pro viders:https://www.[employer]/Documents/Xpert%20Xpress%20SARS%20CoV-2/Fact%20Sh eets/302-3802%25XOWG-HKH-5%20HEALTHCARE%20PROVIDERS%20FACT%20SHEET.pdfFact Sheet for Healthcare Patients:https://www.[employer]/Documents/Xpert%20Xpress%20SARS%20CoV-2/Fact%20Sheets/302-3801%20SARS-COV -2%20PATIENT%20FACT%20SHEET.pdfPerforming Laboratory:[place] [address], [place] [address] METABOLIC [id number] 09:07:00 Test Item Value Reference Range Interpretation Comments SODIUM (BEAKER) (test 138 meq/L 136-145 code = 381) POTASSIUM (BEAKER) 4.0 meq/L 3.5-5.1 (test code = 379) CHLORIDE (BEAKER) 104 meq/L 98-107 (test code = 382) CO2 (BEAKER) (test 23 meq/L 22-29 code = 355) BLOOD UREA NITROGEN 26 mg/dL 7-21 H (BEAKER) (test code = 354) CREATININE (BEAKER) 0.84 mg/dL 0.57-1.25 (test code = 358) GLUCOSE RANDOM 113 mg/dL 70-105 H (BEAKER) (test code = 652) CALCIUM (BEAKER) 8.5 mg/dL 8.4-10.2 (test code = 697) EGFR (BEAKER) (test INSUFFIC IENT CLINICAL code = 1092) DATA TO CALCULA TE ESTIMATED GFR. Grain Wa[employer] Machine Operator ID - EMERSONVitamin B12 and [id number] 08:38:00 Test Item Value Reference Range Interpretation Comments Vitamin B12 (test 606 pg/mL 213-816 code = 2132-9) Folate (test code = 7.50 ng/mL See_Comment [Automa lukasz 2284-8) message] The system which generated this result transmit lukasz reference range : >=7.00. The reference range was not used to interpret this result as normal/abnormal . JONATHAN (test code = JONATHAN) Grain Wafer Machine Operator ID - NAYELI L Lab Interpretation Normal (test code = 64277-6) [facility] [id number] 08:38:00 Test Item Value Reference Range Interpretation Comments VITAMIN B12 (BEAKER) 606 pg/mL 213-816 (test code = 774) FOLATE (BEAKER) 7.50 ng/mL See_Comment [Automated message] (test code = 362) The system which generated this result transmitted ref erence range: >=7.00. The reference range was not used to interpr et this result as normal/abnormal . Grain Wafer Machine Operator ID - NAYELI LTSH/Free T4 If [id number] 06:13:00 Test Item Value Reference Range Interpretation Comments TSH (test code = 1.981 See_Comment [Automated 02024-6) message] The system which generated this result transmit lukasz reference range : 0.350 - 4.940 uIU/mL. The reference range was not used to interpret this result as normal/abnormal . JONATHAN (test code = JONATHAN) Grain Wafer Machine Operator ID - CHRIS M Lab Interpretation Normal (test code = 56582-7) [facility] T4 IF [id number] 06:13:00 Test Item Value Reference Range Interpretation Comments THYROID STIMULATING HORMONE 1.981 uIU/mL 0.350-4.940 (BEAKER) (test code = 772) Grain Wafer Machine Operator ID - CHRIS [facility] W/PLT COUNT & AUTO [id number] 05:24:00 Test Item Value Reference Range Interpretation Comments WHITE BLOOD CELL COUNT (BEAKER) 10.2 K/ L 3.5-10.5 (test code = 775) RED BLOOD CELL COUNT (BEAKER) 4.28 M/ L 4.63-6.08 L (test code = 761) HEMOGLOBIN (BEAKER) (test code = 14.1 GM/DL 13.7-17.5 410) HEMATOCRIT (BEAKER) (test code = 40.9 % 40.1-51.0 411) MEAN CORPUSCULAR VOLUME (BEAKER) 95.6 fL 79.0-92.2 H (test code = 753) MEAN CORPUSCULAR HEMOGLOBIN 32.9 pg 25.7-32.2 H (BEAKER) (test code = 751) MEAN CORPUSCULAR HEMOGLOBIN CONC 34.5 GM/DL 32.3-36.5 (BEAKER) (test code = 752) RED CELL DISTRIBUTION WIDTH 13.9 % 11.6-14.4 (BEAKER) (test code = 412) PLATELET COUNT (BEAKER) (test 335 K/CU MM 150-450 code = 756) MEAN PLATELET VOLUME (BEAKER) 9.2 fL 9.4-12.4 L (test code = 754) NUCLEATED RED BLOOD CELLS 0 /100 WBC 0-0 (BEAKER) (test code = 413) NEUTROPHILS RELATIVE PERCENT 66 % (BEAKER) (test code = 429) LYMPHOCYTES RELATIVE PERCENT 23 % (BEAKER) (test code = 430) MONOCYTES RELATIVE PERCENT 9 % (BEAKER) (test code = 431) EOSINOPHILS RELATIVE PERCENT 1 % (BEAKER) (test code = 432) BASOPHILS RELATIVE PERCENT 0 % (BEAKER) (test code = 437) NEUTROPHILS ABSOLUTE COUNT 6.75 K/ L 1.78-5.38 H (BEAKER) (test code = 670) LYMPHOCYTES ABSOLUTE COUNT 2.36 K/ L 1.32-3.57 (BEAKER) (test code = 414) MONOCYTES ABSOLUTE COUNT (BEAKER) 0.95 K/ L 0.30-0.82 H (test code = 415) EOSINOPHILS ABSOLUTE COUNT 0.10 K/ L 0.04-0.54 (BEAKER) (test code = 416) BASOPHILS ABSOLUTE COUNT (BEAKER) 0.01 K/ L 0.01-0.08 (test code = 417) IMMATURE GRANULOCYTES-RELATIVE 0 % 0-1 PERCENT (BEAKER) (test code = 2801) Urinalysis w/Microscopic + Reflex to [id number] 03:19:00 Test Item Value Reference Range Interpretation Comments Color, UA (test Light Yellow code = 5778-6) Clarity, UA (test Clear code = 5767-9) Specific [place], 1.033 1.001-1.035 UA (test code = 5811-5) pH, UA (test code 5.5 5.0-8.0 = 5803-2) Protein, UA (test Negative Negative code = 85728-6) Glucose, UA (test Negative Negative code = 365) Ketones, UA (test Negative Negative code = 2514-8) Bilirubin, UA Negative Negative (test code = 32824-3) Blood, UA (test Negative Negative code = 70942-5) Nitrite, UA (test Negative Negative code = 5802-4) Leukocytes, UA Negative Negative (test code = 5799-2) Urobilinogen, UA 0.2 mg/dL 0.2-1 (test code = 94980-4) RBC, UA (test <1 See_Comment [Automated me ssage] code = 95040-3) The system [facility] generated this result transmit lukasz reference range : /HPF. The refer ence range was not u sed to interpret th is result as normal/abnormal . WBC, UA (test <1 See_Comment [Automated me ssage] code = 5821-4) The system [facility] generated this result transmit lukasz reference range : /HPF. The refer ence range was not u sed to interpret th is result as normal/abnormal . Squam Epithel, UA <1 See_Comment [Automate d message] (test code = The system [facility] 17409-9) generated this result transmit lukasz reference range : /HPF. The refer ence range was not u sed to interpret th is result as normal/abnormal . Specimen Source (test code = 2795) JONATHAN (test code = Grain Wafer Machine Operator ID - JONATHAN) [auto]Grain Wafer Machine Operator ID - tech [facility] [id number] 03:19:00 Test Item Value Reference Range Interpretation Comments COLOR (BEAKER) (test code = 470) Light Yellow CLARITY (BEAKER) (test code = Clear 469) SPECIFIC GRAVITY UA (BEAKER) 1.033 1.001-1.035 (test code = 468) PH UA (BEAKER) (test code = 467) 5.5 5.0-8.0 PROTEIN UA (BEAKER) (test code = Negative Negative 464) GLUCOSE UA (BEAKER) (test code = Negative Negative 365) KETONES UA (BEAKER) (test code = Negative Negative 371) BILIRUBIN UA (BEAKER) (test code Negative Negative = 462) BLOOD UA (BEAKER) (test code = Negative Negative 461) NITRITE UA (BEAKER) (test code = Negative Negative 465) LEUKOCYTE ESTERASE UA (BEAKER) Negative Negative (test code = 466) UROBILINOGEN UA (BEAKER) (test 0.2 mg/dL 0.2-1.0 code = 463) RBC UA (BEAKER) (test code = < /HPF 519) WBC UA (BEAKER) (test code = < /HPF 520) SQUAMOUS EPITHELIAL (BEAKER) < /HPF (test code = 516) SOURCE(BEAKER) (test code = 2795) Grain Wafer Machine Operator ID - [auto]Grain Wafer Machine Operator ID - techCT, SPINE, LUMBAR, W/ WITHOUT CONTRAST 2020-10-14 01:03:00Unlisted Reason for Exam - Click Yes and Enter Reason Below->NoPORTERVIL[facility]Name[facility] : 1940 Sex: MFINAL REPORT CT Lumbar spine with and without contrast CLINICAL HISTORY: Back pain or radiculopathy, cancer or infection suspected TECHNIQUE: Contiguous noncontrast axial images of the lumbar spine with and without contrast with coronal and sagittal reformations to assess the alignment. This exam was performed according to the departmental dose optimization program which includes automated exposure control, adjustment of the mA and/or kV according to the patient size, and/or use of an iterative reconstruction technique. COMPARISON: None FINDINGS:Diminutive ribs at T12. The last well-formed disc is designated as L5-S1 for the purposes of this report. Vertebral bodies were numbered using this convention. Sacralization of L5. No lumbar spine or sacral fractures are evident. There is reversal the normal lumbar lordosis centered at L1-2. Grade 1 anterolisthesis of T10 on T11 and T11 on T12. Slight retrolisthesis of L1 on L2 and L2 on L3. Postsurgical changes of a prior lami nectomy at left L4-5. Vertebral body heights are preserved. There is a lytic lesion in the right transverse process of L1. Lytic lesion in the left transverse process of T11 vertebral body. Additionally there is lucency with soft tissue in the spinous processes of L5, possibly postsurgical however dest ructive osseous lesion can have this appearance. Multilevel degenerative of the lumbar spine, worstat L1-L2 three resulting in at least mild spinal canal stenosis. Multilevel neural foraminal stenosis, worse at L1-2 and L2-3.Bilateral lower lobe dependent atelectasis. 1.8 cm indeterminate right adrenal nodule. Indeterminate right upper pole 1.7 cm hypodensity. Multiple additional right renal cysts.Prostate gland is heterogeneous and enlarged. Diverticulosis of the large bowel without evidence of visualized diverticulitis. Atherosclerotic calcifications of the normal caliber abdominal aorta. IMPRESSION: Diminutive ribs at T12. The last well-formed disc is designated as L5-S1 for the purposes of this report. No lumbar fracture or dislocation. Lytic lesion involving the right transverse process of L1 and left transverse process of T11, most consistent with metastatic disease. Additionally since the in the spinous processes of L5 may be postsurgical however indeterminate. Multilevel degenera tive of the lumbar spine as above. 1.8 cm indeterminate right adrenal nodule. Indeterminate right upper pole 1.7 cm renal lesion. Enlarged heterogeneous prostate gland. Signed: Justine Paz [facility] Verified Date/Time: 10/14/2020 01:03:04 [facility] & with IV [id number] 01:03:00Interface, External Ris In - 10/14/2020 1:[address] Lumbar spine with and without contrast CLINICAL HISTORY: Back pain or radiculopathy, cancer or infection suspected TECHNIQUE: Contiguous noncontrast axial images of the lumbar spine with and without contrast with coronal and sagittal reformations to assess the alignment. This exam was performed according to theidpartmental dose optimization program which includes automated exposure control, adjustment of the mA and/or kV according to the patient size, and/or use of an iterative reconstruction technique. COMPARISON: None FINDINGS:Diminutive ribs at T12. The last well-formed disc is designated as L5-S1 for the purposes of this report. Vertebral bodies were numbered using this convention. Sacralization of L5.No lumbar spine or sacral fractures are evident. There is reversal the normal lumbar lordosis centered at L1-2. Grade 1 anterolisthesis of T10 on T11 and T11 on T12. Slight retrolisthesis of L1 on L2 and L2 on L3. Postsurgical changes of a prior laminectomy at left L4-5. Vertebral body heights are preserved. There is a lytic lesion in the right transverse process of L1. Lytic lesion in the left transverse process of T11 vertebral body. Additionally there is lucency with soft tissue in the spinous processes of L5, possibly postsurgical however destructive osseous lesion can have this appearance. Multilevel degenerative of the lumbar spine, worst at L1- L2 three resulting in at least mild spinal canal stenosis. Multilevel neural foraminal stenosis, worse at L1-2 and L2-3.Bilateral lower lobe dependent atelectasis. 1.8 cm indeterminate right adrenal nodule. Indeterminate right upper pole 1.7 cm hypodensity. Multiple additional right renal cysts. Prostate gland is heterogeneous and enlarged. Diverticulosis of the large bowel without evidence of visualized diverticulitis. Atherosclerotic calcifications of the normal caliber abdominal aorta. IMPRESSION: Diminutive ribs at T12. The last well-formed disc is designated as L5-S1 for the purposes of this report. No lumbar fracture or dislocation. Lytic lesion involving the right transverse process of L1 and left transverse process of T11, most consistent with metastatic disease. Additionally since the in the spinous processes of L5 may be postsurgical however indeterminate. Multilevel degenerative of the lumbar spine as above. 1.8 cm indeterminate right adrenal nodule. Indeterminate right upper pole 1.7 cm renal lesion. Enlarged heterogeneous prostate gland. Signed: Justine Paz [facility] Verified Date/Time: 10/14/2020 01:03:04 Eli ctronically signed by: JUSTINE PAZ MD on 10/14/2020 01:03 [facility]CT, [facility]RAIN, WITHOUT [id number] 00:25:00Reason for exam:->ALTERED MENTAL STATUSWhat is the patient's sedation requirement?- >No SedationHUNTINGTON [facility]ENTERName: [facility] : 1940 Sex: MFINAL REPORT CLINICAL HISTORY: Confusion COMPARISON: None Multiple axialimages of the brain were performed without IV contrast. This exam was performed according to our departmental dose-optimization program, which includes automated exposure control, adjustment of the mA and/or kV according to patient size and/or use of the iterative reconstruction technique. Intracrania l hemorrhage: None. Brain parenchyma: Diffuse parenchymal volume loss. Scattered subcortical and periventricular non-specific white matter hypodensities suggestive of microangiopathy. Ventricles, sulciand basal cisterns: Normal for age. Extra-axial spaces: Normal. Midline shift: None. Visualized vasculature: Atherosclerotic calcifications. Cranium: No significant findings. Skullbase: No significant findings. Paranasal sinuses: No significant findings. IMPRESSION: No definite acute intracranial abnormality. There is no mass lesion, intracranial hemorrhage or CT evidence of acute stroke. Microvascular and involutional changes. Please note that CT is insensitive in the detection of acute ischemia. Signed: Elly Jaimes [facility] Verified Date/Time: 10/14/2020 00:25:28 [facility] brain without IV [id number] 00:25:00Interface, External Ris In - 10/14/2020 12:27 AM CDTFINAL REPORT CLINICAL HISTORY: Confusion COMPARISON: None Multiple axial images of the brain were performed without IV contrast. This exam was performed according to our departmental dose- optimization program, which includes automated exposure control, adjustment of the mA and/or kV according to patient size and/or use of theiterative reconstruction technique. Intracranial hemorrhage: None. Brain parenchyma: Diffuse parenchymal volume loss. Scattered subcortical and periventricular non- specific white matter hypodensities suggestive of microangiopathy. Ventricles, sulci and basal cisterns: Normal for age. Extra-axial spaces: Normal. Midline shift: None. Visualized vasculature: Atherosclerotic calcifications. Cranium: No significant findings. Skullbase: No significant findings. Paranasal sinuses: No significant findings.IMPRESSION: No definite acute intracranial abnormality. There is no mass lesion, intracranial hemorrhage or CT evidence of acute stroke. Microvascular and involutional changes. Please note that CT is insensitive in the detection of acute ischemia. Signed: Elly Jaimes [facility] Verified Date/Time: 10/14/2020 00:25:28 [facility] HospitalABORH, [id number] 21:51:00 Test Item Value Reference Range Interpretation Comments ABO Grouping (test code = 2588) A Rh Factor (test code = 2589) POS [facility]Type and screen, automated ([facility] and [facility] only) 2020-10-13 18:31:00 Test Item Value Reference Range Interpretation Comments Ab Scrn (test code = 890-4) NEGATIVE echo1 [facility] HospitalComprehensive metabolic [id number] 18:00:00 Test Item Value Reference Range Interpretation Comments Protein, Total (test 6.8 See_Comment [Autom ated code = 2885-2) message] The system which generated this result transmit lukasz reference range : 6.0 - 8.3 gm/dL . The reference range was not u sed to interpret th is result as normal/abnormal . Albumin (test code = 3.8 g/dL 3.5-5 03048-4) Alkaline Phosphatase 76 U/L 40-150 (test code = 6768-6) Total Bilirubin (test 0.5 mg/dL 0.2-1.2 code = 1975-2) Sodium (test code = 141 meq/L 657-322 4394-2) Potassium (test code 4.7 meq/L 3.5-5.1 = 2823-3) Chloride (test code = 105 meq/L 98-107 2074-0) CO2 (test code = 27 meq/L 22-29 2027-) BUN (test code = 26 mg/dL 7-21 H 3094-0) Creatinine (test code 0.98 mg/dL 0.57-1.25 = 2160-0) Glucose (test code = 112 mg/dL 70-105 H 2345-7) Calcium (test code = 8.9 mg/dL 8.4-10.2 68928-1) AST (test code = 14 U/L 5-34 1920-8) ALT (test code = 17 U/L 6-55 1742-6) EGFR (test code = [place] [address]-3) CLINICAL DATA T O CALCULATE ESTIMATED GFR. JONATHAN (test code = JONATHAN) Grain Wafer Machine Operator ID - BS Lab Interpretation Abnormal (test code = 88154-7) [facility] HospitalCOMPREHENSIVE METABOLIC [id number] 18:00:00 Test Item Value Reference Range Interpretation Comments TOTAL PROTEIN 6.8 gm/dL 6.0-8.3 (BEAKER) (test code = 770) ALBUMIN (BEAKER) 3.8 g/dL 3.5-5.0 (test code = 1145) ALKALINE PHOSPHATASE 76 U/L 40-150 (BEAKER) (test code = 346) BILIRUBIN TOTAL 0.5 mg/dL 0.2-1.2 (BEAKER) (test code = 377) SODIUM (BEAKER) (test 141 meq/L 136-145 code = 381) POTASSIUM (BEAKER) 4.7 meq/L 3.5-5.1 (test code = 379) CHLORIDE (BEAKER) 105 meq/L 98-107 (test code = 382) CO2 (BEAKER) (test 27 meq/L 22-29 code = 355) BLOOD UREA NITROGEN 26 mg/dL 7-21 H (BEAKER) (test code = 354) CREATININE (BEAKER) 0.98 mg/dL 0.57-1.25 (test code = 358) GLUCOSE RANDOM 112 mg/dL 70-105 H (BEAKER) (test code = 652) CALCIUM (BEAKER) 8.9 mg/dL 8.4-10.2 (test code = 697) AST (SGOT) (BEAKER) 14 U/L 5-34 (test code = 353) ALT (SGPT) (BEAKER) 17 U/L 6-55 (test code = 347) EGFR (BEAKER) (test INSUFFIC IENT CLINICAL code = 1092) DATA TO CALCULA TE ESTIMATED GFR. Grain Wafer Machine Operator ID - [id number] 17:52:00 Test Item Value Reference Interpretation Comments Range Protime (test code = 12.9 See_Comment [Autom ated 5902-2) message] The system which generated this result transmitted reference range : 11.9 - 14.2 seconds. The reference range was not used to interpret this result as normal/abnormal . INR (test code = 1.00 See_Comment [Automated 8121-6) message] The system which generated this result transmitted reference range : <=5.90. The reference range was not used to interpret this result as normal/abnormal . PTT (test code = 27.0 See_Comment [Automated 44862-5) message] The system which generated this result transmitted reference range : 22.5 - 36.0 seconds. The reference range was not used to interpret this result as normal/abnormal . JONATHAN (test code = Effective 11/27/2018: JONATHAN) PT Reference Range ChangeNew: 11.9-14.2 Previous: 11.7-14.7 RECOMMENDED COUMADIN/WARFARIN INR THERAPY RANGESSTANDARD DOSE: 2.0-3.0 Includes: PROPHYLAXIS for venous thrombosis, systemic embolization; TREATMENT for venous thrombosis and/or pulmonary embolus.HIGH RISK: Target INR is 2.5-3.5 for patients wiht mechanical heart valves. Lab Interpretation Normal (test code = 67101-8) [facility] HospitalPT/[id number] 17:52:00 Test Item Value Reference Range Interpretation Comments PROTIME (BEAKER) (test 12.9 seconds 11.9-14.2 code = 759) INR (BEAKER) (test 1.00 See_Comment [Automat ed code = 370) message] The sy stem which generated this result transmitted reference range : <=5.90. The reference range was not used to interpret this result as normal/abnormal . PARTIAL THROMBOPLASTIN 27.0 seconds 22.5-36.0 TIME (BEAKER) (test code = 760) Effective 11/27/2018: PT Reference Range ChangeNew: 11.9-14.2 Previous: 11.7- 14.7RECOMMENDED COUMADIN/WARFARIN INR THERAPY RANGESSTANDARD DOSE: 2.0-3.0 Includes: PROPHYLAXIS for venous thrombosis, systemic embolization; TREATMENT for venous thrombosis and/or pulmonary embolus.HIGH RISK: Target INR is2.5-3.5 for patients wiht mechanical heart valves.CBC W/PLT COUNT & AUTO [id number] 17:49:00 Test Item Value Reference Range Interpretation Comments WHITE BLOOD CELL COUNT (BEAKER) 11.3 K/ L 3.5-10.5 H (test code = 775) RED BLOOD CELL COUNT (BEAKER) 4.46 M/ L 4.63-6.08 L (test code = 761) HEMOGLOBIN (BEAKER) (test code = 14.2 GM/DL 13.7-17.5 410) HEMATOCRIT (BEAKER) (test code = 43.4 % 40.1-51.0 411) MEAN CORPUSCULAR VOLUME (BEAKER) 97.3 fL 79.0-92.2 H (test code = 753) MEAN CORPUSCULAR HEMOGLOBIN 31.8 pg 25.7-32.2 (BEAKER) (test code = 751) MEAN CORPUSCULAR HEMOGLOBIN CONC 32.7 GM/DL 32.3-36.5 (BEAKER) (test code = 752) RED CELL DISTRIBUTION WIDTH 14.0 % 11.6-14.4 (BEAKER) (test code = 412) PLATELET COUNT (BEAKER) (test 317 K/CU MM 150-450 code = 756) MEAN PLATELET VOLUME (BEAKER) 8.7 fL 9.4-12.4 L (test code = 754) NUCLEATED RED BLOOD CELLS 0 /100 WBC 0-0 (BEAKER) (test code = 413) NEUTROPHILS RELATIVE PERCENT 84 % (BEAKER) (test code = 429) LYMPHOCYTES RELATIVE PERCENT 11 % (BEAKER) (test code = 430) MONOCYTES RELATIVE PERCENT 5 % (BEAKER) (test code = 431) EOSINOPHILS RELATIVE PERCENT 0 % (BEAKER) (test code = 432) BASOPHILS RELATIVE PERCENT 0 % (BEAKER) (test code = 437) NEUTROPHILS ABSOLUTE COUNT 9.44 K/ L 1.78-5.38 H (BEAKER) (test code = 670) LYMPHOCYTES ABSOLUTE COUNT 1.24 K/ L 1.32-3.57 L (BEAKER) (test code = 414) MONOCYTES ABSOLUTE COUNT (BEAKER) 0.52 K/ L 0.30-0.82 (test code = 415) EOSINOPHILS ABSOLUTE COUNT 0.00 K/ L 0.04-0.54 L (BEAKER) (test code = 416) BASOPHILS ABSOLUTE COUNT (BEAKER) 0.02 K/ L 0.01-0.08 (test code = 417) IMMATURE GRANULOCYTES-RELATIVE 1 % 0-1 PERCENT (BEAKER) (test code = 2801) - XR FLUOROSCOPY 0-60 [id number] 12:24:00 Name: DONNA RACHEL II [facility] : 1940 Age/S: 78 / M [id number] Unit #: [id number] Loc: [place] [address] Phys: Joe Quinn MD Acct: [id number] Dis Date: Status: REG [facility] PHONE #: [phone] Exam Date: 04/11/2019 0900 FAX #: Reason: LASER LIT HOTRIPSY EXAMS: CPT: [id number] XR FLUOROSCOPY 0-60 MIN 22979 Fluoro Time: 29 SEC DAP (Gy m2): Air Kerma (mGy): Examination: Operative fluoroscopy Location code: S17 Comparison: None Discussion: Clinical history is remarkable for laser lithotripsy. 29.1 seconds fluoroscopic time is utilized. There is retrograde injection of the left ureter and collecting system with subsequent placement of a ureteric stent. Mild left hydronephrosis is present. Impression: Please refer to the operative report. at 1224 Reported and signed by: Cristofer Winter M.D. CC: Carlos Zavaleta Jr, MD; Joe Quinn MD PAGE1 Signed Report Name: DONNA RACHEL II [facility] : 1940 Age/S: 78 / M [address] Unit #: [id number] Loc: [place] [address] Phys: Joe Quinn MD Acct: [id number] Dis Date: Status: REG [facility] PHONE #: [phone] Exam Date: 04/11/2019 0900 FAX #: Reason: LASER LITHOTRIPSY EXAMS: CPT: [id number] XR FLUOROSCOPY 0-60 MIN 81191 Fluoro Time: 29 SEC DAP (Gy m2): Air Kerma (mGy): <Continued> Technologist: RT Horace(R) Trnscb Date/Time: 04/11/2019 (1224) [email or web address] Orig Print D/T: S: 04/11/2019 (9594) PAGE 2 Signed Report- XR FLUOROSCOPY 0-60 [id number] 16:33:00 Name: DONNA RACHEL II [facility] : 1940 Age/S: 78 / M [address] Unit #: [id number] Loc: [place] [address] Phys: Joe Quinn MD Acct: [id number] Dis Date: Status: REG [facility] PHONE #: [phone] Exam Date: 03/21/2019 1519 FAX #: Reason: CYSTOSCOPY RETRO PYELOGRAM LASER LITHOTRIPSY EXAMS: CPT: [id number] XR FLUOROSCOPY 0-60 MIN 60285 Fluoro Time: 43 SEC DAP (Gy m2): Air Kerma (mGy): Location: C3 Study: Intraoperative fluoroscopic images. Comparison: None FINDINGS/ IMPRESSION: Intraoperative fluoroscopic images of retrograde pyelogram was performed.Filling defects are seen within the right proximal ureter and right renal pelvis. Please note that I was not present for this procedure. Please refer to the operative notes for further details. Fluoroscopy time: 43.3 seconds. Total cumulative dose: 9.89 mGy. at 1633 Reported and signed by: Rajesh Goins M.D. CC: Carlos Zavaleta Jr, MD; Joe Quinn MD PAGE 1 Signed Report Name: DONNA RACHEL II [facility] : 1940 Age/S: 78 / M [address] Unit #: [id number] Loc: [place] [address] Phys: Joe Quinn MD Acct: [id number] Dis Date: Status: REG [facility] PHONE #: [phone] Exam Date: 03/21/2019 1511 FAX #: Reason: CYSTOSCOPY RETRO PYELOGRAM LASER LITHOTRIPSY EXAMS: CPT: [id number] XR FLUOROSCOPY0-60 MIN 87957 Fluoro Time: 43 SEC DAP (Gy m2): Air Kerma (mGy): <Continued> Technologist: Florencia Weston RT(R) Trnmnb Date/Time: 03/21/2019 (3705) [email or web address] Orig Print D/T: S: 03/21/2019 (9341) PAGE 2 Signed Report
[2020-12-28 22:04] LABS: Absolute Lymphocytes (CBC) 0.5 K/uL (0.7-4.9); Basophils % 0.3 % (0-1.3); Hematocrit 33.3 % (39.6-49.0); Lymphocytes % 9.5 % (15.3-44.8); MPV 7.3 fL (7.6-11.3); RBC Red Blood Cell Count 3.46 M/uL (4.33-5.43)
[2020-12-28 22:08] LABS: Protime INR 1.02
[2020-12-28] MEDS ORDERED: ONDANSETRON 4 MG/2 ML VIAL ONE (22:13)
[2020-12-28] MEDS ORDERED: NA CHLORIDE 0.9% 1,000 ML ONE (22:13)
[2020-12-28 22:29] LABS: Albumin 2.5 g/dL (3.4-5.0); Bilirubin Direct 0.2 mg/dL (0-0.2); Bilirubin Total 0.6 mg/dL (0.2-1.0); CKMB Creatine Kinase MB 2.1 ng/mL (1.0-3.6); Potassium 3.8 mmol/L (3.5-5.1); Protein, Total 5.4 g/dL (6.4-8.2)
[2020-12-28 22:30] LABS: C-Reactive Protein 88.8 mg/L (<3.00); Troponin (Emerg Dept Use Only) 0.06 ng/mL (0.0-0.045)
--- NOTE | 2020-12-28 23:26 | ER ---
Nurse's Notes [facility] Name: Edgar Lockwood II Age: 80 yrs Sex: Male : 1940 Arrival Date: 12/28/2020 Time: 21:29 Bed 13 Private MD: Diagnosis: Nausea with vomiting, unspecified;Altered mental status, unspecified Presentation: 12/28 21:37 Chief complaint: EMS states: Pt BIB EMS from home for c/o fever, generalized weakness, ad5 n/v x 2 days. 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 Pt YAVAPAI-APACHE, states "ask my " when asked regarding pmh or last chemo tx. Answers questions appropriately otherwise, states mild headache, but denies other s/s. Coronavirus screen: pt febrile en route to ED, 99.0 F oral temp obtained in ED upon arrival; denies SOB, cough or other related s/s. Ebola Screen: No symptoms or risks identified at this time. No acute neurological deficit is noted. Initial Sepsis Screen: Does the patient meet any 2 criteria? No. Patient's initial sepsis screen is negative. Does the patient have a suspected source of infection? No. Patient's initial sepsis screen is negative. Risk Assessment: Do you want to hurt yourself or someone else? Patient reports no desire to harm self or others. Onset of symptoms is unknown. 21:37 Method Of Arrival: EMS ad5 21:37 Acuity: CLINT 3 ad5 Triage Assessment: 21:44 General: Appears in no apparent distress. Behavior is calm, cooperative. Pain: ad5 Complains of pain in headache. Neuro: Level of Consciousness is awake, alert, obeys commands, Oriented to person, place, situation, Weakness Speech is normal, Facial symmetry appears normal, Pupils are Pupil Size: R eye 2mm, L eye 3mm; reactive belia Intact. Neuro: Reports headache. Cardiovascular: Heart tones present Capillary refill < 3 seconds Patient's skin is warm and dry. Pulses are all present. Respiratory: Airway is patent Respiratory effort is even, unlabored, Respiratory pattern is regular, symmetrical. GI: Parent/caregiver reports the patient having nausea. : No deficits noted. No signs and/or symptoms were reported regarding the genitourinary system. Derm: Skin is pink, warm \\T\\ dry. Musculoskeletal: Capillary refill < 3 seconds. Historical: - Allergies: 21:40 NKDA; ad5 - Home Meds: 21:40 Amiodarone Oral [Active]; hydrocodone [Active]; Morphine Oral [Active]; Dexamethasone ad5 Oral [Active]; trazodone Oral [Active]; Zofran Oral [Active]; - PMHx: 21:40 Atrial Fib; Hyperlipidemia; lung cancer; ad5 - Immunization history:: Adult Immunizations unknown. - Social history:: Smoking status: unknown. - Family history:: not pertinent. Screenin:47 Abuse screen: Denies threats or abuse. Denies injuries from another. Nutritional ad5 screening: No deficits noted. Tuberculosis screening: No symptoms or risk factors identified. Fall Risk Fall in past 12 months (25 points). Secondary diagnosis (15 points) IV access (20 points). Ambulatory Aid- None/Bed Rest/Nurse Assist (0 pts). Gait- Weak (10 pts.). Mental Status- Overestimates/Forgets Limitations (15 pts.). Total Li Fall Scale indicates High Risk Score (45 or more points). Fall prevention measures have been instituted. Side Rails Up X 2 Frequent Obs/Assessments Occuring Family Present and informed to notify staff if the need to leave the bedside As available patient and family educated on Fall Prevention Program and Strategies. Assessment: 21:47 Reassessment: See triage note for student teacher. ad5 22:36 Reassessment: Patient appears in no apparent distress at this time. No changes from ad5 previously documented assessment. Patient is alert, oriented x 3, equal unlabored respirations, skin warm/dry/pink. 23:47 Reassessment: Patient appears in no apparent distress at this time. No changes from ad5 previously documented assessment. Patient and/or family updated on plan of care and expected duration. Pain level reassessed. 12/29 00:49 Reassessment: Pt moved to hospital bed, repositioned for comfort. Denies c/o at this ad5 time. S.O. remains at bedside. VSS. Resp even/unlabored. NAD noted, will continue to monitor. 08:57 Reassessment: PT ADMITTED. bp Vital Signs: 12/28 21:37 BP 121 / 63; Pulse 64; Resp 17 S; Temp 99.0; Pulse Ox 94% on R/A; Weight 70.31 kg; ad5 Height 5 ft. 9 in. (175.26 cm); Pain 3/10; 22:36 BP 111 / 67; Pulse 56; Resp 18 S; Pulse Ox 93% ; ad5 23:47 BP 95 / 64; Pulse 54; Resp 18 S; Pulse Ox 95% on R/A; ad5 21:37 Body Mass Index 22.89 (70.31 kg, 175.26 cm) ad5 ED Course: 21:29 Patient arrived in ED. cf2 21:34 Antonietta Vogel MD is Attending Physician. ma2 21:37 Jeremiah Nam is Primary Nurse. ad5 21:40 Triage completed. ad5 21:47 Arm band placed on. ad5 21:48 No provider procedures requiring assistance completed. Inserted saline lock: 20 gauge ad5 in right antecubital area, using aseptic technique. Blood collected. Maintain EMS IV. Dressing intact. Good blood return noted. Site clean \\T\\ dry. Gauge \\T\\ site: 20g L AC. 21:49 Patient has correct armband on for positive identification. Placed in gown. Bed in low ad5 position. Call light in reach. Side rails up X2. Adult w/ patient. secured entrance monitor on. Pulse ox on. NIBP on. Door closed. Noise minimized. sheet provided Head of bed elevated. 21:50 CT Head Brain wo Cont Sent. ad5 21:58 CT Head Brain wo Cont In Process Unspecified. EDMS 22:13 Chest Single View XRAY In Process Unspecified. EDMS 23:06 Amylase, Serum Sent. ad5 23:06 Basic Metabolic Panel Sent. ad5 23:06 Blood Culture Adult (2) Sent. ad5 23:06 C-Reactive Protein Sent. ad5 23:25 Delifno Landeros is Hospitalizing Provider. ma2 12/29 01:00 Patient admitted, IV remains in place. ad5 07:32 Primary Nurse role handed off by Jeremiah Nam bd 08:57 Loki Melchor, RN is Primary Nurse. bp Administered Medications: 12/28 22:08 Drug: NS 0.9% 1000 ml Route: IV; Rate: 1 bolus; Site: right antecubital; ad5 23:56 Follow up: IV Status: Completed infusion; IV Intake: 1000ml ad5 22:08 Drug: Zofran (Ondansetron) 4 mg Route: IVP; Site: right antecubital; ad5 22:37 Follow up: Response: No adverse reaction; Nausea is decreased ad5 Intake: 23:56 IV: 1000ml; Total: 1000ml. ad5 Outcome: 23:26 Decision to Hospitalize by Provider. ma2 12/29 01:00 Admitted to ER Hold. Please see [facility] for further documentation. ad5 Condition: stable Instructed on the need for admit, Demonstrated understanding of instructions. 08:58 Patient left the ED. bp Signatures: Dispatcher [employer] EDMS Lala Mathew Brian, RN RN bp Antonietta Vogel MD MD ks2 Kareem Paniagua 2 Jeremiah Nam ad5 Corrections: (The following items were deleted from the chart) 12/28 21:44 21:40 Home Meds: Hydrocodone-Acetaminophen 5/500 Oral; ad5 ad5 22:17 21:47 Fall Risk No fall in past 12 months (0 pts). Secondary diagnosis (15 points) IV ad5 access (20 points). Ambulatory Aid- None/Bed Rest/Nurse Assist (0 pts). Gait- Weak (10 pts.). Mental Status- Overestimates/Forgets Limitations (15 pts.). Total Li Fall Scale indicates High Risk Score (45 or more points). Fall prevention measures have been instituted. Side Rails Up X 2 Frequent Obs/Assessments Occuring Family Present and informed to notify staff if the need to leave the bedside As available patient and family educated on Fall Prevention Program and Strategies. ad5
--- NOTE | 2020-12-28 23:26 | EDPHYS ---
Physician Documentation [facility] Name: Edgar Lockwood II Age: 80 yrs Sex: Male : 1940 Arrival Date: 12/28/2020 Time: 21:29 Bed 13 Private MD: ED Physician Antonietta Vogel HPI: 12/28 22:45 This 80 yrs old Male presents to ER via EMS with complaints of Weakness, ma2 Vomiting. 22:45 Onset: The symptoms/episode began/occurred gradually, 1 week(s) ago. Associated signs ma2 and symptoms: Pertinent positives: weakness, Pertinent negatives: fever, paresthesias, syncope. Severity of symptoms: At their worst the symptoms were mild in the emergency department the symptoms are unchanged. The patient has experienced similar episodes in the past. 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 Historical: - Allergies: 21:40 NKDA; ad5 - Home Meds: 21:40 Amiodarone Oral [Active]; hydrocodone [Active]; Morphine Oral [Active]; Dexamethasone ad5 Oral [Active]; trazodone Oral [Active]; Zofran Oral [Active]; - PMHx: 21:40 Atrial Fib; Hyperlipidemia; lung cancer; ad5 - Immunization history:: Adult Immunizations unknown. - Social history:: Smoking status: unknown. - Family history:: not pertinent. ROS: 22:45 Constitutional: Negative for fever, chills, and weight loss. ma2 22:45 All other systems are negative. Exam: 22:45 Constitutional: This is a well developed, well nourished patient who is awake, alert, ma2 and in no acute distress. Head/Face: Normocephalic, atraumatic. Eyes: Pupils equal round and reactive to light, extra-ocular motions intact. Lids and lashes normal. Conjunctiva and sclera are non-icteric and not injected. Cornea within normal limits. Periorbital areas with no swelling, redness, or edema. ENT: Nares patent. No nasal discharge, no septal abnormalities noted. Tympanic membranes are normal and external auditory canals are clear. Oropharynx with no redness, swelling, or masses, exudates, or evidence of obstruction, uvula midline. Mucous membranes moist. Neck: Trachea midline, no thyromegaly or masses palpated, and no cervical lymphadenopathy. Supple, full range of motion without nuchal rigidity, or vertebral point tenderness. No Meningismus. Chest/axilla: Normal chest wall appearance and motion. Nontender with no deformity. No lesions are appreciated. Cardiovascular: Regular rate and rhythm with a normal S1 and S2. No gallops, murmurs, or rubs. Normal PMI, no JVD. No pulse deficits. Respiratory: Lungs have equal breath sounds bilaterally, clear to auscultation and percussion. No rales, rhonchi or wheezes noted. No increased work of breathing, no retractions or nasal flaring. Abdomen/GI: Soft, non-tender, with normal bowel sounds. No distension or tympany. No guarding or rebound. No evidence of tenderness throughout. Back: No spinal tenderness. No costovertebral tenderness. Full range of motion. Skin: Warm, dry with normal turgor. Normal color with no rashes, no lesions, and no evidence of cellulitis. MS/ Extremity: Pulses equal, no cyanosis. Neurovascular intact. Full, normal range of motion. Neuro: Awake and alert, GCS 15, oriented to person, place, time, and situation. Cranial nerves II-XII grossly intact. Motor strength 5/5 in all extremities. Sensory grossly intact. Cerebellar exam normal. Normal gait. Vital Signs: 21:37 BP 121 / 63; Pulse 64; Resp 17 S; Temp 99.0; Pulse Ox 94% on R/A; Weight 70.31 kg; ad5 Height 5 ft. 9 in. (175.26 cm); Pain 3/10; 22:36 BP 111 / 67; Pulse 56; Resp 18 S; Pulse Ox 93% ; ad5 23:47 BP 95 / 64; Pulse 54; Resp 18 S; Pulse Ox 95% on R/A; ad5 21:37 Body Mass Index 22.89 (70.31 kg, 175.26 cm) ad5 MDM: 21:42 Patient medically screened. ma2 22:45 Data reviewed: vital signs, nurses notes. ma2 23:24 Counseling: I had a detailed discussion with the patient and/or guardian regarding: the ma2 historical points, exam findings, and any diagnostic results supporting the discharge/admit diagnosis, the presence of at least one elevated blood pressure reading (>120/80) during this emergency department visit, the need for further work-up and treatment in the hospital. 12/28 21:35 Order name: Amylase, Serum ne12/28 21:35 Order name: Basic Metabolic Panel ne12/28 21:35 Order name: Blood Culture Adult (2) ne12/28 21:35 Order name: C-Reactive Protein ne12/28 21:35 Order name: CBC with Diff; Complete Time: 23:21 12/28 21:35 Order name: CPK; Complete Time: 23:21 ne12/28 21:35 Order name: Ckmb; Complete Time: 23:21 ne12/28 21:35 Order name: LFT's; Complete Time: 23:21 ne12/28 21:35 Order name: Lactate; Complete Time: 23:21 ne12/28 21:35 Order name: Lipase; Complete Time: 23:21 ne12/28 21:35 Order name: Procalcitonin; Complete Time: 23:21 ne12/28 21:35 Order name: Protime (+inr); Complete Time: 23:21 ne12/28 21:35 Order name: Ptt, Activated; Complete Time: 23:21 ne12/28 21:35 Order name: Troponin (emerg Dept Use Only); Complete Time: 23:21 12/28 21:35 Order name: Urine Microscopic Only ne12/28 21:35 Order name: Chest Single View XRAY ne12/28 21:35 Order name: CT Head Brain wo Cont ne12/28 21:36 Order name: AMMONIA; Complete Time: 23:21 ne12/28 21:36 Order name: Amylase; Complete Time: 23:21 [facility] 12/28 21:36 Order name: Basic Metabolic Panel; Complete Time: 23:21 [facility] 12/28 21:36 Order name: Blood Culture [facility] 12/28 21:36 Order name: C-Reactive Protein; Complete Time: 23:21 [facility] 12/29 05:08 Order name: Lactate [facility] 12/29 05:20 Order name: Urinalysis W/Microscopic [facility] 12/29 05:35 Order name: Troponin I [facility] 12/29 05:35 Order name: T4 Free [facility] 12/29 05:35 Order name: Thyroid Stimulating Hormone [facility] 12/29 05:35 Order name: Transferrin Sat/Iron Binding [facility] 12/29 05:35 Order name: Ferritin [facility] 12/28 21:35 Order name: Cardiac monitoring; Complete Time: 21:50 [facility] 12/28 21:35 Order name: EKG - Nurse/Tech; Complete Time: 21:50 [facility] 12/28 21:35 Order name: IV Saline Lock - Large Bore; Complete Time: 21:50 ne2 12/28 21:35 Order name: Labs collected and sent; Complete Time: 21:50 ne2 12/28 21:35 Order name: O2 Per Protocol; Complete Time: 05:47 ne2 12/28 21:35 Order name: O2 Sat Monitoring; Complete Time: 21:50 ma2 Administered Medications: 22:08 Drug: NS 0.9% 1000 ml Route: IV; Rate: 1 bolus; Site: right antecubital; ad5 23:56 Follow up: IV Status: Completed infusion; IV Intake: 1000ml ad5 22:08 Drug: Zofran (Ondansetron) 4 mg Route: IVP; Site: right antecubital; ad5 22:37 Follow up: Response: No adverse reaction; Nausea is decreased ad5 Disposition Summary: 12/28/20 23:26 Hospitalization Ordered Hospitalization Status: Observation ma2 Provider: Delfino Landeros Condition: Stable ma2 Problem: new ma2 Symptoms: are unchanged ma2 Bed/Room Type: Standard ne2 Location: Telemetry/MedSurg (observation)(12/29/20 05:50) tl1 Room Assignment: [facility](12/29/20 05:50) tl1 Diagnosis - Nausea with vomiting, unspecified ma2 - Altered mental status, unspecified ma2 Forms: - Medication Reconciliation Form ma2 - SBAR form ma2 Signatures: Dispatcher [employer] EDMS Mary Santoyo RN RN tl1 Antonietta Vogel MD MD ma2 Jeremiah Nam ad5 Corrections: (The following items were deleted from the chart) 21:44 21:40 Home Meds: Hydrocodone-Acetaminophen 5/500 Oral; ad5 ad5 12/29 00:19 12/28 23:26 Telemetry/MedSurg (observation) ma2 tl1 12/29 00:19 12/28 23:26 ma2 tl1 12/29 05:50 00:19 [facility] ER HOLD tl1 tl1 05:50 00:19 ERHOLD- tl1 tl1
--- NOTE | 2020-12-29 00:45 | P.HP ---
Certification for Inpatient Patient admitted to: Observation With expected LOS: <2 Midnights Patient will require the following post-hospital care: None Practitioner: I am a practitioner with admitting privileges, knowledge of patient current condition, hospital course, and medical plan of care. Services: Services provided to patient in accordance with Admission requirements found in Title 42 Section 412.3 of the Code of Federal Regulations Patient History Date of Service: 12/29/20 Primary Care Provider: Waqar Reason for admission: intractable nausea and vomiting History of Present Illness: Mr. Lockwood is a 80 yo M with small cell lung cancer on chemotherapy, dementia, afib and HLD here today for intractable nausea and vomiting. He started chemotherapy 4 weeks ago. Starting last night, he had nonstop nausea and vomiting. He had an episode of confusion where he could not follow commands or give his name or . He was weak, unable to transfer himself out of the bed. describes that he was weak like a ragdoll. She also reports fever to 102 and runny nose. Denies cough and diarrhea. At bedside he is alert to person, place, and time. He is next scheduled to see his oncologist, Dr. Montes De Oca with [facility] on 01/25 for repeat scans. H/H 11.7, Plt 115, trop 0.06. Allergies No Known Allergies Allergy (Verified 07/29/14 09:17) Home Medications: Amiodarone HCl [Cordarone*] 100 mg PO DAILY 07/04/18 Amox/Clavulanate [Augmentin 875-125 Tab] 875 mg PO BID #16 tab 11/01/19 Hyoscyamine Sulfate [Levsin-Sl] 0.125 mg SL Q4H PRN #30 tab.subl 11/01/19 Ondansetron [Zofran] 4 mg PO Q6H PRN #30 tab 11/01/19 - Past Medical/Surgical History Diabetic: No -: hyperlipidemia -: paroxysmal afib -: dementia -: small cell lung cancer -: Rotator cuff sx rt -: Lumbar 2&3 fusion -: Back Sx -: prostate sx Psychosocial/ Personal History: , son is ER doctor in [place] - Family History Mother -: Cancer Notes: metastatic Father Notes: none - Social History Smoking Status: Former smoker Alcohol use: No CD- Drugs: No Caffeine use: No Place of Residence: Home Review of Systems 10-point ROS is otherwise unremarkable General: Fever Gastrointestinal: Nausea, Vomiting Neurological: Confusion Physical Examination - Physical Exam General: Alert, In no apparent distress, Oriented x3, Cooperative, Demented, Other (can say his name, year, and that he is in hospital. cannot tell me what state he is in. ) HEENT: Atraumatic, PERRLA, Mucous membr. moist/pink, EOMI, Sclerae nonicteric Neck: Supple, 2+ carotid pulse no bruit, No LAD, Without JVD or thyroid abnormality Respiratory: Clear to auscultation bilaterally, Normal air movement Cardiovascular: Regular rate/rhythm, Normal S1 S2 Gastrointestinal: Normal bowel sounds, No tenderness Musculoskeletal: No tenderness Integumentary: No rashes Neurological: Normal speech, Normal strength at 5/5 x4 extr, Normal tone, Dementia Lymphatics: No axilla or inguinal lymphadenopathy - Studies Laboratory Data (last 24 hrs) 12/28/20 21:35: PT 11.7, INR 1.02, APTT 29.3 12/28/20 21:35: WBC 4.90, Hgb 11.7 L, Hct 33.3 L, Plt Count 115 L 12/28/20 21:35: Sodium 136, Potassium 3.8, BUN 18, Creatinine 0.96, Glucose 104, Total Bilirubin 0.6, AST 55 H, ALT 35, Alkaline Phosphatase 106, Amylase 31, Lipase 42 L Assessment and Plan - Problems (Diagnosis) (1) Small cell lung cancer Current Visit: Yes Status: Chronic (2) Dementia Current Visit: Yes Status: Chronic Qualifiers: Dementia type: unspecified type Dementia behavioral disturbance: without behavioral disturbance Qualified Code(s): F03.90 - Unspecified dementia without behavioral disturbance (3) Intractable nausea and vomiting Current Visit: Yes Status: Acute (4) Dyslipidemia Current Visit: No Status: Chronic (5) Paroxysmal A-fib Current Visit: No Status: Chronic - Plan continue IVF advance diet as tolerated dietitian consulted physical therapy consulted antiemetics as needed lactate and urinalysis pending trend troponins reconcile and continue home medications DVT ppx Discharge Plan: Home Plan to discharge in: 24 Hours - Advance Directives Does patient have a Living Will: No Does patient have a Durable POA for Healthcare: Yes - Code Status/Comfort Care Code Status Assessed: Yes (full code ) Critical Care: No Time Spent Managing Pts Care (In Minutes): 70
[2020-12-29] MEDS ORDERED: ONDANSETRON 4 MG/2 ML VIAL IV PRN (01:19)
[2020-12-29] MEDS ORDERED: ACETAMINOPHEN 500 MG TAB PO PRN (01:19)
[2020-12-29] MEDS: NA CHLORIDE 0.9% 1,000 ML IV SCH ×3 (01:19→15:20)
[2020-12-29 01:31] VITALS: BMI 22.8
[2020-12-29] MEDS ORDERED: NA CHLORIDE 0.9% 1,000 ML ONE (02:14)
[2020-12-29 05:04] LABS: Urine Appearance CLEAR (Clear); Urine Bilirubin NEGATIVE (Negative); Urine Blood 1+ (Negative); Urine Color YELLOW (Yellow); Urine Glucose NEGATIVE (Negative); Urine Protein 1+ (Negative); Urine Specific Gravity 1.015 (1.005-1.030)
[2020-12-29 05:25] LABS: Urine Bacteria <20 /HPF (NONE SEEN); Urine RBC <5 /HPF (NONE SEEN)
[2020-12-29 05:35] LABS: Ferritin 4242.9 ng/mL (26-388); Thyroid Stimulating Hormone 0.581 uIU/mL (0.360-3.740); Troponin I 0.07 ng/mL (0.0-0.045)
[2020-12-29] MEDS ORDERED: ONDANSETRON 4 MG/2 ML VIAL ONE (06:03)
--- NOTE | 2020-12-29 07:19 | RAD REPORT ---
EXAM DESCRIPTION: Cece Single View12/28/2020 10:14 pm CLINICAL HISTORY: Congestion COMPARISON: 2019 FINDINGS: The lungs appear clear of acute infiltrate. The heart is normal size IMPRESSION: No acute abnormalities displayed
[2020-12-29 10:31] VITALS: O2SAT 93
--- NOTE | 2020-12-29 12:52 | RAD REPORT ---
EXAM DESCRIPTION: CT - Head Brain Wo Cont - 12/29/2020 6:32 am CLINICAL HISTORY: CONFUSED. TECHNIQUE: Axial, coronal, and sagittal images through the brain were performed in the absence of in travenous contrast. This exam was performed according to our departmental dose-optimization program w hich includes use of Automated Exposure Control, adjustment of the mA and/or kV according to patient size and/or use of iterative reconstruction technique. COMPARISON: None. FINDINGS: There is diffuse age-appropriate atrophy throughout the brain parenchyma. Moderate periven tricular white matter changes are present, and there is moderate ex vacuo dilatation of the ventricul ar system. There is no intra-axial or extra-axial bleed. There is no mass or mass effect. The visualized paranasal sinuses and mastoid air cells are patent. No acute fracture is identified. IMPRESSION: 1. No acute intracranial abnormality identified. 2. Chronic age-related and microvascular ischemic changes. Electronically signed by: Isaura Hutchinson MD 12/28/2020 10:12 PM CDT Due to temporary technical issues with the PACS/Fluency reporting system, reports are being signed by the in house radiologists without review as a courtesy to insure prompt reporting. The interpreting radiologist is fully responsible for the content of the report.
--- NOTE | 2020-12-29 16:35 | EKG ---
Test Date: 2020-12-28 Test Time: 21:31:16 [place]: LARA MEASUREMENT RESULTS: Intervals: Rate: 66 MO: 194 QRSD: 88 QT: 428 QTc: 448 [place]: P: 60 MO: 194 QRS: -23 T: 18 INTERPRETIVE STATEMENTS: Sinus rhythm with premature atrial complexes Nonspecific T wave abnormality Abnormal ECG Compared to ECG 10/30/2019 18:07:30 Atrial premature complex(es) now present T-wave abnormality now present Sinus bradycardia no longer present Myocardial infarct finding no longer present Electronically Signed On 12-29-20 16:33:03 CDT by Anoop Guerrero
[2020-12-29 17:43] VITALS: BP 152/70; TEMP 97.5
--- NOTE | 2021-01-02 16:08 | P.DS ---
Admission Date: 12/29/20 Discharge Date: 12/29/20 Primary Care Provider: Waqar Disposition: [facility]/HOME HEALTH CARE Reason for Admission: intractable nausea and vomiting - Problems (1) Intractable nausea and vomiting Status: Acute (2) Dementia Status: Chronic Qualifiers: Dementia type: unspecified type Dementia behavioral disturbance: without behavioral disturbance Qualified Code(s): F03.90 - Unspecified dementia without behavioral disturbance (3) Small cell lung cancer Status: Chronic Brief History of Present Illness: Mr. Lockwood is a 80 yo M with small cell lung cancer on chemotherapy, dementia, afib and HLD presented with intractable nausea and vomiting. Patient is on meds for 4th weeks of chemotherapy. He had an episode of confusion where he could not follow commands or give his name or . He was weak, unable to transfer himself out of the bed. Patient also had a fever of 102 and runny nose. Denies cough and diarrhea. He was alert to person, place, and time during examination in the ED. Patient hospitalized for further management. Hospital Course: Patient placed under observation on the medical and treated with supportive measures including IV hydration and antiemetics. Patient's symptoms resolved during the course of the admission. He tolerated feeding. Renal function was within normal limit. Patient's symptoms improved and deemed stable for discha rge. He is discharged with home health for Nursing and physical therapy. Vital Signs/Physical Exam: Temp Pulse Resp BP Pulse Ox 97.5 F 57 18 152/70 H 97 12/29/20 16:00 12/29/20 16:00 12/29/20 16:00 12/29/20 16:00 12/29/20 16:00 General: Alert, In no apparent distress, Oriented x3 HEENT: Mucous membr. moist/pink Neck: JVD not distended Respiratory: Clear to auscultation bilaterally, Normal air movement Cardiovascular: Regular rate/rhythm, Normal S1 S2 Gastrointestinal: Soft and benign, Non-distended Musculoskeletal: No swelling Integumentary: No rashes Neurological: Normal strength at 5/5 x4 extr Laboratory Data at Discharge: WBC 4.90 K/uL (4.3-10.9) 12/28/20 21:35 Hgb 11.7 g/dL (13.6-17.9) L 12/28/20 21:35 Hct 33.3 % (39.6-49.0) L 12/28/20 21:35 Plt Count 115 K/uL (152-406) L 12/28/20 21:35 PT 11.7 SECONDS (9.5-12.5) 12/28/20 21:35 INR 1.02 12/28/20 21:35 APTT 29.3 SECONDS (24.3-36.9) 12/28/20 21:35 Sodium 136 mmol/L (136-145) 12/28/20 21:35 Potassium 3.8 mmol/L (3.5-5.1) 12/28/20 21:35 BUN 18 mg/dL (7-18) 12/28/20 21:35 Creatinine 0.96 mg/dL (0.55-1.3) 12/28/20 21:35 Glucose 104 mg/dL (74-106) 12/28/20 21:35 Total Bilirubin 0.6 mg/dL (0.2-1.0) 12/28/20 21:35 AST 55 U/L (15-37) H 12/28/20 21:35 ALT 35 U/L (12-78) 12/28/20 21:35 Alkaline Phosphatase 106 U/L (45-117) 12/28/20 21:35 Troponin I 0.06 ng/mL (0.0-0.045) H 12/29/20 12:44 Amylase 31 U/L (25-115) 12/28/20 21:35 Lipase 42 U/L (73-393) L 12/28/20 21:35 Home Medications: Amiodarone HCl [Cordarone Tab] 200 mg PO DAILY 12/29/20 Aspirin 1 tab PO DAILY 12/29/20 Dabrafemib Mesylate 75 mg PO DAILY 12/29/20 Gabapentin 300 mg PO DAILY 12/29/20 Hydrocodone 5/APAP 325 [Rankin 5/325*] 1 tab PO BID PRN 12/29/20 Morphine *Extended Release* [MS Contin] 15 mg PO BEDTIME 12/29/20 Sennosides/Docusate Sodium [Senna-S Tablet] 8.6 mg PO BID 12/29/20 Trametinib Dimethyl Sulfoxide [Mekinist] 1 tab PO Q12H 12/29/20 dexAMETHasone [Dexamethasone] 4 mg PO TID 12/29/20 Followup: NONE,NONE [Primary Care Provider] -
== END 2020-12-29 18:20 | disposition home health service (06) ==
LOC: ER 21:23 → ERHOLD 12-29 00:04 → 4TH 12-29 08:12
PROVIDERS: ADMIT Internal Medicine; ATTEND Internal Medicine
DX: R11.2 Nausea with vomiting, unspecified (principal); C34.90 Malignant neoplasm of unspecified part of unspecified bronchus or lung; F03.90 Unspecified dementia, unspecified severity, without behavioral disturbance, psychotic disturbance, mood disturbance, and anxiety; I48.0 Paroxysmal atrial fibrillation; E78.5 Hyperlipidemia, unspecified; Z87.891 Personal history of nicotine dependence; Z80.9 Family history of malignant neoplasm, unspecified
CPT/HCPCS: 96361; 93005; 87040 ×2; 85025; 81001; 80048; 36415; 82140; 82150; 82550; 85610; 80076; 83605 ×2; 85730; 84443; 84484 ×3; 82553; 84439; 82728; 83690; 83540; 84145; 84466; 86140; 70450; 71045; 94760 ×2; 96374; 99285; J7030 ×2; J2405 ×2; G0378 ×2

== ENCOUNTER 2021-01-04 16:03 | Observation (INO) | payer OTHER ==
--- OUTSIDE RECORDS SUMMARY | 2021-01-04 16:11 | XMS REPORT | Continuity of Care Document ---
:1940 Author Organization [facility] t Address [address] [place] [address] Care Team Providers Name Role Phone Prezas DO Primary Care Physician Anamika Montes De Oca MD Attending Clinician Anamika Montes De Oca MD Attending Clinician ANAMIKA MONTES DE OCA Attending Clinician Unavailable LANEY Attending Clinician Unavailable DC GASTON Attending Clinician Unavailable Monty LITTLE Attending Clinician Lane BLANCO Attending Clinician Manish Gaston MD Attending Clinician Roseline Rai MD Attending Clinician MANISH GASTON Attending Clinician Unavailable Katie Pereira MD Attending Clinician Josep LITTLE Attending Clinician Servando BELL Attending Clinician Unavailable Izzy Buckner Attending Clinician Unavailable ROSELINE RAI Admitting Clinician Unavailable Payers Payer Name Policy Type Policy Effective Expiration Source Number Date Date [id number] [facility]NA 00:00:00 - [facility] VFJcpav43040/07/2020-Pr esentMaps Contracted TOTALCARE SNP MEDICARE [id number] HMO-CIGNA CIGNA O - RNPO PCP - [id number] RENAISSANCE IPA MEDICARE PART A \\T\\ B [id number] - MEDICARE CIGNA [id number] 2019 [place] HEALTHSPRINGCIGNA 00:00:00 Methodi HEALTHSPRING O [facility] [id number] 2019-Pr esentHMO Problems Condition Condition Condition Status [...] unknown 00 Center primary primary site site Acute Acute Disease Active [facility] midline midline 4-15 [facility] - low back low back 00:00: Medica l pain with pain with 00 Cent er bilateral bilateral sciatica sciatica Chronic Chronic Disease Active [facility] atrial atrial 4-15 [facility] - fibrillati fibrillati 00:00: Me dical on on 00 Center Chronic Chronic Disease Active [facility] midline midline 4-15 [facility] - low back low back 00:00: Medica l pain with pain with 00 Cent er right-side right-side d sciatica d sciatica Cough Cough Disease Active [place] 12-21 Methodi 00:00: st 00 Mass Mass Disease Active [place] 12-21 Methodi 00:00: st 00 Blood in Blood in Disease Active [place] urine urine 11-28 Methodi 00:00: st 00 Benign Benign Disease Active [place] prostatic prostatic 02-07 Meth reymundo hyperplasi hyperplasi 00:00: st a with a with 00 urinary urinary obstructio obstructio n n Urinary Urinary Disease Active [place] tract tract 02-07 Methodi infectious infectious 00:00: st disease disease 00 abdominal abdominal Disease Active Vania wilkerson aortic aortic 4-12 Methodi dilation dilation 00:00: st (<3 cm) (<3 cm) 00 Abnormal Abnormal Disease Active 2015-07 [place] electrocar electrocar 16 [place] diography diography 00:00: st 00 Hyperlipid Hyperlipid Disease Active 2015-07 [place] emia emia 1-16 Methodi 00:00: st Hypertensi Hypertensi Disease Active 2015-07 [place] on on 16 Methodi 00:00: st Paroxysmal Paroxysmal Disease Active 2015-07 [facility] atrial atrial 16 Methodi fibrillati fibrillati 00:00: st on on 00 Raised Raised Disease Active [place] prostate prostate 6-20 Method i specific specific [...] Natural brother No Known Problems Damian rojas Anabaptist Natural father Hypertension Adames Anabaptist Natural sister No Known Problems Vania Cunninghamist Social History Social Habit Start Date Stop Date Quantity Comments Source Sex Assigned At [facility] Cigarettes smoked 2019-04-05 2019-04-05 Zacarias King current (pack per 00:00:00 00:00:00 day) - Reported Cigarette 2019-04-05 2019-04-05 Adames Octavio ist pack-years 00:00:00 00:00:00 Tobacco use and 2019-04-05 2019-04-05 Former user Zacarias King exposure 00:00:00 00:00:00 Alcohol intake 2019-04-05 2019-04-05 Current [facility] thodist 00:00:00 00:00:00 non-drinker of alcohol (finding) Smoking Status Start Date Stop Date Source Former smoker 2019-04-05 00:00:00 2019-04-05 00:00:00 Adames [facility] Medications Ordered Filled Start Stop Current Ordering Indication Dosage Frequency Signature Comments Components Source Medication Medication Date Date Medication? Clinician (SIG) Name Name lidocaine 2021- Yes 1{patch Q24H Place [address] (LIDODERM) 4-18 -18 } patch onto Ebonie rosies - 5 % patch 00:00: 23:59 the skin Med ical 00 :00 daily Center Remove & Discard patch within 12 hours or as directed by . polyethylen 2020- No 17g QD Take [address] e glycol -18 05-18 by mouth [facility] - (GLYCOLAX) 00:00: [...] needed for Pain. gabapentin 2021- Yes 100mg [id number] Take [address] (NEURONTIN) 4-17 -17 [id number] capsule [facility] - 100 MG 00:00: 23:59 [...] capsule 49 glucosamine 2017-07 Yes Take by aVnia wilkerson /chondr bird 1-02 mouth. Methodi A sod 14:34: st (OSTEO 49 BI-FLEX ORAL) Immunizations Ordered Immunization Filled Immunization Date Status Commen ts Source Name Name FLUZONE HIGH-DOSE PF 2018-04-15 Completed [place] 00:[place]:00 [facility] Vital Signs Vital Name Observation Time Observation Value Comments Source Systolic blood 2020-10-16 08:33:00 118 mm[Hg] [facility] Diastolic blood 2020-10-16 08:33:00 57 mm[Hg] [facility] S t [facility] Heart rate 2020-10-16 08:33:00 62 /min [facility] Body temperature 2020-10-16 08:33:00 35.94 Man[place] [facility] Respiratory rate 2020-10-16 08:33:00 18 /min [facility] Oxygen saturation in 2020-10-16 08:33:00 95 /min [facility] Arterial blood by Medical Ce nter Pulse oximetry Body height 2020-10-14 02:41:00 172.7 cm [facility] Body weight 2020-10-14 02:41:00 79.379 kg [facility] BMI 2020-10-14 02:41:00 26.61 kg/m2 [facility] Procedures Procedure Date / Time Performing Clinician Source Performed MR BRAIN WITH & WITHOUT 2020-10-16 15:08:00 FrediChantelle [facility] - IV CONTRAST [facility] CBC W/PLT COUNT & AUTO 2020-10-16 04:49:00 TJ Aguero [facility] - DIFFERENTIAL [facility] BASIC METABOLIC PANEL 2020-10-16 04:49:00 Laci [facility] - (7) [facility] RPR 2020-10-16 04:49:[address] [facility] CBC W/PLT COUNT & AUTO 2020-10-15 04:08:00 TJ Aguero [facility] - DIFFERENTIAL [facility] BASIC METABOLIC PANEL 2020-10-15 04:08:00 Laci [facility] - (7) [facility] TISSUE EXAM 2020-10-14 17:04:[address] [facility] CT 2020-10-14 16:44:00 Chantelle Rai [facility] - BIOPSY/ASPIRATION/INJECT [facility] ION ECG 12-LEAD 2020-10-14 14:26:29 Unknown, Hl7 Doctor [facility] ECG 12-LEAD 2020-10-14 14:24:14 Unknown, Hl7 Doctor [facility] CBC W/PLT COUNT & AUTO 2020-10-14 04:17:00 TJ Aguero [facility] - DIFFERENTIAL [facility] BASIC METABOLIC PANEL 2020-10-14 04:17:00 Laci [facility] (7[facility] TSH/FREE T4 IF INDICATED 2020-10-14 04:17:00 Laci [facility] VITAMIN B12 AND FOLATE 2020-10-14 04:17:00 Laci [facility] S [facility] URINALYSIS W/ REFLEX 2020-10-14 01:48:00 [facility] CT LUMBAR SPINE WITH & 2020-10-13 23:38:00 Michael [facility] - WITHOUT IV CONTRAST Medical Cent er CT BRAIN WITHOUT IV 2020-10-13 23:38:00 Kasi Gaston [facility] - CONTRAST [facility] SARS-COV2/RT-PCR ([facility] & 2020-10-13 21:38:00 Kasi Gaston [facility] - REF LABS) [facility] ABORH, MANUAL 2020-10-13 21:31:00 MelchorMary fenton [facility] CBC W/PLT COUNT & AUTO 2020-10-13 17:31:00 Kasi Gaston [facility] [place] - DIFFERENTIAL [facility] COMPREHENSIVE METABOLIC 2020-10-13 17:31:00 [facility] PANEL [facility] PT/APTT 2020-10-13 17:31:00 Kasi Gaston [facility] - [facility] TYPE AND SCREEN, 2020-10-13 17:31:00 Kasi Gaston [facility] - AUTOMATED [facility] CT CHEST W CONTRAST 2020-10-11 00:00:00 [...] Comments Source Future Scheduled 2021-03-02 INFLUENZA VACCINE (#1) [facility] Test 00:00:00 [code = INFLUENZA Medical Ce nter VACCINE (#1)] Future Scheduled 2021-01-30 INFLUENZA VACCINE [place] [facility] Test 00:00:00 [code = INFLUENZA VACCINE] Future Scheduled 2020-07-[address] [facility] - Test 00:00:00 (12+) [code = Medical Center DEPRESSION SCREENING (12+)] Future Scheduled 2020-07-02 Medicare IPPE (WELCOME [facility] - Test 00:00:00 TO MEDICARE) [code = Medical Center Medicare IPPE (WELCOME TO MEDICARE)] Future Scheduled 2005 65+ PNEUMOCOCCAL Adames [facility] Test 00:00:00 VACCINE (2 of 2 - PPSV23) [code = 65+ PNEUMOCOCCAL VACCINE (2 of 2 - PPSV23)] Future Scheduled 1990 SHINGLES VACCINES (#1) [place] [facility] Test 00:00:00 [code = SHINGLES VACCINES (#1)] [...] Scheduled 1952 COVID-19 VACCINE (1) Vania ston [facility] Test 00:00:00 [code = COVID-19 VACCINE (1)] Future Scheduled 1952 COVID-19 VACCINE (1) [facility] Test 00:00:00 [code = COVID-[address] VACCINE (1)] Encounters Start End Encounter Admission Attending Care Care Encounter Source Date/Time Date/Time Type Type Clinicians Facility Department ID 2020-12-21 2020-12-21 Outpatient [facility] [id number] [facility] 16:17:36 16:21:32 [facility] 2020-12-21 2020-12-21 Office ROSE Montes De Oca [id number] 11:33:03 15:02:03 Visit Martín Ryan [id number] 2020-12-21 2020-12-21 Outpatient DOMENIC MONTES DE OCA [facility] [id number] [facility] 11:33:03 15:02:03 MARTÍN [facility] 2020-12-21 2020-12-21 Outpatient LANEY, [facility] [id number] [facility] 11:28:26 13:06:22 ARINA [facility] 2020-12-21 2020-12-21 Outpatient [facility] [id number] [facility] 00:00:00 00:00:00 [facility] 2020-11-30 2020-11-30 Outpatient LANEY, [facility] [id number] [facility] 12:56:50 13:54:30 ARINA [facility] [employer] [employer] 2020-11-19 2020-11-19 Outpatient MARILIN, [facility] [id number] [facility] 11:01:03 13:01:02 BRITTNEY [facility] [employer] [facility] [employer] [employer] 2020-11-18 2020-11-18 Outpatient LANEY, [facility] [id number] [facility] 08:29:34 10:01:36 ARINA [facility] 2020-11-09 2020-11-[address] [facility] [id number] 14:52:43 15:30:13 Visit Martín Willson Shelby [id number] 2020-11-09 2020-11-09 Outpatient TAVON [facility] [id number] [facility] 14:52:43 15:30:13 MARTÍN [facility] 2020-10-22 2020-10-[address] [facility] [id number] 12:29:26 14:14:31 Visit Martín Willson Shelby [id number] 2020-10-13 2020-10-13 Office Randall [facility] [id number] 13:50:58 15:41:36 Visit Rajesh AMBULATOR [id number] Katie Artis [id number] Results Test Description Test Time Test Comments Results Result Comments Source Tissue Exam 2020-11-03 14:25:00 Test Item Value Reference Range Interpretation Comme nts Case Report (test code = 104) Surgical Pathology Report Case: [id number] Authorizing Provider: Chantelle Rai MD Collected: 10/14/2020 05:04 PM Ordering Location: [address] Received: 10/15/2020 08:57 AM Service Pathologist: Jonathon Brice MD Specimen: Spine, Lumbar ADDENDUM 2 (test code = 3382) c0eqyEZoORZmwFX8KdWzBKFak9bkl0XmlGFzr GFy MNnchXBlfyQecr95wSH1bF41YC6oPKTnSrQ5BWKv iqH0Zdf6AFKrXUJniYKoG795y9ajv3falzCffIW8 cJjoVHFeOODmENxmKVXfMmAkJcKDE22FMBILSuHY VLJEQyAIEUklZS0mQmPVM0BUPXUZCCzWLN5AOOqj HR6GUD2IZ1MEPQ5KIAAblwnmGAWzWzVGVWkSVrnn VJHkCV9ZML1PQ2TLMW1fSe4NVKZgZZGoFC5RWXMH H51OLVEGP5jKTKaJPxDZYQmWEUxFNYtwLADmsVJs TDPIGPMVM7RWZqD9TLY6IMuxWVYkod2= ADDENDUM (test code = 3381) h2ukkGMtRSYerMB7NgXsDEJza5gfu8OnkEIrgNE y JRzvvIJudnHjsw45uDH2eX50QR4kBGFnPkT4SFTb zmX3Zon8EMJuXFGeeAUtO668d7ail2fyhlLiqUT5 fVxwYXJkXHBsYWluXGZzMjAgVGhpcyBhZGRlbmR1 bCIxexMjDUbyBiWwq7I2FABiyD5tldLsl4W8OBBi y0OzzGDmw6FkALFTEJFxmJ5jjR5fi8MnuR4pvTCc Zj6efSRoPEE3UE1ua0qekm5suAKcDYpaJu5pVQRe kwurrb5swFSpYGPgxiSDWFWAHYF8QECWPN3vLUiz HkXcZFOxk97cPBvdRWaFScYDO8EXMZjiKdPfrdMn smFmfGpuWMBqwaTBXI3BCwVYDv6TH4GAND5NKZCP L1BXXkN1BBVhfKItXBQzukZZxTYja1Vhj1TnNKN9 jAXgeZBlLBPsZE9yXYJehgBda3D9WLWuguWcdOZ9 aGVyIGRldGFpbHMuXHBhcn0= DIAGNOSIS (test code = 3220) a3ormUOwYHUjm7elQFZlcWUbKtNkXpXaEfWzDe pc dWMxIHtccnRmMVxlcGljOTIwMlxhbnNpXHNwbHRw Y7HuspkfKGslQL3mDA3wbSlteCFmpBCrEJCwQzJx t3plf570gOJid4mhLMMRaxxjxUt9eYerO65kv6S4 AeliP01dxXTbWZchwHPboewjdlRqMJDfRGaSOAQT SqJSOFkMEGavV8GvU9JJUCNRMGXEP9MTUAmocXNi PIOyEGNBY06EYADHKUORKRiSTXKCXjZZWt9ZVNre TlNQA0TmEIWCOd1YANAUTQ4JWQApAkMVZXFkV05g XK1PMIdHBJ9IZXMnX0GYANBZHE8RWwTsPHXses20 XFR1JyUnw7P2YKW9HHYxVEThv3msPOTdvQCoRzIs MyWmSlXfChqwsKDiGGYaSeNeh8quk930gZNbh0uv XQGcGgW3vALfUAUxaRDyN774OUDcLXazr0vzz1Ob DMKjzUDmr7Z4BQXGzkrudSg2jClgE30zb9N6Nyzq T4xgPDJnHOLmG4EwWJ5jEEVtSoi2MWQ6BCU4OMAj UPLxB1WbFM5uFHYdgGVcWXk4z1cscCdwQBCyJYB4 n5xqBTsfggXjEC1hyv9ozZw9u1zvpqFzBTOaFHOc rMJGUJGcJ7BjxKwoIt5xiCl2oAzpIklqARL9Xeu9 OV2npv41niq6zPgaHRMbacdnBpG9YMmeTWKcatmd UTr0XMbsPQKujON2PLIqnOHlB2FxNQZnJC2czdd2 UQS2FHfqBSHfQqD2SLOtcRFeNMZriLtlAGngp042 VXL3JsQuXB7eD0Wpw2N0xP5rdWFfIVQybYGiJaPb DFPars8biFAsWDthd4YzFSD5siU6qBThyDMjDGOl IcA8EQuyIO1hvk01FQZzAJJ8sv5gwOSshWauxzXe uBTlXVyoX3PsCNZfk283GNSbF5NkTGExq3Z8htQm ShQjTWFwzSD0keK0CFChSZ7fbkazo2ohXUylENwe ZKUxcyZ9pjO5WBWdtUBhO8AlpC9gXLCpID5vvvdv x4rlQNW7ULcpTRLoJRF1WnKtQQFdc6Tavyu5HuSh x1JgvCNdFSntO90kr483JJAswfQwD4vveFJnkkem dAZinqsiRSnrmkJ3LOWpXVvnwrdiWLZsCXphK5si JxSeFAVyiRwqQXbsd1DsHJQoJUVeMmJsvYVxNNBy Jov4HMVbjYVrZAOhKeXiV5ypqfhbDgQHYVNpo1li C1hzsHRLtADqP7DsVMmavhEeQLwhBTezYNFvAJC6 WZ1uZGZpZCWlol63 COMMENT (test code = 3359) o6bqkHBoEVAtkBS1IqNpSOYpy9byn5CbzUTsdXJy GQwttMWldoOaub58dXX2sB27YJ4cRDSbUvG0GIFf sfW0Nhs1GXDzVDHvyLOtJ217u0nop1qyraXpsOH2 oFdnFLJdZVTjTDdqVCXsOwBeYCmxuX7fx2qwC8On eBnoRKUtQRL3zH7eilXctoVeJCNlQKi8EUGvv4Ze kTEkaNIaCQArqeLsEOFsLUOpfaMar2pfa1Dtp40z dGQubDbufQ7yd3f4VOE1mReaBHAke6EegJUuocPo tzWkuI04XFhjLI8nVLGgha6paEoaes2sTZ2uvE3v yPgyhF4slBSkgIRiyZa3IHU7mAHmhTMac9KoxBCv bE0jtGIuglJsJh9fDYRDHIUuWfChO14hJtbroTgk BkWhbLj8rAHgmVUkTN5beBnrxplgkH95FKIntcPV DVTcTJbdNyPtb8txQVJhQRO7ASFtvlWvLMFKLDbg WXSoVV2eT2I0mPNtKyFCmCpolRvuCOStQVQuOP5v kJHbyXLus6ByUL5frBvvIPxpCMSoSOImITOnW0Fi E4irtOFvgMvqruR6sRigcLIyUiNjH1CiRAanuHIc y2DiVQQ3fHDvqYwbNF37VFUcsQjoIMFwp7RgTZ1v PIMbYVFrfFpurKCbyZXszVY1xROcFFJkQLEss5Yg nA3kx1k3IDQgiA7irJ8rorUkfnXfO88wrGO4nAEl SKM3rJNaKFGdAX1iN9UjS0you39dBgQVyAbtwWUx qMIdylFwrvDtkE8uq6hwTlYob0GsZErifGqkqiHi rkIrTGMfuE8dbrNeCYL4hoFqEVVggw1verLdqOnt BCAhhJ2dylhmb6q6MH3thJVcuV== CPT Code(s) (test code = 3357) q6gjmLOrIIOkiRP2NcGcGXClq9stj3SnvPFw cGFy OIoznOMtutBtte44eTF2mE28WP0cMOQdJkR7KZDp dhD9Pti9EWGpGFCkkYWbP563x8zkf4npuqMtvEM3 fVxwYXJkXHBsYWluXGZzMjAgODgzMDdccGFyIDg4 UuOmTLAspdK9WAI3HHesJZQjpx5= CLINICAL HISTORY (test code = 3356) w6fooCStFTGjtFF1BiYrQEBco6bxk5S sdHBncGFy YRhjdGQdpaDooz63jKA6oS78LZ2vMHCgMnX5GBGg nbE8Zno0FDDuSQZshYXwJ143u0suk6vkexGvsVZ4 vMxnMVLgMVIsCNjkOSDxHiEiU5oiw01ySmXlkKFy yN6kQXjplyJfMPAmSZYnpD7il9t7pHFqaAeofR6g yGXxJMHcS3horIwmYPiqJUK4 SPECIMEN SOURCE (test code = 3377) w0iysCXbTWYdlMK5LzWjJGCdf4giq2Hm dHBncGFy LMrogKEmgmSvfk77rDF2zX86HE5bEVIsJtN2KFCc nyQ7Psp7TDRtMMTopIYlT274g8srf5onocStfML3 aPpvINEmAVWaZYfsDXWhAmXmZ2AlkjHjHKe4gWQt clxwYXJ9 GROSS DESCRIPTION (test code = 3366) p7kokHNhCHRvlTIaCpGwGNDbVXYwl7 lcZGVmbGFu [file] UClccGFyfQ== MICROSCOPIC DESCRIPTION (test code = w2jgtPYbFGCypRJ8KgYuLLGgc8uzf2 BsdHBncGFy 3371) OItmpZOeauLmof70xUP4gQ55PB7vHICeLhM6EWUb jbL4Ruw1KSGiBUXgjTFdI306f0wdk3chuzTetMJ0 lUrrMBEhWEQuCQcuUXYnNbHxMHZyGb0lgYKhBjdx YXJccGFyZFxwYXJ9 SPECIAL STUDIES (test code = 3376) w8imxLZmDVGvx7uzLLTgmURqMvVbAgEt ZnRuYmpc fAOpYRdpyuThBIaly0DaI8VkNmCfENuvhzUzBZVg QubgwpldYLIpNOJ5nlYxSFIeIGrsUCGsDEtyLz1h xBMbkNdkVrIlCIRgi3bkzlVAbjuyeIr4d3hcRGCd KlK1fJScUAcjS3mroyAtgDFoR1OnaZLkxYo0k9bc CnKfYzI6eCQoIUjtW8yipxDuxELbFLPzRSh9hE33 WPQveX9dbDOxVMjxyrRnUdL5ZVstKJPfQiJ0WCHf vRRqEDDkP9qeYPKxSGkhPTYmJZgbrJFuNQX0oLdl r6A5eOGctUTydCwzFwQrWuPjTxXZx7UzUPf3dHoh G2UzKWRvRkN7eEWbEBQcEOkcSFGdZGCcggD1tOqo ljJqt93ehLBkVIRsLHHlRfVbkObuBTZnUUVJh7Dp pEcxFAA8xWe4xRmgKzwoPGI9Dfv8YI1dhb06qbu9 sBhgJMPpglsnFuY2DDojJMWecyfuJUk1ZZrlCNIw jWC8YKQbeZBrE9AyDMSfRX5lnrf2PCH7QCguFROt CvP3LINweMTrRGXndFpkCDnnx086HMH1UmWkAM6c N0Zrh9D4gB1hzPAfKBQlbGZhGtPqTPNcuv4mlQCm ZFhit1XlKHD0fuF6eRQkmQFfJDFgIJ11Kvswq1Jb Oljsk1LeW41xdMG7COvlt9sxFV3yWbL4apZcUTma i7fejW0qWvG1KUvvWV6sSL4hAGVzlN6yhmjrUOLy HiXtjrkvKYKqvKfxuhSaEt6wfSxdYBY6YRdlK6qj cF4qKgG9FOowU1jbyT8lRPf7MUkacRL6GRBelZ3z UP0jzjfef4hfXKbsQBynFPPbfpY2gyC0LENffTNr W1GtyG5mAARqAC3bjgcxh7uyYPR7IRskFEOiJLW5 ZlXbILMwg9Zrvtt1GwRzy3JufXChZYzcO35xo006 QLBqjsBfX4dduBYkxmirkVOntowkMIwzxzK7OZKb XHBsYWluXGYxXGZzMjJcbGFuZzEwMzNcaGljaFxm XDrcYwXsXTKbGIqjL5rhFcQcX9IbIFGhLtFbHGic ISpsmFQrjKWtxBL5kK3yTY5pKBWysTAoK5BhHBWz ddHelTDsBVE1tAXncHFoDS0fQOvsrEExu7ffy2Zs H5xpnVpenSW5ZF9hISVaIXXnBLaic2NhvU2tPbxs nBTwgscpDLqnbaYhNAhqdikeGVOjFClbB4hrTyAx TPPydPxkZAccc5ZnCBQuKWRgDtkoxvTjNWr5uoJc KGKwzrvpQFOdtBhycY4cArTjUuIjFfsvBA0oEFEr H0czvPLuHJQsVRWgV1nhEbQbpE4lgHhwHAylTdMb ElEcPtMAy991xh2rOGBniVTfclHYsUAafD5xNXsc IBvnXZkdlQGzMApuh1dlSHHhy7p2nYPaOWXbymDr c3qcLOdbnqRzAYJecNXbhCArERYaw33gRJofbBmc pQjaNCTqv4XfoSjqt9BhYdNcLGcwd8TzO83ccNLw mZBocItsSWMoqjAiKXWtr55pw8xnHWAgRrM6oTJu sNZ8dDEmyCXki9BnbSfaXIOqo3jxOJTshs7dmxdv aAXpx8SxhB9iabyoHUdelEAdldKmFJThe5x1dOTc MAPfLOMgTTkiuKs0NJXqz746rj8slfU0cUFtTII4 YWlsYWJsZSBhcmUgZXZhbHVhdGVkXHBsYWluXGYx XGZzMjHold[facility]ville [facility] Hospital – HoldenvilleZzEwMzNcaGljaFxmMVxkYmNoXGYx OSkkH8dkDoGjX7VsOTKjMuQgeNBaH1apxIHbXKSc YWluXGYxXGZzMj[facility] – [facility] CityFuZzEwMzNcaGljaFxmMVxk AjLjSLIyYPcgJ2izGwTgD4HmPPUuQzIfCRcqmYGp dxmrEIfxqgHrVEhnqgwgKLCwVFqnO9jdLgBtVBFe iZmaLZfff0FlWEBqDANlIrpxryIgSTe0unIsQBWm kfkszKLtocdxINdzeiHgXJgwdniqWKXhAJthM4gi [file] NvxaFFG9tC== [id number] 14:25:00Surgical Pathology Report Case: [id number] Authorizing Provider: Chantelle Rai MD Collected: 10/14/2020 05:04 PM Ordering Location: [address] Received: 10/15/2020 08:57 AM Service Pathologist: Jonathon Brice MD Specimen: Sp ine, Lumbar REASON FOR ADDENDUM: TO REPORT ADDITIONAL IMMUNOSTAINSRESULT: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 LUMBAR SPINE, CT GUIDED BIOPSY: - NONSMALL CELL CARCINOMA, FAVOR ADENOCARCINOMA BASED ON MORPHOLOGY (SEE COMMENT) Signing Pathologist Direct Phone Line: [phone] signed by Jonathon Brice MD on 10/20/2020 [...] correlation is recommended to determine the primary site.[id number] midline low back pain with right-sided sciaticaSpine, [...] evaluated Immunohistochemistry technical testing was performed at [facility] Pathology Laboratory where it was developed and [...] msQ-T Interval 532 msQTC Calculation(Bazett) 470 msP [place] 29 degreesR [place] -35 degreesT [place] -42 degreesSinus bradycardiaLeft axis deviationST & T wave abnormality, consider anterolateral ischemiaProlonged QTAbnormal ECGWhen compared with ECG of 25 MAY 1998T wave inversion now seen in the precordial leadsQT has lengthenedConfirmed by MD OZZIE, JACKIE ([id number]) on 10/18/2020 3:30:57 [facility]00 Test Item Value Reference Range Interpretation Comments RPR (test code = 44927-7) Nonreactive Nonreactive Lab Interpretation (test code = Normal 44595-5) [facility] 13[facility]23[facility]00 Test Item Value Reference Range Interpretation Comments RPR SCREEN (BEAKER) (test code = Nonreactive Nonreactive 420) MR, BRAIN, [id number] 15:32:00Unlisted Reason for Exam - Click Yes and Enter Reason Below->YesUnlisted Reason for Exam->suspected metastatic cancer. memory impairment.Deos the patient have an implanted electronic device?->No [facility] : 1940 Sex: MFINAL [...] Campbell MDReport Verified Date/Time: 10/16/2020 15:32:21Reading Location: [address] Neuro Reading Room MR brain without & with IV [id number] 15:32:00Interface, External Ris In - 10/16/2020 3:34 [...] MDReport Verified Date/Time: 10/16/2020 15:32:21 Reading Location: [address] Neuro Reading Room [facility] Metabolic [id number] 05:51:00 Test Item Value Reference Range Interpretation Comments Sodium (test code = 142 meq/L 555-677 6933-2) Potassium (test code 4.8 meq/L 3.5-5.1 Specime [...] Calcium (test code = 8.6 mg/dL 8.4-10.2 72184-4) EGFR ([place] = [place] [address]-6) CLINICAL DATA T O CALCULATE ESTIMATED GFR. JONATHAN (test code = JONATHAN) Ripsawyer ID - EDASI Lab Interpretation Abnormal (test code = 70655-6) [facility] METABOLIC [id number] 05:51:00 Test Item Value Reference Range Interpretation [...] 1092) DATA TO CALCULA TE ESTIMATED GFR. Ripsawyer ID - EDASICBC with platelet count + automated [id number] 05:26:00 Test Item Value Reference Range Interpretation Comments WBC (test code = 6690-2) 11.1 See_Comment H [A utomated message] The system [email or web address] generated this result transmitted ref erence range: 3.5 - 10 .5 K/L. The refe rence range was not u sed to interpret this result as normal/abnor mal. RBC (test code = 789-8) 4.76 See_Comment [Au tomated message] The system [email or web address] generated this result transmitted ref erence range: 4.63 - 6 .08 M/L. The refe rence range was not u sed to interpret this result as normal/abnor mal. MCHC (test code = 786-4) 32.8 See_Comment [A utomated message] The system [email or web address] generated this result transmitted ref erence range: [...] code = 333 See_Comment [Aut omated message] 777-3) The system [email or web address] generated this result transmitted ref erence range: 150 - 45 0 K/CU MM. The referen ce range was not u sed to interpret this result as normal/abnor mal. MPV (test code = 9.0 fL 9.4-12.4 L 32942-7) nRBC (test code = 413) 0 See_Comment [Aut omated message] The system [email or web address] generated this result transmitted ref erence range: [...] H [Aut omated message] 670) The system [email or web address] generated this result transmitted ref erence range: 1.78 - 5 .38 K/L. The refe rence range was not u sed to interpret this result as normal/abnor mal. # Lymphs (test code = 2.62 See_Comment [Auto mated message] 414) The system [email or web address] generated this result transmitted ref erence range: 1.32 - 3 .57 K/L. The refe rence range was not u sed to interpret this result as normal/abnor mal. # Monos (test code = 1.03 See_Comment H [Autom ated message] 415) The system [email or web address] generated this result transmitted ref erence range: 0.30 - 0 .82 K/L. The refe rence range was not u sed to interpret this result as normal/abnor mal. # Eos (test code = 416) 0.65 See_Comment H [Au tomated message] The system [email or web address] generated this result transmitted ref erence range: 0.04 - 0 .54 K/L. The refe rence range was not u sed to interpret this result as normal/abnor mal. # Baso (test code = 417) 0.04 See_Comment [A utomated message] The system whic h generated this result transmitted ref erence range: 0.01 - 0 .08 K/L. The refe rence range was not u sed to interpret this result as normal/abnor mal. Immature 1 % 0-1 Granulocytes-Relative (test code = 2801) Lab Interpretation (test Abnormal code = 48804-2) [facility] W/PLT COUNT & AUTO [id number] 05:26:00 Test Item Value Reference Range Interpretation [...] (BEAKER) (test code = 2801) BASIC METABOLIC [id number] 04:54:00 Test Item Value Reference Range Interpretation [...] 1092) DATA TO CALCULA TE ESTIMATED GFR. Ripsawyer ID - EDASICBC W/PLT COUNT & AUTO [id number] 04:27:00 Test Item Value Reference Range Interpretation [...] (BEAKER) (test code = 2801) CT, BIOPSY, [id number] 17:10:00Reason for exam:->Right L1 vertebra, transverse process. spoke to Dr Salmon already this morning, [facility]: 1940 Sex: MFINAL REPORT CT guided right [...] the lytic lesion using CT guidance. Using [id number] Temno needle, four passes are made, yielding several cores. Disposition: The patient tolerated the procedure well, without immediate complications. The patient left CT in stable condition. Impression: 1. Technically successful CT guided core biopsy of right L1 transverse process. Signed: Michelle Salmon Verified Date/Time: 10/14/2020 17:10:31 Reading Location: [facility] B1 C013X Ortho Consult Reading Room CT Biopsy/Aspiration/Injection 2020-10-14 17:10:00Interface, [...] Salmon Verified Date/Time: 10/14/2020 17:10:31 Reading Location: [facility] C013X [facility]2020-10-14 09:59:00 Test Item Value Reference Range Interpretation Comments SARS-COV2/RT-PCR Negative Not Detected, (test code = Negative, See 29513-0) external report for linked test SARS-COV-2 [facility] PERFORMING LAB (test code = 57962-7) JONATHAN (test code = Negative results do [...] of the Act. Fact Sheet for Healthcare Providers:https://www.Mindscape/Documents/Xper t%20Xpress%20SARS%20CoV- 2/Fact%20Sheets/3023802 %84MCYH-GXS-4%20HEALTHCA RE%20PROVIDERS%20FACT%20 SHEET.pdf Fact Sheet for Healthcare Patients:https://www.Apptentive/Documents/Xpert %20Xpress%20SARS%20CoV-2 /Fact%20Sheets/3023801% 32SKUE-WWI-2%20PATIENT%2 0FACT%20SHEET.pdf Performing Laboratory:[address], [place] [address] [place], [place] [address]ARS-COV2/RT-PCR ([facility])2020-10-14 09:59:00 Test Item Value Reference Range Interpretation Comments SARS-COV2/RT-PCR (test code Negative Not Detected, Negative, = 0205642) See external report for linked test SARS-COV-[address] [facility] (test code = 2968369) Negative results do not preclude SARS-CoV-2 infection [...] of the Act.Fact Sheet for Healthcare Pro viders:https://www.Modusly/Documents/Xpert%20Xpress%20SARS%20CoV-2/Fact%20Sh eets/302-3802%35BTBP-LKK-7%20HEALTHCARE%20PROVIDERS%20FACT%20SHEET.pdfFact Sheet for Healthcare Patients:https://www.CyberVision Text/Documents/Xpert%20Xpress%20SARS%20CoV-2/Fact%20Sheets/302-3801%20SARS-COV -2%20PATIENT%20FACT%20SHEET.pdfPerforming Laboratory:[place] [address] [address] [place], [place] [address]VQLLG METABOLIC [id number] 09:07:00 Test Item Value Reference Range Interpretation [...] 1092) DATA TO CALCULA TE ESTIMATED GFR. Ripsawyer ID - EMERSONVitamin B12 and [id number] 08:38:00 Test Item Value Reference Range Interpretation Comments Vitamin B12 (test 606 pg/mL 213-816 code = 2132-9) Folate (test code = 7.50 ng/mL See_Comment [Automa lukasz 2284-8) message] The system which generated this result transmit lukasz reference range : >=7.00. The reference range was not used to interpret this result as normal/abnormal . JONATHAN (test code = JONATHAN) Ripsawyer ID - NAYELI L Lab Interpretation Normal (test code = 25818-2) [facility] [id number] 08:38:00 Test Item Value Reference Range Interpretation Comments VITAMIN B12 (BEAKER) 606 pg/mL 213-816 (test code = 774) FOLATE (BEAKER) 7.50 ng/mL See_Comment [Automated message] (test code = 362) The system which generated this result transmitted ref erence range: >=7.00. The reference range was not used to interpr et this result as normal/abnormal . Ripsawyer ID - NAYELI LTSH/Free T4 If [id number] 06:13:00 Test Item Value Reference Range Interpretation Comments TSH (test code = 1.981 See_Comment [Automated 36818-6) message] The system which generated this result transmit lukasz reference range : 0.350 - 4.940 uIU/mL. The reference range was not used to interpret this result as normal/abnormal . JONATHAN (test code = JONATHAN) Ripsawyer ID - CHRIS Hernandez Lab Interpretation Normal (test code = 27616-9) [facility] T4 IF [id number] 06:13:00 Test Item Value Reference Range Interpretation Comments THYROID STIMULATING HORMONE 1.981 uIU/mL 0.350-4.940 (BEAKER) (test code = 772) Ripsawyer ID - CHRIS MCBC W/PLT COUNT & AUTO [id number] 05:24:00 Test Item Value Reference Range Interpretation [...] = 2801) Urinalysis w/Microscopic + Reflex to [id number] 03:19:00 Test Item Value Reference Range Interpretation Comments Color, UA (test Light Yellow code = 5778-6) Clarity, UA (test Clear code = 5767-9) Specific [place], 1.033 1.001-1.035 UA (test code = 5811-5) pH, UA (test code 5.5 5.0-8.0 = 5803-2) Protein, UA (test Negative Negative code = 69022-0) Glucose, UA (test Negative Negative code = 365) Ketones, UA (test Negative Negative code = 2514-8) Bilirubin, UA Negative Negative (test code = 27363-1) Blood, UA (test Negative Negative code = 76154-3) Nitrite, UA (test Negative Negative code = 5802-4) Leukocytes, UA Negative Negative (test code = 5799-2) Urobilinogen, UA 0.2 mg/dL 0.2-1 (test code = 07095-6) RBC, UA (test <1 See_Comment [Automated me ssage] code = 11040-7) The system [facility] generated this result transmit lukasz reference range : /HPF. The refer ence range was not u sed to interpret th is result as normal/abnormal . WBC, UA (test <1 See_Comment [Automated me ssage] code = 5821-4) The system [facility] generated this result transmit lukasz reference range : /HPF. The refer ence range was not u sed to interpret th is result as normal/abnormal . Squam Epithel, UA <1 See_Comment [Automate d message] (test code = The system [facility] h 85138-6) generated this result transmit lukasz reference range : /HPF. The refer ence range was not u sed to interpret th is result as normal/abnormal . Specimen Source (test code = 2795) JONATHAN (test code = Ripsawyer ID - JONATHAN) [auto]Ripsawyer ID - tech [facility] W/ REFLEX URINE [id number] 03:19:00 Test Item Value Reference Range Interpretation [...] = 516) SOURCE(BEAKER) (test code = 2795) Ripsawyer ID - [auto]Ripsawyer ID - techCT, SPINE, LUMBAR, W/ WITHOUT CONTRAST 2020-10-14 01:03:00Unlisted Reason for Exam - Click Yes and Enter Reason Below->NoDO[facility]Name: [facility] : 1940 Sex: MFINAL [...] Enlarged heterogeneous prostate gland. Signed: Justine Paz [facility] Verified Date/Time: 10/14/2020 01:03:04 [facility] spine lumbar without & with IV [id number] 01:03:00Interface, External Ris In - 10/14/2020 1:[address] Lumbar spine with and without contrast CLINICAL HISTORY: Back pain or radiculopathy, cancer or infection suspected TECHNIQUE: Contiguous noncontrast axial images of the lumbar spine with and without contrast with coronal and sagittal reformations to assess the alignment. This exam was performed according to thedepartmental dose optimization program which includes automated exposure [...] Enlarged heterogeneous prostate gland. Signed: Justine Paz [facility] Verified Date/Time: 10/14/2020 01:03:04 Eli ctronically signed by: JUSTINE PAZ MD on 10/14/2020 01:03 [facility] [id number] 00:25:00Reason for exam:->ALTERED MENTAL STATUSWhat is the patient's sedation requirement?- >No SedationTJ [facility] 1940 Sex: MFINAL [...] Elly Jaimes MDReport Verified Date/Time: 10/14/2020 00:25:28 CT brain without IV [id number] 00:25:00Interface, External Ris In - 10/14/2020 12:27 [...] Elly Jaimes MDReport Verified Date/Time: 10/14/2020 00:25:28 [facility] CenterABORH, [id number] 21:51:00 Test Item Value Reference Range Interpretation Comments ABO Grouping (test code = 2588) A Rh Factor (test code = 2589) POS [facility]inaType and screen, automated ([facility] and [facility] only) 2020-10-13 18:31:00 Test Item Value Reference Range Interpretation Comments Ab Scrn (test code = 890-4) NEGATIVE echo1 [facility]inaComprehensive metabolic [id number] 18:00:00 Test Item Value Reference Range Interpretation Comments Protein, Total (test 6.8 See_Comment [Autom ated code = 2885-2) message] The system which generated this result transmit lukasz reference range : 6.0 - 8.3 gm/dL . The reference range was not u sed to interpret th is result as normal/abnormal . Albumin (test code = 3.8 g/dL 3.5-5 27212-8) Alkaline Phosphatase 76 U/L 40-150 (test code = 6768-6) Total Bilirubin (test 0.5 mg/dL 0.2-1.2 code = 1975-2) Sodium (test code = 141 meq/L 976-779 6163-2) Potassium (test code 4.7 meq/L 3.5-5.1 = 2823-3) Chloride (test code = 105 meq/L 98-107 5-0) CO2 (test code = 27 meq/L 22-29 8-9) BUN (test code = 26 mg/dL 7-21 H 3094-0) Creatinine (test code 0.98 mg/dL 0.57-1.25 = 2160-0) Glucose (test code = 112 mg/dL 70-105 H 2345-7) Calcium (test code = 8.9 mg/dL 8.4-10.2 12122-7) AST (test code = 14 U/L 5-34 1920-8) ALT (test code = 17 U/L 6-55 1742-6) EGFR (test [place] = [place] [address]-0) CLINICAL DATA T O CALCULATE ESTIMATED GFR. JONATHAN (test code = JONATHAN) Ripsawyer ID - BS Lab Interpretation Abnormal (test code = 74490-7) [facility]inaCOMPREHENSIVE METABOLIC [id number] 18:00:00 Test Item Value Reference Range Interpretation [...] 1092) DATA TO CALCULA TE ESTIMATED GFR. Ripsawyer ID - [id number] 17:52:00 Test Item Value Reference Interpretation Comments Range Protime (test code = 12.9 See_Comment [Autom ated 5902-2) message] The system which generated this result transmitted reference range : 11.9 - 14.2 seconds. The reference range was not used to interpret this result as normal/abnormal . INR (test code = 1.00 See_Comment [Automated 0991-6) message] The system which generated this result transmitted reference range : <=5.90. The reference range was not used to interpret this result as normal/abnormal . PTT (test code = 27.0 See_Comment [Automated 55437-5) message] The system which generated this result [...] valves. Lab Interpretation Normal (test code = 17076-4) [facility]inaPT/[id number] 17:52:00 Test Item Value Reference Range Interpretation [...] mechanical heart valves.CBC W/PLT COUNT & AUTO [id number] 17:49:00 Test Item Value Reference Range Interpretation [...] code = 2801) - XR FLUOROSCOPY 0-60 [id number] 12:24:00 Name: DONNA RACHEL II [facility] : 1940 Age/S: 78 / M [address] Unit #: [id number] Loc: [place] [address] Phys: Joe Quinn MD Acct: [id number] Dis Date: Status: REG DNA Guide PHONE #: [phone] Exam Date: 04/11/2019 0900 FAX #: Reason: LASER LIT HOTRIPSY EXAMS: CPT: [id number] XR FLUOROSCOPY 0-60 MIN 69009 Fluoro Time: 29 SEC DAP (Gy m2): [...] PAGE1 Signed Report Name: DONNA RACHEL II [facility] : 1940 Age/S: 78 / M [address] Unit #: [id number] Loc: [place] [address] Phys: Joe Quinn MD Acct: [id number] Dis Date: Status: REG [facility] PHONE #: [phone] Exam Date: 04/11/2019 0900 FAX #: Reason: LASER LITHOTRIPSY EXAMS: CPT: [id number] XR FLUOROSCOPY 0-60 MIN 11639 Fluoro Time: 29 SEC DAP (Gy m2): Air Kerma (mGy): <Continued> Technologist: Florencia Weston, RT(R) Trnscb Date/Time: 04/11/2019 (7919) [id number] Orig Print D/T: S: 04/11/2019 (3086) PAGE 2 Signed Report- XR FLUOROSCOPY 0-60 [id number] 16:33:00 Name: DONNA RACHEL II [facility] : 1940 Age/S: 78 / M [address] Unit #: [id number] Loc: [place] [address] Phys: Joe Quinn MD Acct: [id number] Dis Date: Status: REG [facility] PHONE #: [phone] Exam Date: 03/21/2019 1515 FAX #: Reason: CYSTOSCOPY RETRO PYELOGRAM LASER LITHOTRIPSY EXAMS: CPT: [id number] XR FLUOROSCOPY 0-60 MIN 71319 Fluoro Time: 43 SEC DAP (Gy m2): [...] 1 Signed Report Name: DONNA RACHEL II [facility] : 1940 Age/S: 78 / M [address] Unit #: [id number] Loc: [place] [address] Phys: Joe Quinn MD Acct: [id number] Dis Date: Status: REG [facility] PHONE #: [phone] Exam Date: 03/21/2019 1513 FAX #: Reason: CYSTOSCOPY RETRO PYELOGRAM LASER LITHOTRIPSY EXAMS: CPT: [id number] XR FLUOROSCOPY0-60 MIN 80408 Fluoro Time: 43 SEC DAP (Gy m2): Air Kerma (mGy): <Continued> Technologist: Florencia Weston RT(R) Trnscb Date/Time: 03/21/2019 (7390) [email or web address] Orig Print D/T: S: 03/21/2019 (8420) PAGE 2 Signed Report
[2021-01-04 16:46] LABS: Absolute Lymphocytes (CBC) 1.4 K/uL (0.7-4.9); Hematocrit 38.6 % (39.6-49.0); MPV 8.9 fL (7.6-11.3); RBC Red Blood Cell Count 4.07 M/uL (4.33-5.43)
[2021-01-04 16:49] LABS: Protime INR 0.96
[2021-01-04 17:17] LABS: Albumin 2.4 g/dL (3.4-5.0); Bilirubin Direct 0.2 mg/dL (0-0.2); Bilirubin Total 0.7 mg/dL (0.2-1.0); Magnesium 1.8 mg/dL (1.8-2.4); Potassium 3.6 mmol/L (3.5-5.1); Protein, Total 5.5 g/dL (6.4-8.2); Thyroid Stimulating Hormone 3.02 uIU/mL (0.360-3.740); Troponin (Emerg Dept Use Only) 0.05 ng/mL (0.0-0.045)
--- NOTE | 2021-01-04 17:56 | RAD REPORT ---
EXAM DESCRIPTION: RAD - Chest Single View - 01/04/2021 4:52 pm CLINICAL HISTORY: SOB COMPARISON: December 28 TECHNIQUE: AP portable chest image was obtained 01/04/2021 4:52 pm . FINDINGS: Lungs are clear. Heart and vasculature are normal. No measurable pleural effusion and no p neumothorax. No acute bony abnormality seen. No acute aortic findings suspected. IMPRESSION: No acute cardiopulmonary process. No significant change from comparison study.
--- NOTE | 2021-01-04 18:53 | EDPHYS ---
Physician Documentation [facility] Name: Edgar Lockwood II Age: 80 yrs Sex: Male : 1940 Arrival Date: 01/04/2021 Time: 16:09 Bed 3 Private MD: ED Physician Fernandez Berumen HPI: 01/04 16:21 This 80 yrs old Male presents to ER via EMS with complaints of Palpitations, pm1 Shortness Of Breath. 16:21 The patient presents with a history of irregular heart beat. Context: The symptoms pm1 occur at rest. Onset: The symptoms/episode began/occurred 2 day(s) ago. Duration: The patient or guardian reports multiple episodes, that have now resolved. Modifying factors: The symptoms are aggravated by not taking amiodarone. Associated signs and symptoms: Pertinent positives: SOB, Pertinent negatives: chest pain, cough. Severity of symptoms: in the emergency department the symptoms have resolved Pain is currently a 0 / 10. Historical: - Allergies: 16:10 NKDA; aa5 - Home Meds: 16:10 hydrocodone-acetaminophen 10-325 mg Oral tab every 6 hours for pain [Active]; morphine aa5 15 mg Oral cap twice a day [Active]; trazodone 150 mg Oral tab at bedtime [Active]; gabapentin 100 mg oral cap 3 times per day [Active]; aspirin 81 mg Oral chew 1 tab once daily [Active]; amiodarone 200 mg Oral tab 1 tab once daily [Active]; - PMHx: 16:10 Atrial Fib; Hyperlipidemia; Lung Cancer; aa5 18:30 Chemotherapy; aa5 - Immunization history:: Adult Immunizations unknown. - Social history:: Smoking status: unknown. ROS: 16:21 Constitutional: Negative for fever, chills, and weight loss. pm1 16:21 Abdomen/GI: Negative for abdominal pain, nausea, vomiting, diarrhea, and constipation, Back: Negative for injury and pain, Neuro: Negative for headache, weakness, numbness, tingling, and seizure. 16:21 Cardiovascular: Positive for palpitations, Negative for chest pain, edema. 16:21 Respiratory: Positive for shortness of breath, Negative for cough, wheezing. 16:21 All other systems are negative. Exam: 16:21 Constitutional: This is a well developed, well nourished patient who is awake, alert, pm1 and in no acute distress. Head/Face: Normocephalic, atraumatic. 16:21 Back: No spinal tenderness. No costovertebral tenderness. Full range of motion. Skin: Warm, dry with normal turgor. Normal color with no rashes, no lesions, and no evidence of cellulitis. MS/ Extremity: Pulses equal, no cyanosis. Neurovascular intact. Full, normal range of motion. 16:21 Cardiovascular: Rate: normal, Rhythm: irregular, Pulses: no pulse deficits are appreciated, Edema: is not appreciated. 16:21 Respiratory: Exam negative for acute changes, respiratory distress, shortness of breath, Breath sounds: are clear throughout. 16:21 Abdomen/GI: Inspection: abdomen appears normal, Palpation: abdomen is soft and non-tender, in all quadrants. 16:21 Neuro: Exam negative for acute changes, Orientation: is normal, Mentation: is normal, Motor: is normal, moves all fours. Vital Signs: 16:09 BP 113 / 74; Pulse 75; Resp 16 S; Temp 98.7(O); Pulse Ox 100% on R/A; Pain 0/10; aa5 18:00 BP 121 / 75; Pulse 89; Resp 18 S; Pulse Ox 99% on R/A; aa5 18:54 Weight 65.77 kg; aa5 MDM: 16:17 Patient medically screened. pm1 16:17 Data reviewed: vital signs. pm1 18:17 Data interpreted: Pulse oximetry: on room air is 100 %. Interpretation: normal. pm1 18:28 Counseling: I had a detailed discussion with the patient and/or guardian regarding: the pm1 historical points, exam findings, and any diagnostic results supporting the discharge/admit diagnosis, lab results, radiology results, the need for further work-up and treatment in the hospital. 18:50 Physician consultation: Adam NAVAS regarding admission, patient's condition. pm1 01/04 16:18 Order name: Basic Metabolic Panel; Complete Time: 17:37 pm1 01/04 16:18 Order name: CBC with Diff; Complete Time: 16:48 pm1 01/04 16:18 Order name: LFT's; Complete Time: 17:37 pm1 01/04 16:18 Order name: Magnesium; Complete Time: 17:37 pm1 07/06 16:18 Order name: NT PRO-BNP; Complete Time: 17:37 pm1 01/04 16:18 Order name: PT-INR; Complete Time: 17:37 pm1 01/04 16:18 Order name: Troponin (emerg Dept Use Only); Complete Time: 17:37 pm1 01/04 16:18 Order name: XRAY Chest (1 view); Complete Time: 18:05 pm1 01/04 16:18 Order name: TSH; Complete Time: 17:37 pm1 01/04 18:35 Order name: COVID-19 : Document "Date of Symptom Onset" if Symptomatic. pm1 01/04 16:18 Order name: EKG; Complete Time: 16:18 pm1 01/04 16:18 Order name: Cardiac monitoring; Complete Time: 16:37 pm1 01/04 16:18 Order name: EKG - Nurse/Tech; Complete Time: 16:37 pm1 01/04 16:18 Order name: IV Saline Lock; Complete Time: 16:37 pm1 01/04 16:18 Order name: Labs collected and sent; Complete Time: 16:37 pm1 01/04 16:18 Order name: O2 Per Protocol; Complete Time: 16:37 pm1 01/04 16:18 Order name: O2 Sat Monitoring; Complete Time: 16:37 pm1 Administered Medications: 18:43 Drug: amiodarone 200 mg Route: PO; aa5 20:27 Follow up: Response: No adverse reaction ad5 18:45 Drug: NS 0.9% 500 ml Volume: 500 ml; Route: IV; Rate: 1 bolus; Site: right antecubital; aa5 21:00 Follow up: Response: No adverse reaction; IV Status: Completed infusion; IV Intake: ea 500ml 18:45 Drug: NS 0.9% 1000 ml Route: IV; Rate: 100 ml/hr; Site: right antecubital; aa5 21:00 Follow up: Response: No adverse reaction; IV Status: Infusion continued upon admission ea 18:45 Drug: Xopenex (levalbuterol) 2.5 mg Route: Inhalation; aa5 20:27 Follow up: Response: No adverse reaction ad5 18:58 Drug: Lovenox (enoxaparin) 1 mg/kg Route: Sub-Q; Site: left lower abdomen; aa5 20:27 Follow up: Response: No adverse reaction ad5 Disposition: 01/05 09:33 Co-signature as Attending Physician, Fernandez Berumen MD I agree with the assessment and rober plan of care. Disposition Summary: 01/04/21 18:51 Hospitalization Ordered Hospitalization Status: Observation pm1 Provider: Ellis Bolanos pm1 Location: Telemetry/MedSurg (observation) pm1 Condition: Stable pm1 Problem: new pm1 Symptoms: have improved pm1 Bed/Room Type: Standard pm1 Room Assignment: 201(01/04/21 19:40) tl1 Diagnosis - Unspecified atrial fibrillation pm1 Forms: - Medication Reconciliation Form pm1 - SBAR form pm1 Signatures: Dispatcher [employer] EDFenrandez Oliver MD MD cha Calderon, Audri, RN RN aa5 Mary Santoyo RN RN tl1 Anastacio Griffith, LANGUAGE TRANSLATOR LANGUAGE TRANSLATOR pm1 Pallavi Kaplan RN, ea, Andrea ad5 Corrections: (The following items were deleted from the chart) 01/04 19:40 18:51 pm1 tl1
--- NOTE | 2021-01-04 18:53 | ER ---
Nurse's Notes [facility] Name: Edgar Lockwood II Age: 80 yrs Sex: Male : 1940 Arrival Date: 01/04/2021 Time: 16:09 Bed 3 Private MD: Diagnosis: Unspecified atrial fibrillation Presentation: 01/04 16:09 Chief complaint: EMS states: family called 911 for fast heart rate, pt was found aa5 lethargic and A-fib with RVR fluctuating from 80 to 120 bpm. EMS reports pt has not taken amiodarone for 3 to 4 days. BP 90s systolic en route. 18G to R AC and given 500cc NS bolus DOBBY LOOMS PEGGER. Pt c/o SOB x 3 days ago. 16:09 Coronavirus screen: At this time, the client does not indicate any symptoms associated aa5 with coronavirus-19. Ebola Screen: Patient negative for fever greater than or equal to 101.5 degrees Fahrenheit, and additional compatible Ebola Virus Disease symptoms. Initial Sepsis Screen: Does the patient meet any 2 criteria? No. Patient's initial sepsis screen is negative. Does the patient have a suspected source of infection? No. Patient's initial sepsis screen is negative. Risk Assessment: Do you want to hurt yourself or someone else? Patient reports no desire to harm self or others. Onset of symptoms was January 04, 2021. 16:09 Acuity: CLINT 3 aa5 16:09 Method Of Arrival: EMS: [facility] aa5 Historical: - Allergies: 16:10 NKDA; aa5 - Home Meds: 16:10 hydrocodone-acetaminophen 10-325 mg Oral tab every 6 hours for pain [Active]; morphine aa5 15 mg Oral cap twice a day [Active]; trazodone 150 mg Oral tab at bedtime [Active]; gabapentin 100 mg oral cap 3 times per day [Active]; aspirin 81 mg Oral chew 1 tab once daily [Active]; amiodarone 200 mg Oral tab 1 tab once daily [Active]; - PMHx: 16:10 Atrial Fib; Hyperlipidemia; Lung Cancer; aa5 18:30 Chemotherapy; aa5 - Immunization history:: Adult Immunizations unknown. - Social history:: Smoking status: unknown. Screenin:10 Abuse screen: Denies threats or abuse. Nutritional screening: No deficits noted. aa5 Tuberculosis screening: No symptoms or risk factors identified. Fall Risk IV access (20 points). Total Li Fall Scale indicates No Risk (0-24 pts). Assessment: 16:10 General: Appears comfortable, Behavior is calm, cooperative. Pain: Denies pain. Neuro: aa5 Level of Consciousness is awake, obeys commands, confused, Oriented to person, place, time. Cardiovascular: Heart tones S1 S2 present Rhythm is atrial fibrillation. Respiratory: Airway is patent Respiratory effort is even, unlabored, Respiratory pattern is regular, symmetrical, Pt currently denies SOB. Breath sounds are clear bilaterally. GI: Abdomen is non-distended. : No signs and/or symptoms were reported regarding the genitourinary system. EENT: No signs and/or symptoms were reported regarding the EENT system. Derm: Skin is pink, warm \T\ dry. Musculoskeletal: Range of motion: intact in all extremities. 17:00 Reassessment: Pt resting in bed with eyes closed, respirations are even and unlabored, aa5 skin is pink/warm/dry. . 17:45 Reassessment: Pt resting in bed with eyes closed, respirations even and unlabored, skin aa5 is pink/warm/dry. . 18:45 Reassessment: Patient is alert, oriented x 3, equal unlabored respirations, skin aa5 warm/dry/pink. Patient denies pain at this time. 18:59 Reassessment: Adam Guzman FINISHING TUNNEL OPERATOR at bedside (hospitalist) speaking to pt and pt's . . aa5 19:15 Reassessment: Patient appears in no apparent distress at this time. Patient and/or ad5 family updated on plan of care and expected duration. Pain level reassessed. Patient is alert, oriented x 3, equal unlabored respirations, skin warm/dry/pink. Vital Signs: 16:09 BP 113 / 74; Pulse 75; Resp 16 S; Temp 98.7(O); Pulse Ox 100% on R/A; Pain 0/10; aa5 18:00 BP 121 / 75; Pulse 89; Resp 18 S; Pulse Ox 99% on R/A; aa5 18:54 Weight 65.77 kg; aa5 ED Course: 16:09 Patient arrived in ED. aa5 16:09 Arm band placed on Patient placed in an exam room, on a stretcher. aa5 16:10 Patient has correct armband on for positive identification. Placed in gown. Bed in low aa5 position. Call light in reach. Side rails up X2. 16:10 monitoring engineer on. Pulse ox on. NIBP on. aa5 16:13 Anastacio Griffith NP is PHCP. pm1 16:13 Fernandez Berumen MD is Attending Physician. pm1 16:25 Initial lab(s) drawn, by me, sent to lab. aa5 16:37 Bethany Sung, DAVE is Primary Nurse. aa5 16:46 Triage completed. aa5 16:52 XRAY Chest (1 view) In Process Unspecified. EDMS 18:51 Ellis Bolanos DO is Hospitalizing Provider. pm1 19:11 Report given to DAVE Olivo and DAVE Daniels. aa5 20:47 No provider procedures requiring assistance completed. Patient admitted, IV remains in ad5 place. Administered Medications: 18:43 Drug: amiodarone 200 mg Route: PO; aa5 20:27 Follow up: Response: No adverse reaction ad5 18:45 Drug: NS 0.9% 500 ml Volume: 500 ml; Route: IV; Rate: 1 bolus; Site: right antecubital; aa5 21:00 Follow up: Response: No adverse reaction; IV Status: Completed infusion; IV Intake: ea 500ml 18:45 Drug: NS 0.9% 1000 ml Route: IV; Rate: 100 ml/hr; Site: right antecubital; aa5 21:00 Follow up: Response: No adverse reaction; IV Status: Infusion continued upon admission ea 18:45 Drug: Xopenex (levalbuterol) 2.5 mg Route: Inhalation; aa5 20:27 Follow up: Response: No adverse reaction ad5 18:58 Drug: Lovenox (enoxaparin) 1 mg/kg Route: Sub-Q; Site: left lower abdomen; aa5 20:27 Follow up: Response: No adverse reaction ad5 Intake: 21:00 IV: 500ml; Total: 500ml. ea Outcome: 18:51 Decision to Hospitalize by Provider. pm1 20:47 Admitted to Med/surg ad5 20:47 Condition: stable 20:47 Instructed on the need for admit, Demonstrated understanding of instructions. 21:00 Patient left the ED. ea Signatures: Dispatcher [employer] Bethany Delgado, RN RN aa5 Anastacio Griffith, FINISHING TUNNEL OPERATOR FINISHING TUNNEL OPERATOR pm1 Pallavi Kaplan, RN RN Jeremiah Lyle
[2021-01-04] MEDS ORDERED: AMIODARONE HCL 200 MG TAB ONE (18:57)
[2021-01-04] MEDS ORDERED: NA CHLORIDE 0.9% 1,000 ML ONE (18:58)
[2021-01-04] MEDS ORDERED: NA CHLORIDE 0.9% 500 ML ONE (18:58)
[2021-01-04] MEDS ORDERED: LEVALBUTEROL 1.25 MG/3 ML NEB ONE (18:58)
[2021-01-04] MEDS ORDERED: ENOXAPARIN 80 MG/0.8 ML SQ ONE (19:17)
--- NOTE | 2021-01-04 19:20 | P.HP ---
Certification for Inpatient Patient admitted to: Observation With expected LOS: <2 Midnights Patient will require the following post-hospital care: None Practitioner: I am a practitioner with admitting privileges, knowledge of patient current condition, hospital course, and medical plan of care. Services: Services provided to patient in accordance with Admission requirements found in Title 42 Section 412.3 of the Code of Federal Regulations Patient History Date of Service: 01/04/21 Primary Care Provider: Doctor Zavaleta Reason for admission: Chest pain History of Present Illness: 80-year-old male with history of atrial fibrillation not compliant with anti coagulation, stage IV lung cancer, questionable history of COPD, hypertension presents emergency department for chest pain, shortness of breath. Patient reports he has had intermittent chest pain over the course of the last 2 days with some additional shortness of breath. Patient currently on oral chemotherapy for stage IV lung cancer, takes amiodarone and a daily aspirin for his atrial fibrillation, reports he would discontinue the use of his other oral anticoagulants on his own. Patient evaluated in the emergency department, an EKG demonstrates AFib, labs significant for creatinine 1.32 GFR 52 BUN 26 AST 125 a okay at 1:18 a.m. troponin 0.05 BNP 2603. ED provider wishes to admit for chest pain under observation. When I saw the patient in the ER he is awake, alert, oriented x3. Patient reports chest pain has resolved at this time, vital signs stable will admit under observation. Allergies No Known Allergies Allergy (Verified 12/29/20 00:53) Home Medications: Amiodarone HCl [Cordarone Tab] 200 mg PO DAILY 12/29/20 Aspirin 1 tab PO DAILY 12/29/20 Dabrafemib Mesylate 75 mg PO DAILY 12/29/20 Gabapentin 300 mg PO DAILY 12/29/20 Hydrocodone 5/APAP 325 [[place] 5/325*] 1 tab PO BID PRN 12/29/20 Morphine *Extended Release* [MS Contin] 15 mg PO BEDTIME 12/29/20 Sennosides/Docusate Sodium [Senna-S Tablet] 8.6 mg PO BID 12/29/20 Trametinib Dimethyl Sulfoxide [Mekinist] 1 tab PO Q12H 12/29/20 dexAMETHasone [Dexamethasone] 4 mg PO TID 12/29/20 - Past Medical/Surgical History Diabetic: No -: hyperlipidemia -: Atrial fibrillation -: dementia -: small cell lung cancer -: Rotator cuff sx rt -: Lumbar 2&3 fusion -: Back Sx -: prostate sx Psychosocial/ Personal History: , son is ER doctor in [place] - Family History Mother -: Cancer Notes: metastatic Father Notes: none - Social History Smoking Status: Former smoker Alcohol use: No CD- Drugs: No Caffeine use: No Place of Residence: Home Review of Systems 10-point ROS is otherwise unremarkable Respiratory: Shortness of Breath Cardiovascular: Chest Pain, As per HPI Physical Examination - Physical Exam General: Alert, In no apparent distress, Oriented x3 HEENT: Atraumatic, PERRLA, Mucous membr. moist/pink Neck: Supple, 2+ carotid pulse no bruit, No LAD Respiratory: Normal air movement, Expiratory wheezes (Mild expiratory wheezing noted, no respiratory distress) Cardiovascular: No edema, Normal S1 S2, Irregular heart rate/rhythm (Atrial fibrillation, rate around 100) Capillary refill: <2 Seconds Gastrointestinal: Normal bowel sounds, No tenderness Musculoskeletal: No tenderness Integumentary: No rashes Neurological: Normal speech, Normal strength at 5/5 x4 extr, Normal tone, Normal affect - Studies Laboratory Data (last 24 hrs) 01/04/21 16:30: PT 11.0, INR 0.96 01/04/21 16:30: WBC 6.20 D, Hgb 13.4 L, Hct 38.6 L D, Plt Count 131 L 01/04/21 16:30: Sodium 140, Potassium 3.6, BUN 26 H, Creatinine 1.32 H, Glucose 96, Magnesium 1.8, Total Bilirubin 0.7, AST 125 H, ALT 71, Alkaline Phosphatase 118 H Assessment and Plan - Plan Assessment Chest pain rule out ACS Atrial fibrillation not compliant with anticoagulation therapy Stage IV lung cancer COPD Plan Chest pain rule out ACS: Monitor on telemetry, trend troponins, given full dose Lovenox in the emergency department, will continue this. Cardiology consulted as well for additional assistance in managing chest pain/atrial fibrillation. Patient chest pain free at this time, appears stable. Will continue to monitor throughout the evening, likely discharge tomorrow. Atrial fibrillation not compliant with anticoagulation therapy: Patient previously prescribed anticoagulant but stopped on his own, reports taking aspirin 81 mg p.o. daily, will continue with full-dose Lovenox at this time and await further recommendations from cardiology regarding long-term anticoagulation therapy. Continue amiodarone 200 mg p.o. b.i.d., patient did not take any underlying yesterday as he was having nausea. Stage IV lung cancer: Patient on oral chemotherapy, continue this. COPD: Mild expiratory wheezing noted on exam, continue with p.r.n. nebulizer treatments. Discharge Plan: Home Plan to discharge in: 24 Hours - Advance Directives Does patient have a Living Will: Yes Does patient have a Durable POA for Healthcare: Yes - Code Status/Comfort Care Code Status Assessed: Yes (Full code) Critical Care: No Time Spent Managing Pts Care (In Minutes): 55
[2021-01-04] MEDS ORDERED: ALBUTEROL 2.5 MG/3 ML NEB SOL NEB PRN (20:49)
[2021-01-04] MEDS ORDERED: ACETAMINOPHEN 500 MG TAB PO PRN (20:49)
[2021-01-04] MEDS ORDERED: NA CHLORIDE 0.9% 1,000 ML IV SCH (20:49)
[2021-01-04] MEDS ORDERED: ONDANSETRON 4 MG/2 ML VIAL IV PRN (20:49)
[2021-01-04] MEDS ORDERED: AMIODARONE HCL 200 MG TAB PO SCH (21:00)
[2021-01-04] MEDS ORDERED: ATORVASTATIN 40 MG TAB PO SCH (21:00)
[2021-01-04 21:16] VITALS: BMI 22.8
[2021-01-05 01:47] VITALS: O2SAT 97
[2021-01-05] MEDS ORDERED: HYDROCODONE/APAP 5/325 MG TAB PO PRN (03:14)
[2021-01-05] MEDS ORDERED: MORPHINE *EXTENDED RELEASE* 15 MG TAB PO PRN (05:02)
[2021-01-05 05:56] LABS: Absolute Lymphocytes (CBC) 1.3 K/uL (0.7-4.9); Basophils % 0.9 % (0-1.3); Hematocrit 34.5 % (39.6-49.0); MPV 8.3 fL (7.6-11.3); RBC Red Blood Cell Count 3.65 M/uL (4.33-5.43)
--- NOTE | 2021-01-05 05:58 | P.DS ---
Admission Date: 01/04/21 Discharge Date: 01/05/21 Primary Care Provider: Dr Zavaleta Disposition: ROUTINE DISCHARGE Discharge Condition: GOOD Reason for Admission: Chest pain Consultations: Cardiology-Dr. Guerrero Procedures: COVID: Negative CXR: FINDINGS: Lungs are clear. Heart and vasculature are normal. No measurable pleural effusion and no pneumothorax. No acute bony abnormality seen. No acute aortic findings suspected. IMPRESSION: No acute cardiopulmonary process. No significant change from comparison study Medical Problem List: Chest pain atypical likely COPD exacerbation Atrial fibrillation not compliant with anticoagulation therapy Stage IV lung cancer GERD Depression with anxiety Brief History of Present Illness: 80-year-old male with history of atrial fibrillation not compliant with anti coagulation, stage IV lung cancer, questionable history of COPD, hypertension presents emergency department for chest pain, shortness of breath. Patient reports he has had intermittent chest pain over the course of the last 2 days with some additional shortness of breath. Patient reports he is on oral chemotherapy medication for stage IV lung cancer. He also takes amiodarone and aspirin. Patient was seen and evaluated in the emergency room. Patient admitted for further evaluation and treatment. Hospital Course: Patient presented with chest pain and shortness of breath. Patient with underlying COPD, stage IV lung cancer on chemotherapy and atrial fibrillation. Patient was admitted for further evaluation and treatment. Patient was seen and evaluated by cardiology. Cardiology suspects this is not cardiac related. Cardiology suspects COPD exacerbation. Patient had mild wheezing. Chest x-ray shows no pneumonia. Patient much improved. Patient on room air. At discharge patient will continue with prednisone 10 mg 1 pill daily for 7 days. Will recommend to start Symbicort 2 puffs twice daily for his COPD. Recommend follow-up with his PCP in 1 week to follow-up his hospitalization. Patient may follow-up with cardiology as an outpatient to further address his chronic conditions. Patient with chronic atrial fibrillation. Patient not on chronic anticoagulation therapy due to his risks versus benefit. At discharge the patient will continue with his current medications of amiodarone 200 mg daily and aspirin 81 mg daily. Patient remains in atrial fibrillation with rate controlled. Recommend follow-up with cardiology in 1 to 2 weeks to follow-up his hospitalization and continue his care. Patient with stage IV lung cancer. Patient currently on chemotherapy. At discharge patient will continue with his current medications of Tafinlar 75 mg 2 caps twice daily and Mekinist 2 mg daily. Patient will continue with his current chemotherapy regimen. Recommend follow-up with oncology to further monitor his care. Patient with chronic pain likely related to his stage IV lung cancer. Patient may continue with his current medications including gabapentin 300 mg daily, Hayden as directed and MS Contin 15 mg at bedtime as needed for severe pain. Recommend follow-up with his PCP or chronic pain specialist to further address. Vital Signs/Physical Exam: Temp Pulse Resp BP Pulse Ox 97.3 F 92 H 18 135/66 98 01/05/21 00:00 01/05/21 03:10 01/05/21 04:27 01/05/21 03:10 01/05/21 04:27 General: Alert, In no apparent distress, Oriented x3, Cooperative HEENT: Atraumatic Neck: Supple Respiratory: Expiratory wheezes (Mild wheezing) Cardiovascular: Irregular heart rate/rhythm (A. fib rate controlled) Gastrointestinal: Normal bowel sounds, No tenderness, No masses, No rebound, No guarding Musculoskeletal: No erythema, No tenderness, No warmth Integumentary: No tenderness/swelling Neurological: Normal speech, Normal strength at 5/5 x4 extr, Normal tone, Normal affect Laboratory Data at Discharge: WBC 6.20 K/uL (4.3-10.9) D 01/04/21 16:30 Hgb 13.4 g/dL (13.6-17.9) L 01/04/21 16:30 Hct 38.6 % (39.6-49.0) L D 01/04/21 16:30 Plt Count 131 K/uL (152-406) L 01/04/21 16:30 PT 11.0 SECONDS (9.5-12.5) 01/04/21 16:30 INR 0.96 01/04/21 16:30 Sodium 140 mmol/L (136-145) 01/04/21 16:30 Potassium 3.6 mmol/L (3.5-5.1) 01/04/21 16:30 BUN 26 mg/dL (7-18) H 01/04/21 16:30 Creatinine 1.32 mg/dL (0.55-1.3) H 01/04/21 16:30 Glucose 96 mg/dL (74-106) 01/04/21 16:30 Magnesium 1.8 mg/dL (1.8-2.4) 01/04/21 16:30 Total Bilirubin 0.7 mg/dL (0.2-1.0) 01/04/21 16:30 AST 125 U/L (15-37) H 01/04/21 16:30 ALT 71 U/L (12-78) 01/04/21 16:30 Alkaline Phosphatase 118 U/L (45-117) H 01/04/21 16:30 Troponin I 0.05 ng/mL (0.0-0.045) H 01/04/21 22:35 Home Medications: Amiodarone HCl [Cordarone*] 200 mg PO DAILY 01/04/21 Aspirin 81 mg PO DAILY 01/04/21 Dabrafenib Mesylate [Tafinlar] 2 cap PO BID 01/04/21 Gabapentin 300 mg PO DAILY 01/04/21 Hydrocodone 10/APAP 325 [[place] 10/325*] 0.5 tab PO Q6HP PRN 01/04/21 Morphine *Extended Release* [MS Contin*] 15 mg PO BEDTIME PRN 01/04/21 Omeprazole 20 mg PO DAILY 01/04/21 Trametinib Dimethyl Sulfoxide [Mekinist] 2 mg PO DAILY 01/04/21 Trazodone [Desyrel*] 75 mg PO BEDTIME 01/04/21 Budesonide/Formoterol Fumarate [Symbicort 160-4.5 Mcg Inhaler] 2 puff IH BID #1 hfa.aer.ad 01/05/21 predniSONE [Deltasone*] 10 mg PO DAILY #7 tab 01/05/21 New Medications: predniSONE [Deltasone*] 10 mg PO DAILY #7 tab Budesonide/Formoterol Fumarate [Symbicort 160-4.5 Mcg Inhaler] 2 puff IH BID #1 hfa.aer.ad Physician Discharge Instructions: Patient presented with chest pain and shortness of breath. Patient with underlying COPD, stage IV lung cancer on chemotherapy and atrial fibrillation. Patient was admitted for further evaluation and treatment. Patient was seen and evaluated by cardiology. Cardiology suspects this is not cardiac related. Cardiology suspects COPD exacerbation. Patient had mild wheezing. Chest x-ray shows no pneumonia. Patient much improved. Patient on room air. At discharge patient will continue with prednisone 10 mg 1 pill daily for 7 days. Will recommend to start Symbicort 2 puffs twice daily for his COPD. Recommend follow-up with his PCP in 1 week to follow-up his hospitalization. Patient may follow-up with cardiology as an outpatient to further address his chronic conditions. Patient with chronic atrial fibrillation. Patient not on chronic anticoagulation therapy due to his risks versus benefit. At discharge the patient will continue with his current medications of amiodarone 200 mg daily and aspirin 81 mg daily. Patient remains in atrial fibrillation with rate controlled. Recommend follow-up with cardiology in 1 to 2 weeks to follow-up his hospitalization and continue his care. Patient with stage IV lung cancer. Patient currently on chemotherapy. At discharge patient will continue with his current medications of Tafinlar 75 mg 2 caps twice daily and Mekinist 2 mg daily. Patient will continue with his current chemotherapy regimen. Recommend follow-up with oncology to further monitor his care. Patient with chronic pain likely related to his stage IV lung cancer. Patient may continue with his current medications including gabapentin 300 mg daily, Hayden as directed and MS Contin 15 mg at bedtime as needed for severe pain. Recommend follow-up with his PCP or chronic pain specialist to further address. Diet: AHA Activity: Ad adelaida Followup: NONE,NONE [Primary Care Provider] - Time spent managing pt's care (in minutes): 55
[2021-01-05 06:22] LABS: Albumin 2.3 g/dL (3.4-5.0); Bilirubin Total 0.6 mg/dL (0.2-1.0); Magnesium 1.9 mg/dL (1.8-2.4); Protein, Total 5.1 g/dL (6.4-8.2); Thyroid Stimulating Hormone 3.2 uIU/mL (0.360-3.740); Troponin I 0.06 ng/mL (0.0-0.045)
[2021-01-05 06:26] LABS: Potassium 2.8 mmol/L (3.5-5.1)
[2021-01-05] MEDS ORDERED: PANTOPRAZOLE 40MG TABLET PO SCH (06:30)
[2021-01-05] MEDS ORDERED: POTASSIUM CL 60 MEQ in NA CHLORIDE 0.9% 1,000 ML IV ONE (08:00)
[2021-01-05] MEDS ORDERED: KCL 20 MEQ/100 mL IVPB 20 MEQ/100 ML BAG IV SCH (08:30)
[2021-01-05] MEDS ORDERED: GABAPENTIN 300 MG CAP PO SCH (09:00)
[2021-01-05] MEDS ORDERED: AMIODARONE HCL 200 MG TAB PO SCH (09:00)
[2021-01-05] MEDS ORDERED: Dabrafenib Mesylate [Tafinlar] 75 MG Capsule PO SCH ×2 (09:00→21:00)
[2021-01-05] MEDS ORDERED: ENOXAPARIN 80 MG/0.8 ML SQ SCH (09:00)
[2021-01-05] MEDS ORDERED: Trametinib Dimethyl Sulfoxide [Mekinist] 2 MG Tablet PO SCH (09:00)
[2021-01-05] MEDS ORDERED: ASPIRIN EC 81 MG TAB PO SCH (09:00)
--- NOTE | 2021-01-05 13:01 | EKG ---
Test Date: 2021-01-04 Test Time: 16:17:42 Tribal Delegate: ADELA MEASUREMENT RESULTS: Intervals: Rate: 72 [place]: QRSD: 86 QT: 296 QTc: 324 [place]: P: [place]: QRS: -47 T: 63 INTERPRETIVE STATEMENTS: Atrial fibrillation Left anterior fascicular block Nonspecific T wave abnormality, probably digitalis effect Abnormal ECG Compared to ECG 12/28/2020 21:31:16 Left anterior fascicular block now present Sinus rhythm no longer present Atrial premature complex(es) no longer present T-wave abnormality still present Electronically Signed On 01-05-21 12:59:26 CDT by Anoop Guerrero
[2021-01-05 14:24] VITALS: BP 104/64; TEMP 97.2
[2021-01-05] MEDS ORDERED: TRAZODONE 150 MG TAB PO SCH (21:00)
--- NOTE | 2021-01-06 06:31 | CON ---
Date of Consultation: 01/05/2021 Reason For Consultation: Shortness of breath. History Of Present Illness: Mr. Lockwood is an 80-year-old who came in with dyspnea on exertion. No c hest pain. No nausea. No vomiting. No diaphoresis. Denies any PND, orthopnea, pedal edema, palpit ations, or syncope. Denies any fever or chills or cough. Allergies: NONE. Review of Systems: Negative. Social History: Negative. Family History: Noncontributory. Past Medical History: Include dyslipidemia, lung cancer, atrial fibrillation. He is status post mariah motherapy. Medications: At home include Tylenol No.3, morphine, trazodone, gabapentin, aspirin, and amiodarone. He is not on anticoagulants. Physical Examination: Vital Signs: Stable. He was afebrile. He was in atrial fibrillation, rate of 89. HEENT: Negative. Neck: Supple. No bruit. Chest: Clear. Cardiac: Revealed an irregularly irregular rhythm and rate. No murmurs, gallops, or rubs. Abdomen: Benign. Extremities: Revealed no clubbing, cyanosis, or edema. Diagnostic Data: Showed creatinine of 1.32. Potassium was 2.8. Troponin 0.05. BNP was 2603. Lipi d profile was normal. Impression And Plan: 1.Shortness of breath, more likely secondary to lung cancer and chronic atrial fibrillation. 2.Mildly elevated troponin secondary to chronic atrial fibrillation. 3.Dyslipidemia. 4.Hypokalemia that needs to be corrected. I think an echocardiogram might be reasonable on Mr. Lockwood to rule out pericardial effusion and/or c ardiomyopathy. His atrial fibrillation is well controlled. The blood pressure is well controlled. He has excellent oxygen saturation on room air. He is not an anticoagulation candidate because of hi s cancer and chemotherapy at this point. I am comfortable with him going home whenever it is okay wi th Dr. Bolanos. He did have a normal stress test and normal echocardiogram in 2019. I do not think t his needs to be repeated any time soon. JAMI/MODL Voice ID: [id number] Report ID: [id number]
== END 2021-01-05 15:04 | disposition home health service (06) ==
LOC: ER 16:03 → ERHOLD 19:27 → 2ND 19:59
PROVIDERS: ADMIT Family Medicine; ATTEND Family Medicine
DX: R07.9 Chest pain, unspecified (principal); J44.9 Chronic obstructive pulmonary disease, unspecified; I48.20 Chronic atrial fibrillation, unspecified; Z91.14 Patient's other noncompliance with medication regimen; C34.90 Malignant neoplasm of unspecified part of unspecified bronchus or lung; K21.9 Gastro-esophageal reflux disease without esophagitis; F41.8 Other specified anxiety disorders; I10 Essential (primary) hypertension; Z92.21 Personal history of antineoplastic chemotherapy; E78.5 Hyperlipidemia, unspecified; E87.6 Hypokalemia; F03.90 Unspecified dementia, unspecified severity, without behavioral disturbance, psychotic disturbance, mood disturbance, and anxiety; Z87.891 Personal history of nicotine dependence
CPT/HCPCS: 96361; 93005; 85025 ×2; 80048; 36415; 83735 ×2; 85610; 80061; 80076; 84443 ×2; 84484 ×3; 84439; 80053; 83880; 71045; 94640; 96360; 96372; 99285; J3480; J7040; J7030 ×3; G0378 ×3